=== PATIENT | female | born 1955 | race Caucasian/White ===

== ENCOUNTER 2022-08-14 11:01 | Outpatient (OUT) | payer OTHER, SELFPAY ==
--- NOTE | 2022-08-14 11:09 | MM_ITS ---
Patient: PIETRO FARFAN Exam Date: 08/14/2022 : 1955 Gender:F Ordering : DR. Jacklyn Andres D.O. Admission #: [id number] Family : JACKLYN ANDRES Order #: [id number] CLICK HERE TO VIEW EXAM RADIOLOGY REPORT PROCEDURE: MM TOMOSYNTHESIS SCREENING BI COMPARISON: MG MAMM SCREEN 3D MELECIO CAD, 05/29/2021. MG MAMM SCREEN MELECIO W CAD, 04/25/2020. MG MAMM SCREEN MELECIO W CAD, 12/01/2018. MG MAMM MELECIO SCRN W CAD DIG, 01/15/2012. INDICATIONS: Screening mammogram Z12.31 Calculator Name NCI Breast Cancer Risk Assessment Tool 5 Year Breast Cancer Risk 1.70% Lifetime Breast Cancer Risk 5.10% Personal Breast Cancer No Personal Ovarian Cancer No Treatments None Family Cancers None LOCATION: [facility] BREAST COMPOSITION: Heterogeneously dense,which may obscure small masses. FINDINGS: DIAGNOSTIC CATEGORY 2--BENIGN FINDING: RIGHT BREAST: No significant suspicious finding. Scattered benign-appearing calcifications are present. No significant change has occurred. LEFT BREAST: No significant suspicious finding. Scattered benign-appearing calcifications are present slowly increasing in number. RECOMMENDATIONS: ROUTINE MAMMOGRAM AND CLINICAL EVALUATION IN 12 MONTHS. PLEASE NOTE: A NORMAL MAMMOGRAM DOES NOT EXCLUDE THE POSSIBILITY OF BREAST CANCER. A CLINICALLY SUSPICIOUS PALPABLE LUMP SHOULD BE BIOPSIED. Dictated by: Zac Barber M.D. on 08/14/2022 at 16:50 Approved by: Zac Barber M.D. on 08/14/2022 at 16:53
== END 2022-08-14 11:02 ==
LOC: MAMMO 11:05
PROVIDERS: PCP Family Medicine; Visit Provider Family Medicine
DX: Z12.31 Encounter for screening mammogram for malignant neoplasm of breast (principal)
CPT/HCPCS: 77063; 77067

== ENCOUNTER 2023-09-03 10:20 | Outpatient (OUT) | payer OTHER, SELFPAY ==
--- NOTE | 2023-09-03 10:27 | MM_ITS ---
Patient Name: PIETRO FARFAN MR#: [id number] : 1955 Exam Date: 09/03/2023 Ordering Doctor: Paula Rodriguez RADIOLOGY REPORT PROCEDURE: MM TOMOSYNTHESIS SCREENING BI COMPARISON: MM TOMOSYNTHESIS SCREENING BI, 08/14/2022. MG MAMM SCREEN 3D MELECIO CAD, 05/29/2021. MG MAMM SCREEN MELECIO W CAD, 04/25/2020. MG MAMM MELECIO SCRN W CAD DIG, 01/15/2012. INDICATIONS: Screening Calculator Name NCI Breast Cancer Risk Assessment Tool 5 Year Breast Cancer Risk 1.70% Lifetime Breast Cancer Risk 4.80% Personal Breast Cancer No Personal Ovarian Cancer No Treatments None Family Cancers None LOCATION: [facility] BREAST COMPOSITION: The breasts are heterogeneously dense,which may obscure small masses. FINDINGS: DIAGNOSTIC CATEGORY 2--BENIGN FINDING: RIGHT BREAST: No significant suspicious finding. Scattered benign-appearing calcifications are present. No significant change has occurred. LEFT BREAST: No significant suspicious finding. Scattered benign-appearing calcifications are present. No significant change has occurred. RECOMMENDATIONS: ROUTINE MAMMOGRAM AND CLINICAL EVALUATION IN 12 MONTHS. PLEASE NOTE: A NORMAL MAMMOGRAM DOES NOT EXCLUDE THE POSSIBILITY OF BREAST CANCER. A CLINICALLY SUSPICIOUS PALPABLE LUMP SHOULD BE BIOPSIED. Dictated by: Zac Barber M.D. on 09/03/2023 at 15:07 Approved by: Zac Barber M.D. on 09/03/2023 at 15:11
== END 2023-09-03 10:21 | disposition home or self-care (01) ==
LOC: MAMMO 10:20
PROVIDERS: PCP Nurse Practitioner; Visit Provider Nurse Practitioner
DX: Z12.31 Encounter for screening mammogram for malignant neoplasm of breast (principal)
CPT/HCPCS: 77063; 77067

== ENCOUNTER 2024-03-29 09:36 | Emergency (ER) | payer OTHER, SELFPAY ==
[2024-03-29] VITALS (16 sets, daily range): BP systolic 120–132; BP diastolic 84–97; PULSE 80–89; TEMP 37.6; O2SAT 95–97; BMI 32.4
--- NOTE | 2024-03-29 10:06 | ECG_ITS ---
[facility] Test Date: 2024-03-29 Pat Name: PIETRO FARFAN Department: Room: - Gender: Female [employer]er: : 1955 Requested By: Order Number: [id number] Reading MD: SAL MCKOY Measurements Intervals [place] Rate: 87 P: 45 [place]: 170 QRS: 33 QRSD: 64 T: 12 QT: 332 QTc: 376 Interpretive Statements 1100 Sinus rhythm 4068 Nonspecific Twave abnormality 8102 Low QRS voltage in chest leads 9130 borderline ECG Compared to ECG 03/20/2022 05:07:44 Sinus tachycardia no longer present Electronically Signed On 03-29-2024 20:17:27 EST by SAL MCKOY
--- NOTE | 2024-03-29 10:07 | ED_ITS ---
HPI - Chest Pain General Chief Complaint: Chest Pain Stated Complaint: CHEST PAINS SOB Time Seen by Provider: 03/29/24 10:02 Source: patient Mode of arrival: Wheelchair History of Present Illness HPI narrative: 68-year-old female presents to the emergency department for chest pain. She has been having this intermittently for 4 days. They are sharp in the last 1 or 2 seconds at a time and it is in the middle part of her chest. She saw her doctor last week who ordered some tests and those have not yet been done. No cough or complaints of shortness of breath. No fever or back pain. Related Data Allergies Allergy/AdvReac Type Severity Reaction Status Date / Time No Known Drug Allergies Allergy Verified 03/29/24 10:01 Review of Systems ROS Narrative A ten point review of systems is negative except as noted above. [facility] Medical History (Updated 03/29/24 @ 12:33 by Simon Healy MD) Hypertension ?I10 - Essential (primary) hypertension (ICD-10) High cholesterol ?E78.00 - Pure hypercholesterolemia, unspecified (ICD-10) Diabetes ?E11.9 - Type 2 diabetes mellitus without complications (ICD-10) Exam Narrative Exam Narrative: Nurses note and vital signs reviewed and patient is not hypoxic. General: The patient appears well and in no apparent distress. Patient is resting comfortably on cart. Skin: Warm, dry, no pallor noted. There is no rash noted. Head: Normocephalic, atraumatic Eye: Normal conjunctiva, no drainage Ears, Nose, Mouth, and Throat: oral mucosa is moist. Nares patent. Cardiovascular: Regular Rate and Rhythm Respiratory: Patient is in no distress, no accessory muscle use, lungs are clear to auscultation, no wheezing, rales or rhonchi Back: non-tender GI: Soft and nontender Musculoskeletal: The patient has no evidence of calf tenderness, no pitting edema, symmetrical pulses noted bilaterally Neurological: A&O, normal speech Psychiatric: Cooperative Constitutional Vital Signs, click to edit/add: Last Vital Signs Temp 99.6 F 03/29/24 09:56 Pulse 84 03/29/24 12:00 Resp 16 03/29/24 12:00 BP 120/84 03/29/24 10:44 Pulse Ox 95 03/29/24 12:00 O2 Del Method Room Air 03/29/24 09:56 Course Vital Signs Vital signs: Vital Signs Temperature 99.6 F 03/29/24 09:56 Pulse Rate 89 03/29/24 09:56 Respiratory Rate 22 H 03/29/24 09:56 Blood Pressure 132/97 H 03/29/24 09:56 Pulse Oximetry 95 03/29/24 09:56 Oxygen Delivery Method Room Air 03/29/24 09:56 Temperature 99.6 F 03/29/24 09:56 Pulse Rate 84 03/29/24 12:00 Respiratory Rate 16 03/29/24 12:00 Blood Pressure 120/84 03/29/24 10:44 Pulse Oximetry 95 03/29/24 12:00 Oxygen Delivery Method Room Air 03/29/24 09:56 MDM - Chest Pain MDM Narrative Medical decision making narrative: Her workup here is negative including 2 sets of troponin. I do not suspect acute coronary syndrome at this point. She is going to follow-up with her [facility] doctor and have further testing that has been ordered including an echocardiogram as an outpatient. Treatment diagnosis and follow-up were discussed with the patient. Differential Diagnosis Differential diagnosis: Likely pneumothorax, stable angina, unstable angina pectoris, atypical chest pain, st elevation myocardial infarction, co stochondritis and chest pain Lab Data Attestation: I reviewed the patient's lab results. Labs: Lab Results 03/29/24 03/29/24 Range/Units 10:18 11:36 WBC 9.6 (4.0-11.0) 10^3/uL RBC 4.02 L (4.20-5.40) 10^6/uL Hgb 12.2 (12.0-16.0) g/dL Hct 36.9 (36.0-48.0) % MCV 91.8 (81.0-99.0) fL MCH 30.3 (26.7-34.0) pg MCHC 33.1 (29.9-35.2) g/dL RDW 12.6 (11.0-15.0) % Plt Count 260 (150-450) 10^3/uL MPV 10.8 (9.5-13.5) fL Seg Neuts % (Manual) 93.0 H (43.0-75.0) Band Neutrophils % 2.0 (0-5) % Lymphocytes % (Manual) 3.0 L (20.5-60.0) % Monocytes % (Manual) 2.0 (1.7-12.0) % Eosinophils % (Manual) 0.0 L (0.9-7.0) % Basophils % (Manual) 0.0 L (0.2-2.0) % Neutrophils # (Manual) 8.92 H (1.4-6.5) 10^3/uL Band Neutrophils # 0.2 (0.0-0.3) 10^3/uL Lymphocytes # (Manual) 0.28 L (1.20-3.80) 10^3/uL Monocytes # (Manual) 0.19 L (0.30-0.80) 10^3/uL Eosinophils # (Manual) 0.00 (0.00-0.70) 10^3/uL Basophils # (Manual) 0.00 (0.00-0.10) 10^3/uL Poikilocytosis 1+ Tear Drop Cells 1+ Sodium 137 (136-145) mmol/L Potassium 4.1 (3.5-5.1) mmol/L Chloride 104 (98-107) mmol/L Carbon Dioxide 26.2 (21.0-32.0) mmol/L Anion Gap 10.9 BUN 20.0 H (7.0-18.0) mg/dL Creatinine 1.02 (0.55-1.02) mg/dL Est GFR ( Amer) >60 (>=60 mL/min/1.73m^2) Est GFR (Non-Af Amer) 54 L (>=60 mL/min/1.73m^2) BUN/Creatinine Ratio 19.6 Glucose 183 H (74-106) mg/dL Calcium 9.0 (8.5-10.1) mg/dL Troponin I High Sens 5.2 4.5 (4.0-51.3) pg/mL Imaging Data Chest x-ray: Radiologist's impression: ITS Impressions Chest X-Ray 03/29/24 10:25 IMPRESSION: There is no acute cardiopulmonary process. Electronically authenticated by: CIRO SUMMERS Date: 03/29/2024 10:44 ECG Data Attestation: I personally reviewed and interpreted this ECG as follows: (EKG on my interpretation shows normal sinus rhythm with rate of 87 and no acute change.) Heart Score History: Slightly/Non-Suspicious ECG: Normal Age: >65 years Risk Factors: 1 or 2 Risk Factors Troponin: <Normal Limit Total Heart Score Recommendations & Risks:: 3 Discharge Plan Discharge Chief Complaint: Chest Pain Clinical Impression: Chest pain Patient Disposition: Home, Self-Care Time of Disposition Decision: 12:33 Condition: Good Mode of Transportation: Private Vehicle Print Language: Bhutanese Instructions: Chest Pain (ED) Referrals: Paula Rodriguez NP [Physician] - 1 week
[2024-03-29] MEDS: ASPIRIN 81 MG TAB.CHEW 324 MG PO (10:13)
[2024-03-29 10:25] LABS: Hematocrit 36.9 % (36.0-48.0); Hemoglobin 12.2 g/dL (12.0-16.0); Mean Corpuscular HGB Conc 33.1 g/dL (29.9-35.2); Mean Corpuscular Hemoglobin 30.3 pg (26.7-34.0); Mean Corpuscular Volume 91.8 fL (81.0-99.0); Mean Platelet Volume 10.8 fL (9.5-13.5); Platelet Count 260 10^3/uL (150-450); Red Blood Count 4.02 10^6/uL (4.20-5.40); Red Cell Distribution Width 12.6 % (11.0-15.0); White Blood Count 9.6 10^3/uL (4.0-11.0)
--- NOTE | 2024-03-29 10:25 | XR_ITS ---
The [address] [address] Patient Name: PIETRO FARFAN MRN: [id number] date: 1955 Sex: F Assigned Patient Location: ER Current Patient Location: ER Accession/Order Number: [id number] Exam Date: 03/29/2024 10:20 Report Date: 03/29/2024 10:44 At the request of: MARY JO MENDOZA Procedure: XR chest 1V EXAM: XR chest 1V HISTORY: CP COMPARISON: Chest radiograph dated 03/20/2022. TECHNIQUE: AP erect portable chest radiograph performed. FINDINGS: The trachea is unremarkable. Stable mild prominence of the cardiac silhouette. The mediastinal silhouette and hilar shadows are stable and unremarkable. Stable mild elevation of the right hemidiaphragm. There is no consolidation, pleural effusion or pulmonary vascular congestion. There is no pneumothorax or osseous abnormality. XR/XR chest 1V IMPRESSION: There is no acute cardiopulmonary process. Electronically authenticated by: CIRO SUMMERS Date: 03/29/2024 10:44
[2024-03-29 10:40] LABS: Band Neutrophils Absolute 0.2 10^3/uL (0.0-0.3); Segmented Neut Absolute Manual 8.92 10^3/uL (1.4-6.5)
[2024-03-29 10:41] LABS: Anion Gap 10.9; BUN Creatinine Ratio 19.6; Carbon Dioxide 26.2 mmol/L (21.0-32.0); Chloride 104 mmol/L (98-107); Estimated GFR (African America >60 (>=60 mL/min/1.73m^2); Estimated GFR (Non-African Ame 54 (>=60 mL/min/1.73m^2); Glucose 183 mg/dL (74-106); Lymphocytes Absolute Manual 0.28 10^3/uL (1.20-3.80); Monocytes Absolute Manual 0.19 10^3/uL (0.30-0.80); Potassium 4.1 mmol/L (3.5-5.1); Sodium 137 mmol/L (136-145); Troponin I High Sensitivity 5.2 pg/mL (4.0-51.3)
[2024-03-29 10:42] LABS: Poikilocytosis 1+; Tear Drop Cells 1+
[2024-03-29 12:02] LABS: Troponin I High Sensitivity 4.5 pg/mL (4.0-51.3)
== END 2024-03-29 12:52 | disposition home or self-care (01) ==
PROVIDERS: Emergency Provider Emergency Medicine
DX: R07.9 Chest pain, unspecified (principal)
CPT/HCPCS: 36415; 71045; 80048; 84484; 85007; 85027; 93005; 99285

== ENCOUNTER 2024-04-05 07:46 | Outpatient (OUT) | payer OTHER, SELFPAY ==
--- NOTE | 2024-04-05 07:47 | CA_ITS ---
Patient Name: PIETRO FARFAN MR#: [id number] : 1955 Exam Date: 04/05/2024 Ordering Doctor: BRIGID LAY ECHOCARDIOGRAM REPORT PROCEDURE: CA ECHO DOPPLER COMPLETE INDICATIONS: Chest pain, hypertension, diabetes COMPARISON: None. DESCRIPTION: COMPLETE ECHOCARDIOGRAM Real-time transthoracic echocardiography with 2D, M-mode, spectral and color flow Doppler performed. QUALITY: Technical quality was good. LEFT VENTRICLE: Normal chamber size. Normal left ventricular wall thickness. Normal systolic function. LV EF: Normal left ventricular ejection fraction, (65%). DIASTOLIC: Diastolic function is indeterminate. ATRIAL SEPTUM: Visually appears intact. LEFT ATRIUM: Normal chamber size. RIGHT ATRIUM: Normal chamber size. RIGHT VENTRICLE: Normal chamber size. Normal right ventricular systolic function. TRICUSPID VALVE: Normal mobility and thickness. No stenosis with trivial regurgitation. Unable to assess right-sided pressures due to lack of measurable tricuspid regurgitation. MITRAL VALVE: Normal mobility and thickness. No evidence of mitral valve stenosis. There is no mitral annular calcification. No mitral regurgitation. AORTIC VALVE: Normal trileaflet appearance. No visible sclerosis. Normal leaflet mobility. No evidence of aortic valve stenosis. No aortic regurgitation. AORTIC ROOT: Normal diameter and appearance, measuring 2.5 cm. Ascending aorta is normal in size, measuring 2.7 cm. PULMONIC VALVE: Normal thickness and mobility. No stenosis. No regurgitation. PERICARDIUM: No evidence of pericardial effusion. IVC: Collapses with inspirations. PLEURA: CONCLUSION: 1. Normal ventricular size and systolic function. LVEF is estimated at 65%. 2. No significant valvular dysfunction. 3. Unable to assess right-sided pressures due to lack of measurable tricuspid regurgitation. Adult Echocardiography Procedure Report Left Ventricle LVEDD (3.7 - 5.6 cm): 4.99 cm LVESD (2.2 - 4.0 cm): 2.65 cm LVIVS thickness (0.6 - 1.2 cm): 0.83 cm LVPW thickness (0.5 - 1.0 cm): 0.89 cm e': 0.06 m/s E - e': 11.71 LVOT Max Gradient: 5.50 mm[Hg] LVOT Area (cm2): 1.17 m/s Peak Velocity (LVOT): 1.17 m/s Mean Velocity (LVOT): 0.63 m/s LVOT Diameter 2.01 cm Left Atrium LA Volume Index (2D A2C): 29.87 ml/m2 Left Atrium Systolic Dimension: 3.47 cm Mitral Valve MV E to A Ratio: 0.85 Mitral Valve A-Wave Peak Velocity: 0.85 m/s Mitral Valve E-Wave Peak Velocity: 0.71 m/s Right Ventricle Aorta AO Root Diam: 2.50 cm Ascending Ao Diam: 2.66 cm Aortic Valve AoV Area (Peak Daniel): 2.18 cm2, 2.18 cm2 AoV Area (VTI): 2.17 cm2, 2.17 cm2 Peak Velocity(Antegrade Flow): 1.71 m/s Peak Gradient(Antegrade Flow): 11.72 mm[Hg] Mean Velocity(Antegrade Flow): 1.10 m/s Mean Gradient(Antegrade Flow): 5.49 mm[Hg] Velocity Time Integral: 33.71 cm Tricuspid Valve Pulmonic Valve Mean Gradient: 2.34 mm[Hg] Mean Velocity: 0.71 m/s Peak Velocity: 1.09 m/s, 1.00 m/s Peak Gradient: 4.01 mm[Hg], 4.71 mm[Hg] Right Atrium Right Atrium Systolic Pressure: 40.43 ml, 40.43 ml Dictated by: Brandon Vasquez M.D. on 04/05/2024 at 09:23 Approved by: Brandon Vasquez M.D. on 04/05/2024 at 09:27
== END 2024-04-05 07:47 | disposition home or self-care (01) ==
LOC: CARD 07:46
DX: R07.9 Chest pain, unspecified (principal)
CPT/HCPCS: 93306

== ENCOUNTER 2024-04-28 10:03 | Outpatient (OUT) | payer OTHER, SELFPAY ==
--- OUTSIDE RECORDS SUMMARY | 2024-04-28 10:08 | XMS_ITS | CCD ---
Author Organization [facility] Care Team Providers Care Truck Hopper Name Role Phone PHYSICIAN, DEFAULT Unavailable Unavailable PHYSICIAN, DEFAULT Unavailable Unavailable SADI ROSAS Admitting Unavailable SADI ROSAS Attending Unavailable [facility] Primary Care Unavailable WEST, DR BENJAMIN Marshall Consulting Unavailable SADI ROSAS Consulting Unavailable WESLEY, DR AN Admitting Unavailable WESLEY, DR AN Attending Unavailable REQUEST, DR RIOJAS LISTED Primary Care Unavaila de BARBER, DR ZAC Mulligan Consulting Unavailable AHMED, DR AN Consulting Unavailable GUERDA CARRILLO Attending Unavailable CHRISTOPHER RODRIGUEZ Referring Unavailable SID MURPHY Primary Care Unavailable UnallocatDean martin MD Provider Primary Care Provi shaji Shannan Garvey MD Unavailable [phone] Medications Current Medications Medication Drug Class(es) Dates Sig (Normalized) Sig (Original) amLODIPine 10 mg oral tablet (2 sources) Dihydropyridine Calcium Channel Rakan amLODIPine (Norvasc) 10 MG tablet Active cinnamon bark 500 mg oral capsule (2 sources) cinnamon 500 MG capsule as directed Orally Active meloxicam 15 mg oral tablet (2 sources) Nonsteroidal Anti-inflammatory Drug Start: 10-23-2023 End: 11-13-2023 take 1 tablet by mouth once daily meloxicam (Mobic) 15 MG tablet Indications: Plantar fasciitis, bilateral Take 1 tablet (15 mg) by mouth Daily for 21 days 21 tablet 10/23/2023 11/13/2023 Active metFORMIN hydrochloride 850 mg oral tablet (2 sources) Biguanide metFORMIN (Glucophage) 850 MG tablet Active rosuvastatin calcium 10 mg oral tablet (2 sources) HMG-CoA Reductase Inhibitor rosuvastatin (Crestor) 10 MG tablet Active Problems Active Problems Problem Classification Problem Date Documented Da te Episodic/Chronic Conditions associated with dizziness or vertigo (1 source) Dizziness and giddiness; Translations: [Dizziness and giddiness] Onset: 11-11-2023 Episodic Diabetes mellitus with complications (2 sources) Type 2 diabetes mellitus with other diabetic neurological complication; Translations: [Diabetes with neurological manifestations, type II or unspecified type, not stated as uncontrolled] 10-23-2023 Chronic Malaise and fatigue (1 source) Other fatigue; Translations: [Other fatigue] Onset: 11-11-2023 Episodic Nausea and vomiting (1 source) Nausea; Translations: [Nausea] Onset: 11-11-2023 Episodic Past or Other Problems Problem Classification Problem Date Documented Da te Episodic/Chronic Other connective tissue disease (2 sources) Bilateral plantar fasciitis; Translations: [Plantar fascial fibromatosis] 10-23-2023 Episodic Other connective tissue disease (4 sources) Deformity of lower limb; Translations: [Contracture of muscle, right lower leg] 10-23-2023 Episodic Other screening for suspected conditions (not mental disorders or infectious disease) (4 sources) Encounter for screening mammogram for malignant neoplasm of breast; Translations: [ENC SCR MAMMO MALIG NEOPLASM BREAST] Onset: 05-29-2021 Episodic Results Test Name Value Interpretation Reference Range Facility CBC AND AUTO DIFFon 11-11-19 24 ABSOLUTE BASOPHIL 0.0 X10E9/L Normal 0.0-0.2 [facility] Comment on above: Performed By: #### C BCA, CMP, TSHR #### [facility] ([id number]) [address] [place] [address] 44088 #### 3051-0 #### [facility] ([id number]) [address], [address] [place] [address] ABSOLUTE NEUTROPHIL 3.3 X10E9/L Normal 1.5-6.6 [facility] Comment on above: Performed By: #### C BCA, CMP, TSHR #### [facility] ([id number]) [address] [place] [address] 73088 #### 3051-0 #### [facility] ([id number]) [address], [address] [place] [address] Basophils/100 WBC (Bld) 0.7 % Normal [facility] Comment on above: Performed By: #### C BCA, CMP, TSHR #### [facility] ([id number]) [address] [place] [address] 95589 #### 3051-0 #### [facility] ([id number]) [address], [address] [place] [address] Eosinophils (Bld) [#/Vol] 0.1 10*3/uL Normal 0.0-0.4 [facility] Comment on above: Performed By: #### C BCA, CMP, TSHR #### [facility] ([id number]) [address] [place] [address] 55829 #### 3051-0 #### [facility] ([id number]) [address], [address] [place] [address] Eosinophils/100 WBC (Bld) 1.6 % Normal [facility] Comment on above: Performed By: #### C BCA, CMP, TSHR #### [facility] ([id number]) [address] [place] [address] 17995 #### 3051-0 #### [facility] ([id number]) [address], [address] [place] [address] Erythrocyte distribution width (RBC) [Ratio] 13.3 % Normal 11.5-15.0 [facility] Comment on above: Performed By: #### C BCA, CMP, TSHR #### [facility] ([id number]) [address] [place] [address] 60231 #### 3051-0 #### [facility] ([id number]) [address], [address] [place] [address] Hematocrit (Bld) [Volume fraction] 37.7 % Normal 35-47 [facility] Comment on above: Performed By: #### C BCA, CMP, TSHR #### [facility] ([id number]) [address] [place] [address] 88598 #### 3051-0 #### [facility] ([id number]) [address], [address] [place] [address] Hemoglobin (Bld) [Mass/Vol] 12.7 g/dL Normal 11.7-15.5 [facility] Comment on above: Performed By: #### C BCA, CMP, TSHR #### [facility] ([id number]) [address] [place] [address] 44390 #### 3051-0 #### [facility] ([id number]) [address], [address] [place] [address] Lymphocytes (Bld) [#/Vol] 1.4 10*3/uL Normal 1.0-3.5 [facility] Comment on above: Performed By: #### C BCA, CMP, TSHR #### [facility] ([id number]) [address] [place] [address] 21405 #### 3051-0 #### [facility] ([id number]) [address], [address] [place] [address] Lymphocytes/100 WBC (Bld) 26.3 % Normal [facility] Comment on above: Performed By: #### C BCA, CMP, TSHR #### [facility] ([id number]) [address] [place] [address] 60945 #### 3051-0 #### [facility] ([id number]) [address], [address] [place] [address] MCH (RBC) [Entitic mass] 30.1 pg Normal 27-34 [facility] Comment on above: Performed By: #### C BCA, CMP, TSHR #### [facility] ([id number]) [address] [place] [address] 56502 #### 3051-0 #### [facility] ([id number]) [address] [place] [address] MCHC (RBC) [Mass/Vol] 33.6 g/dL Normal 32-36 [facility] Comment on above: Performed By: #### C BCA, CMP, TSHR #### [facility] ([id number]) [address] [place] [address] 10177 #### 3051-0 #### [facility] ([id number]) [address] [place] [address] MCV (RBC) [Entitic vol] 90 fL Normal 80-100 [facility] Comment on above: Performed By: #### C BCA, CMP, TSHR #### [facility] ([id number]) [address] [place] [address] 92495 #### 3051-0 #### [facility] ([id number]) [address] [place] [address] Monocytes (Bld) [#/Vol] 0.4 10*3/uL Normal 0-0.9 [facility] Comment on above: Performed By: #### C BCA, CMP, TSHR #### [facility] ([id number]) [address] [place] [address] 79135 #### 3051-0 #### [facility] ([id number]) [address] [place] [address] Monocytes/100 WBC (Bld) 7.4 % Normal [facility] Comment on above: Performed By: #### C BCA, CMP, TSHR #### [facility] ([id number]) [address] [place] [address] 44093 #### 3051-0 #### [facility] ([id number]) [address] [place] [address] Neutrophils/100 WBC (Bld) 64.0 % Normal [facility] Comment on above: Performed By: #### C BCA, CMP, TSHR #### [facility] ([id number]) [address] [place] [address] 40632 #### 3051-0 #### [facility] ([id number]) [address] [place] [address] Platelet mean volume (Bld) [Entitic vol] 9.0 fL Normal 7-12 [facility] Comment on above: Performed By: #### C BCA, CMP, TSHR #### [facility] ([id number]) [address] [place] [address] 37894 #### 3051-0 #### [facility] ([id number]) [address] [place] [address] Platelets (Bld) [#/Vol] 271 10*3/uL Normal 150-450 [facility] Comment on above: Performed By: #### C BCA, CMP, TSHR #### [facility] ([id number]) [address] [place] [address] 71054 #### 3051-0 #### [facility] ([id number]) [address] [place] [address] RBC COUNT 4.20 X10E12/L Normal 3.80-5.20 [facility] Comment on above: Performed By: #### C BCA, CMP, TSHR #### [facility] ([id number]) [address] [place] [address] 63063 #### 3051-0 #### [facility] ([id number]) [address] [place] [address] WBC (Bld) [#/Vol] 5.2 10*3/uL Normal 4.0-11.0 [facility] Comment on above: Performed By: #### C BCA, CMP, TSHR #### [facility] ([id number]) [address] [place] [address] 56217 #### 3051-0 #### [facility] ([id number]) [address] [place] [address] COMPREHENSIVE METABOLIC PANE Ollie 11-11-2023 Albumin [Mass/Vol] 4.5 g/dL Normal 3.2-5.3 [facility] Comment on above: Performed By: #### C BCA, CMP, TSHR #### [facility] ([id number]) [address] [place] [address] 75681 #### 3051-0 #### [facility] ([id number]) [address] [place] [address] ALP [Catalytic activity/Vol] 68 U/L Normal 39-130 [facility] Comment on above: Performed By: #### C BCA, CMP, TSHR #### [facility] ([id number]) [address] [place] [address] 99560 #### 3051-0 #### [facility] ([id number]) [address] [place] [address] ALT [Catalytic activity/Vol] 24 U/L Normal 0-31 [facility] Comment on above: Performed By: #### C BCA, CMP, TSHR #### [facility] ([id number]) [address] [place] [address] 13401 #### 3051-0 #### [facility] ([id number]) [address] [place] [address] Anion gap [Moles/Vol] 8 mmol/L Normal 5-15 [facility] Comment on above: Performed By: #### C BCA, CMP, TSHR #### [facility] ([id number]) [address] [place] [address] 84887 #### 3051-0 #### [facility] ([id number]) [address] [place] [address] AST [Catalytic activity/Vol] 21 U/L Normal 0-41 [facility] Comment on above: Performed By: #### C BCA, CMP, TSHR #### [facility] ([id number]) [address] [place] [address] 65576 #### 3051-0 #### [facility] ([id number]) [address], [address] [place] [address] Bilirubin [Mass/Vol] 0.5 mg/dL Normal 0.3-1.2 [facility] Comment on above: Performed By: #### C BCA, CMP, TSHR #### [facility] ([id number]) [address] [place] [address] 91480 #### 3051-0 #### [facility] ([id number]) [address] [place] [address] Calcium [Mass/Vol] 9.3 mg/dL Normal 8.5-10.5 [facility] Comment on above: Performed By: #### C BCA, CMP, TSHR #### [facility] ([id number]) [address] [place] [address] 03367 #### 3051-0 #### [facility] ([id number]) [address] [place] [address] Chloride [Moles/Vol] 105 mmol/L Normal 98-109 [facility] Comment on above: Performed By: #### C BCA, CMP, TSHR #### [facility] ([id number]) [address] [place] [address] 11794 #### 3051-0 #### [facility] ([id number]) [address] [place] [address] CO2 [Moles/Vol] 23 mmol/L Normal 22-32 [facility] Comment on above: Performed By: #### C BCA, CMP, TSHR #### [facility] ([id number]) [address] [place] [address] 17207 #### 3051-0 #### [facility] ([id number]) [address] [place] [address] Creatinine [Mass/Vol] 1.23 mg/dL High 0.40-1.00 [facility] Comment on above: Result Comment: METH OD TRACEABLE TO IDMS STANDARD Performed By: #### C BCA, CMP, TSHR #### [facility] ([id number]) [address] [place] [address] 61977 #### 3051-0 #### [facility] ([id number]) [address] [place] [address] GFR/1.73 sq M.predicted among non-blacks MDRD (S/P/Bld) [Vol rate/Area] 47 mL/min/{1.73_m2} Low >59 [facility] Comment on above: Result Comment: Reported eGFR is based on the CKD-EPI 2020 equation that does not use a race coefficient. Performed By: #### C BCA, CMP, TSHR #### [facility] ([id number]) [address] [place] [address] 94800 #### 3051-0 #### [facility] ([id number]) [address] [place] [address] Glucose [Mass/Vol] 127 mg/dL High 65-99 [facility] Comment on above: Performed By: #### C BCA, CMP, TSHR #### [facility] ([id number]) [address] [place] [address] 03318 #### 3051-0 #### [facility] ([id number]) [address] [place] [address] Potassium [Moles/Vol] 4.3 mmol/L Normal 3.5-5.0 [facility] Comment on above: Performed By: #### C BCA, CMP, TSHR #### [facility] ([id number]) [address] [place] [address] 40280 #### 3051-0 #### [facility] ([id number]) [address] [place] [address] Protein [Mass/Vol] 8.5 g/dL High 6.0-8.0 [facility] Comment on above: Performed By: #### C BCA, CMP, TSHR #### [facility] ([id number]) [address] [place] [address] 07453 #### 3051-0 #### [facility] ([id number]) [address] [place] [address] Sodium [Moles/Vol] 136 mmol/L Normal 134-146 [facility] Comment on above: Performed By: #### C BCA, CMP, TSHR #### [facility] ([id number]) [address] [place] [address] 09077 #### 3051-0 #### [facility] ([id number]) [address] [place] [address] Urea nitrogen [Mass/Vol] 25 mg/dL Normal 5-27 [facility] Comment on above: Performed By: #### C BCA, CMP, TSHR #### [facility] ([id number]) [address] [place] [address] 81027 #### 3051-0 #### [facility] ([id number]) [address] [place] [address] FREE T3on 11-11-2023 Free T3 [Mass/Vol] 3.18 pg/mL Normal 2.50-3.90 [facility] Comment on above: Performed By: #### C BCA, CMP, TSHR #### [facility] ([id number]) [address] [place] [address] 48900 #### 3051-0 #### [facility] ([id number]) [address] [place] [address] TSH WITH REFLEXon 11-11-2023 TSH 0.93 uIU/mL Normal 0.49-4.67 [facility] Comment on above: Performed By: #### C BCA, CMP, TSHR #### [facility] ([id number]) [address] [place] [address] 85116 #### 3051-0 #### [facility] ([id number]) [address] [place] [address] CARDIAC ANDREY ADMITon 023 CK [Catalytic activity/Vol] 49 U/L Normal 26-192 [facility] Comment on above: Performed By: #### B CORWIN SALDANA #### [facility] [address] [address] [address] Amy Pillai CK.MB [Mass/Vol] ng/mL Normal <=3.60 [facility] Comment on above: Performed By: #### B LES, CMADM #### [facility] [address] [address] [address] Amy Pillai HSTROP 5.6 pg/mL Normal 4.0-51.3 [facility] Comment on above: Result Comment: CUT- OFF POINTS HAVE BEEN ESTABLISHED BASED ON THE FOURTH UNIVERSAL DEFINITIONS OF MYOCARDIAL INFARCTION. THE UPPER REFERENCE LIMIT (URL) OF TROPONIN, DEFINED THE 99TH PERCENTILE OF cTnI DISTRIBUTION IN A REFERENCE POPULATION, HAS BEEN CONFIRMED THE DECISION THRESHOLD FOR VA DIAGNOSIS. Performed By: #### B CORWIN SALDANA #### [facility] [address] [place] [address] Dr. Amy Pillai NAZIA 27 ng/mL Normal 9-82 [facility] Comment on above: Performed By: #### B CORWIN SALDANA #### [facility] [address] [place] [address] Dr. Amy Pillai CBC W MANUAL DIFFon 03-20-19 ATYPICAL LYMPH # Normal [facility] Comment on above: Performed By: #### C PAOLA #### [facility] [address] [place] [address] Dr. Amy Pillai ATYPICAL LYMPH % Normal [facility] Comment on above: Performed By: #### C PAOLA #### [facility] [address] [place] [address] Dr. Amy Pillai BAND # 0.0 103/ul Normal 0.0-0.3 [facility] Comment on above: Performed By: #### C PAOLA #### [facility] [address] [place] [address] Dr. Amy Pillai BAND % 0 % Normal 0-5 [facility] Comment on above: Performed By: #### C PAOLA #### [facility] [address] [place] [address] Dr. Amy Pillai BASOM # 0.00 103/ul Normal 0.00-0.10 [facility] Comment on above: Performed By: #### C PAOLA #### [facility] [address] [place] [address] Dr. Amy Pillai BASOM % 0.0 % Critically low 0.2-2.0 [facility] Comment on above: Performed By: #### C PAOLA #### [facility] [address] [place] [address] Dr. Amy Pillai BLAST # Normal [facility] Comment on above: Performed By: #### C PAOLA #### [facility] [address] [address] [address] Amy Pillai BLAST % Normal [facility] Comment on above: Performed By: #### C PAOLA #### [facility] [address] [address] [address] Amy Pillai CORRECTED WBC Normal 4.0-11.0 [facility] Comment on above: Performed By: #### C PAOLA #### [facility] [address] [place] [address] Dr. Amy Pillai EOS # 0.00 103/ul Normal 0.00-0.70 [facility] Comment on above: Performed By: #### C PAOLA #### [facility] [address] [place] [address] Dr. Amy Pillai EOS% 0.0 % Critically low 0.9-7.0 [facility] Comment on above: Performed By: #### C PAOLA #### [facility] [address] [place] [address] Dr. Amy Pillai HCT 34.9 % Critically low 36.0-48.0 [facility] Comment on above: Performed By: #### C PAOLA #### [facility] [address] [place] [address] Dr. Amy Pillai HGB 11.6 g/dl Critically low 12.0-16.0 [facility] Comment on above: Performed By: #### C PAOLA #### [facility] [address] [address] [address] Amy Pillai LYMPHM # 0.74 103/ul Critically low 1.20-3.80 [facility] Comment on above: Performed By: #### C PAOLA #### [facility] [address] [place] [address] Dr. Amy Pillai LYMPHM% 11.0 % Critically low 20.5-60.0 [facility] Comment on above: Performed By: #### C PAOLA #### [facility] [address] [place] [address] Dr. Amy Pillai MCH 29.2 pg Normal 26.7-34.0 [facility] Comment on above: Performed By: #### C PAOLA #### [facility] [address] [place] [address] Dr. Amy Pillai MCHC 33.2 g/dl Normal 29.9-35.2 [facility] Comment on above: Performed By: #### C BCSHEILA #### [facility] [address] [place] [address] Dr. Amy Pillai MCV 87.9 fL Normal 81.0-99.0 [facility] Comment on above: Performed By: #### C BCMAN #### [facility] [address] [place] [address] Dr. Amy Pillai METAMYELOCYTE # Normal [facility] Comment on above: Performed By: #### C PAOLA #### [facility] [address] [place] [address] Dr. Amy Pillai METAMYELOCYTE % Normal [facility] Comment on above: Performed By: #### C PAOLA #### [facility] [address] [place] [address] Dr. Amy Pillai MONOM# 0.27 103/ul Critically low 0.30-0.80 [facility] Comment on above: Performed By: #### C PAOLA #### [facility] [address] [place] [address] Dr. Amy Pillai MONOM% 4.0 % Normal 1.7-12.0 [facility] Comment on above: Performed By: #### C BCSHEILA #### [facility] [address] [place] [address] Dr. Amy Pillai MPV 11.2 fL Normal 9.5-13.5 [facility] Comment on above: Performed By: #### C BCMAN #### [facility] [address] [place] [address] Dr. Amy Pillai MYELOCYTE # Normal [facility] Comment on above: Performed By: #### C PAOLA #### [facility] [address] [place] [address] Dr. Amy Pillai MYELOCYTE % Normal [facility] Comment on above: Performed By: #### C PAOLA #### [facility] [address] [place] [address] Dr. Amy Pillai NRBC Normal [facility] Comment on above: Performed By: #### C PAOLA #### [facility] [address] [place] [address] Dr. Amy Pillai PLT 259 103/ul Normal 150-450 [facility] Comment on above: Performed By: #### C PAOLA #### [facility] [address] [address] [address] Amy Pillai RBC 3.97 106/ul Critically low 4.20-5.40 [facility] Comment on above: Performed By: #### C PAOLA #### [facility] [address] [place] [address] Dr. Amy Pillai RDW 12.6 % Normal 11.0-15.0 [facility] Comment on above: Performed By: #### C PAOLA #### [facility] [address] [place] [address] Dr. Amy Pillai SEG # 5.70 103/ul Normal 1.40-6.50 [facility] Comment on above: Performed By: #### C PAOLA #### [facility] [address] [place] [address] Dr. Amy Pillai SEG % 85.0 % Critically high 43.0-75.0 [facility] [place] Comment on above: Performed By: #### C PAOLA #### [facility] [address] [place] [address] Dr. Amy Pillai WBC 6.7 103/ul Normal 4.0-11.0 [facility] Comment on above: Performed By: #### C PAOLA #### [facility] [address] [place] [address] FACIAL BONES WO CONon CT FACIAL BONES WO CON EXAMINATION: CT FACIAL BONES WO CON HISTORY: HEADACHE COMPARISON: No relevant comparison available. TECHNIQUE: Axial, Coronal, and Sagittal CT images created without IV contrast. Dose reduction techniques were achieved by using automated exposure control and/or adjustment of mA and/or kV according to patient size and/or use of iterative reconstruction technique. FINDINGS: FACIAL BONES: No bony lesion or fracture. SINUSES: No visible mass, significant fluid or mucosal thickening. NASAL FOSSA: No mass, fracture, or significant septal deviation. SKULL BASE: No mass or bone destruction. ORBITS: No visible mass, hematoma, edema or fracture. CAVERNOUS SINUS: No visible lesion, symmetric appearance. SALIVARY GLANDS: No mass. Unremarkable parotid and submandibular glands. OTHER: No lymphadenopathy. Unremarkable nasopharynx, oropharynx, and oral cavity. IMPRESSION: No acute abnormality Electronically authenticated by: BENJAMIN MAGUIRE Date: 2022-03-20 06:51 Normal [facility] CT HEAD WO CONon 03-20-2022 CT HEAD WO CON EXAMINATION: CT HEAD WO CON, 03/20/2022 6:05 AM EST HISTORY: HEADACHE COMPARISON: None. TECHNIQUE: CT scan of the head was performed without IV contrast. CT dose reduction technique was used, including Automated Exposure Control. FINDINGS: BRAIN: Mild generalized supratentorial atrophy. Scattered white matter hypoattenuation, chronic small vessel ischemic changes are favored. No acute parenchymal hemorrhage or mass CSF SPACES: No hydrocephalus, subarachnoid hemorrhage, or mass. Appropriate for age. Incidental calcifications of the falx SKULL: No fracture, mass, or other significant visible lesion. SINUSES: No significant mucosal thickening or fluid on the limited views. ORBITS: No appreciable abnormality on the limited views. OTHER: Negative IMPRESSION: Atrophy and white matter disease. Chronic changes are favored Electronically authenticated by: BENJAMIN MAGUIRE Date: 2022-03-20 06:48 Normal [facility] Covid-19 PCR (CVDTB)on 03-03 SARS-CoV-2 (COVID-19) RNA SHANTEL+probe Ql (Unsp spec) Not detected Normal NOT DETECTED [facility] Comment on above: Result Comment: When diagnostic testing is negative, the possibility of a false negative should be considered in the context of a patient's recent exposures and the presence of clinical signs and symptoms consistent with SARS-CoV-2. This test is not yet approved or cleared by the [place] FDA. When there are no FDA-approved or cleared tests available, and other criteria are met, FDA can make tests available under an emergency access mechanism called an Emergency Use Authorization (EUA). The EUA for this test is supported by the Electronic Resources Librarian of Health and Human Service's declaration that circumstances exist to justify the emergency use of in vitro diagnostics for the detection and/or diagnosis of the virus that causes COVID-19. This EUA will remain in effect for the duration of the COVID-19 declaration justifying emergency of IVDs, unless it is terminated or revoked by the FDA (after which the test may no longer be used). Performed By: #### C VDTBH #### [facility] [address] [place] [address] Dr. Amy Pillai D-DIMERon 03-20-2022 D-DIMER 0.52 mg/L FEU Normal <=0.59 [facility] Comment on above: Performed By: #### D DIM #### [facility] [address] [place] [address] Dr. Amy Pillai D-DIMER COMMENTS SEE BELOW Normal [facility] Comment on above: Result Comment: Incr eases in D-Dimer concentration observed with thromboembolic events can be variable due to localization, size, and age of the thrombus. Therefore, a thromboembolic event cannot be diagnosed with certainty on the basis of the reference range. D-Dimers may also be elevated for a variety of disorders including: advanced age, , coronary disease, cancer, liver disease, infection, inflammation, hematoma, DIC, trauma, post-surgery, diabetes, thrombolytic or anticoagulant therapy, stress, and generalized hospitalization. Performed By: #### D DIM #### [facility] [address] [place] [address] Dr. Amy Pillai INFLUENZA A AND B AGon 03-20 INFLUENZA A AG Negative Normal NEGATIVE SEE COMMENT [facility] Comment on above: Performed By: #### I NFLUAB ####[facility] [id number] [id number]. Amy Pillai INFLUENZA B AG Negative Normal NEGATIVE SEE COMMENT [facility] Comment on above: Performed By: #### I NFLUAB ####[facility] [id number] [id number]. Amy Pillai LACTATE/LACTIC ACIDon 2022 Lactate [Moles/Vol] 1.1 mmol/L Normal 0.4-1.9 [facility] Comment on above: Performed By: #### L ACT #### [facility] [address] [place] [address] Dr. Amy Pillai PROF CHEM 8 (BAS METB)on Anion gap [Moles/Vol] 14.0 mmol/L Normal [facility] Comment on above: Performed By: #### B LSE, CMADM #### [facility] [address] [place] [address] Dr. Amy Pillai Calcium [Mass/Vol] 9.4 mg/dL Normal 8.5-10.1 [facility] Comment on above: Performed By: #### B LES, SCOTTYDM #### [facility] [address] [place] [address] Dr. Amy Pillai Chloride [Moles/Vol] 101 mmol/L Normal 98-107 [facility] Comment on above: Performed By: #### B LES, CMADM #### [facility] [address] [place] [address] Dr. Amy Pillai CO2 [Moles/Vol] 24.0 mmol/L Normal 21.0-32.0 [facility] Comment on above: Performed By: #### B LES, CMADM #### [facility] [address] [place] [address] Dr. Amy Pillai Creatinine [Mass/Vol] 0.93 mg/dL Normal 0.55-1.02 [facility] Comment on above: Performed By: #### B LES, CMADM #### [facility] [address] [place] [address] Dr. Amy Pillai EGFR-AF CHILEAN >60 Normal >=60 [facility] Comment on above: Performed By: #### B LES, CMADM #### [facility] [address] [place] [address] Dr. Amy Pillai EGFR-NON AF CHILEAN 60 mL/min/1.73m2 Normal >=60 [facility] Comment on above: Performed By: #### B LES, CMADM #### [facility] [address] [address] [address] Amy Pillai Glucose [Mass/Vol] 169 mg/dL Critically high 74-106 T [facility] Comment on above: Performed By: #### B LES, CMADM #### [facility] [address] [address] [address] Amy Pillai Potassium [Moles/Vol] 4.0 mmol/L Normal 3.5-5.1 [facility] Comment on above: Performed By: #### B LES, CMADM #### [facility] [address] [address] [address] Amy Pillai Sodium [Moles/Vol] 135 mmol/L Critically low 136-145 Th [facility] Comment on above: Performed By: #### B LES, CMADM #### [facility] [address] [place] [address] Dr. Amy Pillai Urea nitrogen [Mass/Vol] 12.0 mg/dL Normal 7.0-18.0 [facility] Comment on above: Performed By: #### B LES, CMADM #### [facility] [address] [address] [address] Amy Pillai Urea nitrogen/Creatinine [Mass ratio] 12.9 mg/mg Normal [facility] Comment on above: Performed By: #### B LES, CMADM #### [facility] [address] [place] [address] Dr. Amy Pillai XR CHEST 2 Von 03-20-2022 XR CHEST 2 V EXAMINATION: XR CHES T 2 V HISTORY: COUGH COMPARISON: 07/19/2017 TECHNIQUE: PA and lateral FINDINGS: LUNGS: No significant pulmonary parenchymal abnormalities. VASCULATURE: No increased pulmonary vasculature. PLEURA: No pneumothorax, effusion, or pleural thickening. CARDIAC: No cardiomegaly or cardiac silhouette abnormality. MEDIASTINUM: No visible mass or adenopathy. BONES: No fracture or visible bone lesion. OTHER: Negative. IMPRESSION: No acute disease. Electronically authenticated by: BENJAMIN MAGUIRE Date: 2022-03-20 06:44 Normal [facility] MAMM SCREEN 3D MELECIO CADon 05-29-2021 MG MAMM SCREEN 3D MELECIO CAD Patient: CHIQUITA FARFAN Exam Date: 05/29/2021 : 1955 Gender:F Ordering : DR JUVE OLSON Admission #: [id number] Family : Order #: [id number] CLICK HERE TO VIEW EXAM RADIOLOGY REPORT PROCEDURE: MAMMOGRAM SCREENING 3D BILATERAL CAD COMPARISON: MG MAMM SCREEN MELECIO W CAD, 04/25/2020. MG MAMM SCREEN MELECIO W CAD, 12/01/2018. INDICATIONS: Screening mammography Calculator Name NCI Breast Cancer Risk Assessment Tool 5 Year Breast Cancer Risk 1.70% Lifetime Breast Cancer Risk 5.30% Personal Breast Cancer No Personal Ovarian Cancer No Treatments None Family Cancers None LOCATION: [facility] BREAST COMPOSITION: Heterogeneously dense,which may obscure small masses. FINDINGS: DIAGNOSTIC CATEGORY 2--BENIGN FINDING: RIGHT BREAST: No significant suspicious finding. Scattered benign-appearing calcifications are present. No significant change has occurred. LEFT BREAST: No significant suspicious finding. Scattered benign-appearing calcifications are present. No significant change has occurred. RECOMMENDATIONS: ROUTINE MAMMOGRAM AND CLINICAL EVALUATION IN 12 MONTHS. PLEASE NOTE: A NORMAL MAMMOGRAM DOES NOT EXCLUDE THE POSSIBILITY OF BREAST CANCER. A CLINICALLY SUSPICIOUS PALPABLE LUMP SHOULD BE BIOPSIED. Dictated by: Zac Barber M.D. on 05/29/2021 at 15:34 Approved by: Zac Barber M.D. on 05/29/2021 at 15:40 Normal [facility] General Surgery Office/Clini c Noteon 11-22-2019 General Surgery Office/Clinic Note Chief Complaint self referral for ABD pain HPI Staff 64 year old female presents on self referral from [facility] ED for complaint of abdominal pain. CT ABD/pelvis completed on 11/07 while in ED. Patient thought ABD pain may be related to constipation; took mag citrate after discharge from ED which produced BM but did not improve her pain. Complains of bloating. Denies nausea or vomiting. Last colonoscopy greater then 10 years ago reported normal per patient. Long standing history of constipation. Has taken Ex-lax, stool softeners and Miralax which help at times and not at other times. History of Present Illness 64 yo female with h/o htn, back pain, recently seen in ED at [facility] for constipation and mid/LLQ crampy abdominal pain; takes stimulant laxatives frequently; had abd/pelvic ct scan with no significant abnormality; took mg citrate with some improvement; still only small bms, some cramping, no N/V; no fevers; no change with eating, normal appetite; no blood in stools; normal colonoscopy 4 years ago, done for constipation. patient on baby asa daily, no NSAIDs; no fmhx of GI malignancy or IBD. Review of Systems PHQ Score Initial Depression Screen Score: 0 ROS - Provider Constitutional: no fever, no sweats, no weight loss. Eyes: no glasses, no blurred vision, no visual loss. ENMT: no dentures, no hoarseness, no swallowing difficulties, no hearing loss, no ear infection(s), no nose bleeds. Cardiovascular: normal blood pressure, no chest pain, regular heartbeat, no heart murmur. Respiratory: no shortness of breath, no cough, no asthma, no wheezing. Gastrointestinal: no nausea, no vomiting, no diarrhea, mdoerate constipation, no blood in stool, no change in bowel habits, mild abdominal pain, no hepatitis. Genitourinary: no kidney stones, no urine infection, no dysuria. Musculoskeletal: no pain, no weakness. Skin: no changing moles, no rash, no skin lumps. Neurologic: no seizures, no epilepsy, no headache. Psychiatric: no emotional or psychiatric problem. Heme/Lymph: no bleeding problems, no anemia, no blood clots, no transfusions. Allergy/Immunologic: no swollen lymph nodes/glands, no IV drug abuse. Other: Additional ROS info: Except as noted in the above Review of Systems and in the History of Present Illness, all other systems have been reviewed and are negative or noncontributory. Physical Exam Vitals & Measurements T: 36.5 ?C (Tympanic) HR: 76(Peripheral) RR: 16 BP: 126/80 HT: 167.6 cm HT: 167.64 cm WT: 93.9 kg WT: 93.9 kg BMI: 33.41 HEENT: normal conjunctiva, sclera clear, no scleral icterus, EOM intact, PERRLA. oral mucosa moist without lesions Neck: trachea midline , no mass, symmetric, no thyromegaly or nodules. no adenopathy Respiratory: lungs CTA, respirations non labored. Cardiovascular: regular rate and rhythm, no murmur, , no pedal edema or varicosities. Gastrointestinal: obese, soft, non distended, no tenderness, no masses, no palpable hernias, diastasis recti yes,well-healed abdominal incisions; no hepatosplenomegaly. normal bs Lymphatic: no cervical adenopathy, no axillary adenopathy, Musculoskeletal: normalgait, digits and nails without infection, nodes, cyanosis, clubbing. Skin: no rashes, no lesions, no ulcers, no subcutaneous nodules, induration. Psychiatric/Neuro: oriented to time, place, person, judgement normal, affect appropriate for age, insight intact, no focal deficits. Tests: labs reviewed, x-rays reviewed, review of old records completed, Assessment/Plan 1. Chronic constipation (K59.09: Other constipation) recommend avoiding stimulant laxatives; high fiber diet, 25-30 gms daily; daily fiber supplement; Miralax daily; hydration, daily exercise; if no improvement, may require further evaluation; follow up as needed, call with problems/questions. 2. Abdominal pain, left lower quadrant (R10.32: Left lower quadrant pain) see # 1 3. BMI 33.0-33.9,adult (Z68.33: Body mass index (BMI) 33.0-33.9, adult) recommend diet and exercise Follow-up No qualifying data available Problem List/Past Medical History Ongoing Abdominal pain, left lower quadrant BMI 33.0-33.9,adult Chronic constipation HTN (hypertension) Historical No qualifying data Procedure/Surgical History MIGUEL BSO - Total abdominal hysterectomy and bilateral salpingo-oophorectomy (03/03/2004), History of lumbar spine surgery. Medications aspirin 81 mg Chew Tab, 81 mg= 1 tab(s), Chewed, Daily Avapro 150 mg Tab, 150 mg= 1 tab(s), Oral, Daily meclizine 25 mg Tab, 25 mg= 1 tab(s), Oral, BID, PRN Allergies No Known Allergies No Known Medication Allergies Social History Alcohol - Denies Alcohol Use, 11/12/2019 Substance Abuse - Denies Substance Abuse, 11/12/2019 Tobacco Never (less than 100 in lifetime) Tobacco Use:., 11/12/2019 Family History Diabetes mellitus type 2: Mother and Brother. Hypertension: Mother. Normal [facility] Comment on above: Result Comment: Elec tronically Signed By: ALY ELIAS, Carl Glaser\Date and Time Signed: 11/22/19 16:04 EDT Facesheeton 11-15-2019 Facesheet [id number] .00CD:127 Normal [facility] Ambulatory Clinical Summaryo n 11-12-2019 Ambulatory Clinical Summary {[id number] Normal [facility] ED Note-Physicianon 11-11-19 ED Note-Physician [id number] .00CD:127 Normal [facility] RAD - CT Reporton 11-11-2019 RAD - CT Report [id number] .00CD:127 Normal [facility] MAGR Preoperative Recordon 0 08-04-2018 MAGR Preoperative Record MAGR Pre-Op Record Summary Primary Physician: Madan Leal DO Finalized Date/Time: 08/04/18 09:26:06 Pt. Name: NAHEED CHIQUITAYUE Devine./Sex: 1955 FEMALE Med Rec #: [id number] Physician: Madan Leal DO Financial #: [id number] Pt. Type: D Room/Bed: [facility] Admit/Disch: 07/22/18 11:48:00 - 07/22/18 17:40:00 Institution: Pre-Op Case Times MAGR Pre-Care Text: Patient will be optimally prepared for surgery. Patient is free from s/s of injury. Provide information to patient/family related to plan of care. Verify patient allergies. Confirm identity and verify consent before the operative or invasive procedure. Entry 1 Patient Arrival Time 07/22/18 12:00:00 Preop Departure 07/22/18 14:50:00 Last Modified By: Halley Hinkle RN 08/04/18 09:26:00 Post-Care Text: Patient is prepared mentally and physically and is ready for surgery. The patient remains free from s/s of injury. Patient/family express understanding of plan of care and participate in decisions affecting his or her perioperrative plan of care. Allergies documented appropriately. Patient identifiers and consent correct. General Comments: Denies chest pain, shortness of breath or illnessess. Denies pacemaker/defib. Denies sleep apnea. Finalized By: Halley Hinkle RN Document Signatures Signed By: Halley Hinkle RN 08/04/18 09:26 [facility] Coding Summaryon 07-29-2018 Coding Summary CODING DATE: 07/29/2018 [facility] STATUS: Home PAYOR: Medicare [facility] APC DESCRIPTION 5114 Level 4 Musculoskeletal Procedures ADMIT DX: REASON FOR VISIT DX: M80.08XA Age-related osteoporosis with current pathological fracture, vertebra(e), initial encounter for fracture FINAL DX: PRINCIPAL: M80.08XA Age-related osteoporosis with current pathological fracture, vertebra(e), initial encounter for fracture SECONDARY: S22.080A Wedge compression fracture of T11-T12 vertebra, initial encounter for closed fracture PYMT PROC APC STAT DESCRIPTION DOCTOR NAME DATE 5113 J1 Percutaneous vertebral Madan Leal And 07/22/2018 augmentation, including cavity creation (fracture reduction and bone biopsy included when performed) using mechanical device (eg, kyphoplasty), 1 vertebral body, unilateral or bilateral cannulation, inclusive of all imaging guidance NOTE: The code number assigned matches the documented diagnosis and / or procedure in the patient's chart. However, the narrative phrase printed from the coding software may appear abbreviated, or result in slightly different terminology. Coded By: Paige Fernandes Date Saved: 07/29/2018 07:14 am [facility] Consent Formson 07-24-2018 Consent Forms [id number]. [facility]24 History and Physical [id number]. [facility] Outside Recordson 07-24-2018 Outside Records [id number]. [facility] Provider Orderson 07-24-2018 Protein mass conc [id number]. 00OTGTIFF [facility] MAGR Postoperative Recordon 07-23-2018 MAGR Postoperative Record MAGR Phase II Record Summary Primary Physician: Madan Leal DO Finalized Date/Time: 07/23/18 10:35:15 Pt. Name: CHIQUITA FARFAN /Sex: 1955 FEMALE Med Rec #: [id number] Physician: Madan Leal DO Financial #: [id number] Pt. Type: D Room/Bed: [facility] Admit/Disch: 07/22/18 11:48:00 - 07/22/18 17:40:00 Institution: Phase II Case Times MAGR Pre-Care Text: Patient is free from s/s of injury. Patient remains free from compromised physical state related to surgery or anesthesia. Patient comfort maintained. Patient/family verbalize understanding of discharge instructions. Entry 1 In PACU II 07/22/18 16:00:00 Discharge from PACU 07/22/18 17:40:00 II Last Modified By: Sharmila Grover RN 07/23/18 10:35:05 Post-Care Text: The patient remains free from s/s of injury. Patient's vital signs stable, circulation maintained, return to preop mental and physical status, opsite/dressing intact, minimal or absent nausea and vomiting, tolerates po intake. Patient verbalizes adequate pain control. Patient/family express understanding of discharge instructions. General Comments: CARE PER [facility] Finalized By: Sharmila Grover RN Document Signatures Signed By: Sharmila Grover RN 07/23/18 10:35 [facility] Anesthesia Noteon 07-22-2018 Anesthesia Note Patient: CHIQUITA FARFAN Age: 63 years Sex: FEMALE : [birth year] Associated Diagnoses: None Author: Vinny Eli MD Preoperative Information Anesthesia history: Patient history: No difficult intubation, No malignant hyperthermia. Family history: No malignant hyperthermia. Review of Systems Respiratory: No shortness of breath, No apnea. Cardiovascular: recent chest pain anxiety related - Stress test negative, EF 70%, No chest pain. Gastrointestinal: No heartburn. Health Status Allergies: Allergic Reactions (All) No known allergies Current medications: Home Medications (5) Active aspirin 81 mg oral tablet 81 mg = 1 tab(s), PO, Daily Avapro 150 mg oral tablet 150 mg = 1 tab(s), PO, Daily hyoscyamine 0.125 mg oral tablet 0.125 mg = 1 tab(s), PRN, PO, q6hr nabumetone 500 mg oral tablet 500 mg = 1 tab(s), PO, BID nitroglycerin 0.4 mg sublingual tablet 0.4 mg = 1 tab(s), PRN, SL, q5min Problem list (past medical history): All Problems Hypertension / SNOMED CT [id number] / Confirmed Histories Family History: No family history items have been selected or recorded. Procedure history: Hysterectomy ([id number]). Social History Alcohol Assessment Use: Past. Tobacco Assessment Never (less than 100 in lifetime) Tobacco Use:. Substance Abuse Assessment Substance use: Never. . Physical Examination VS/Measurements Vital Signs (last 24 hrs) Last Charted Heart Rate Peripheral 92 bpm (JULY 22 12:06) Resp Rate 18 br/min (JULY 22 12:) SBP H 170mmHg (JULY 22:21) DBP H 98mmHg (JULY 22:21) SpO2 99 % (JULY 22 12:06) Weight 92.900 kg (JULY 22 12:06) Height 166.37 cm (JULY 22 12:) General: Alert and oriented, No acute distress. Airway: Mallampati classification: II (soft palate, fauces, uvula visible). Mouth: Within normal limits. Respiratory: Respirations are non-labored. Review / Management Laboratory Results ECG interpretation: Normal sinus rhythm. Plan [place] [employer]#( A) physical status classification: Class II. Anesthetic Preoperative Plan Anesthesia: Monitored anesthesia care. Anesthetic plan, risks, benefits, and alternatives discussed with the patient and/or family. Patient verbalized understanding. Family/Guardian present. Informed consent was given. Consent was signed by the patient. [Electronically Signed on: 07/22/2018 14:59 EDT] Vinny Eli MD [Verified on: 07/22/2018 14:59 EDT] Vinny Eli MD [facility] Education Noteon 07-22-[address] FARRELL POST OPERATIVE KYPHOPLASTY OR LUMBAR SPINE SURGERY INSTRUCTIONS SURGEONS WRITTEN INSTRUTCTIONS: -Avoid strenuous lifting or repetitive bending for 6 weeks after surgery -You may shower in 1 day. Remove the outer dressing before showering. If you have steri strips in place, DO NOT remove the steri-strips. DO NOT submerge the wound under water such as sitting in a bathtub, hot tub, or going swimming -Cover the wound with a 4x4 gauze or large Band-Aid until the dressing or Band-Aid are clean and dry for 2 days. You can then leave it open to air -If you have any questions or concerns, please call the office at [phone] -Follow up as scheduled [facility] Inpatient Patient Summaryon 07-22-2018 [place] [address] Patient Discharge Instructions Name: CHIQUITA FARFAN : [birth year] Patient Address: [address] [place] [address] Primary Care Provider: Name: JEFFERY HERMAN After you are discharged if you find you have any questions, please, call [phone] ext [phone] to speak to a nurse. Discharge Diagnosis: Osteoporotic vertebral collapse; T12 compression fracture If you received any narcotics, sedation, or any other medication that causes drowsiness for the next 24 hours, unless otherwise directed: ? Do not drive a car. ? Do not operate machinery such as power tools, lawn mowers, drills, sewing machines, or stoves ? Avoid alcoholic beverages and drugs for allergies, nerves, or sleep ? Do not make important personal or business decisions or sign any legal documents [facility] would like to thank you for allowing us to assist you with your healthcare needs. The following includes patient education materials and information regarding your injury/illness. CHIQUITA FARFAN has been given the following list of follow-up instructions, prescriptions, and patient education materials: Follow-up Instructions With: Address: When: Madan Leal [address] [place] [address], [address] [place] [address] Business (2) In 13 days 08/04/18 With: Address: When: JEFFERY HERMAN [address] [place] [address], [facility] [place], [place] [phone] Business (1) Medications During the course of your visit, your medication list was updated with the most current information. The details of those changes are reflected below: Medications to Continue That Have Not Changed Other Medications aspirin (aspirin 81 mg oral tablet) 1 tab(s) Oral every day. hyoscyamine (hyoscyamine 0.125 mg oral tablet) 1 tab(s) Oral Every 6 hours as needed pain. irbesartan (Avapro 150 mg oral tablet) 1 tab(s) Oral every day. nabumetone (nabumetone 500 mg oral tablet) 1 tab(s) Oral 2 times a day. nitroglycerin (nitroglycerin 0.4 mg sublingual tablet) 1 tab(s) Sublingual every 5 minutes as needed for chest pain. It is important to always keep an active list of medications available so that you can share with other providers and manage your medications appropriately. As an additional courtesy, we are also providing you with your final active medications list that you can keep with you. aspirin (aspirin 81 mg oral tablet) 1 tab(s) Oral every day. hyoscyamine (hyoscyamine 0.125 mg oral tablet) 1 tab(s) Oral Every 6 hours as needed pain. irbesartan (Avapro 150 mg oral tablet) 1 tab(s) Oral every day. nabumetone (nabumetone 500 mg oral tablet) 1 tab(s) Oral 2 times a day. nitroglycerin (nitroglycerin 0.4 mg sublingual tablet) 1 tab(s) Sublingual every 5 minutes as needed for chest pain. Take only the medications listed above. Contact your doctor prior to taking any medications not on this list. Medication leaflets, if any, will display below Diet & Activity Patient Activity Level: Patient Diet: Regular Patient Activity Restrictions: Patient education materials, if any, will display below DR. FARRELL POST OPERATIVE KYPHOPLASTY OR LUMBAR SPINE SURGERY INSTRUCTIONS SURGEONS WRITTEN INSTRUTCTIONS: -Avoid strenuous lifting or repetitive bending for 6 weeks after surgery -You may shower in 1 day. Remove the outer dressing before showering. If you have steri strips in place, DO NOT remove the steri-strips. DO NOT submerge the wound under water such as sitting in a bathtub, hot tub, or going swimming -Cover the wound with a 4x4 gauze or large Band-Aid until the dressing or Band-Aid are clean and dry for 2 days. You can then leave it open to air -If you have any questions or concerns, please call the office at [phone] -Follow up as scheduled Viruses or Bacteria What?s got you sick? Antibiotics only treat bacterial infections. Viral illnesses cannot be treated with antibiotics. When an antibiotic is not prescribed, ask your healthcare professional for tips on how to relieve symptoms and feel better. Usual Cause Illness Viruses Bacteria Antibiotic Needed Cold/Runny Nose NO Bronchitis/Chest Cold (in otherwise healthy children and adults) NO Whooping Cough Yes Flu NO Strep Throat Yes Sore Throat (except strep) NO Fluid in the middle ear (otitis media with effusion) NO Urinary Tract Infection Yes Antibiotics Aren?t Always the Answer www.cdc.gov/getsmart GET SMART Know When Antibiotics Work U.S. Department of Health and Human Services Centers for Disease Control and Prevention November 2013 [facility] MAGR Intraoperative Recordon 07-22-2018 MAGR Intraoperative Record MAGR Intra-Op Record Summary Primary Physician: Madan Leal DO Finalized Date/Time: 07/22/18 16:05:48 Pt. Name: CHIQUITA FARFAN/Sex: 1955 FEMALE Med Rec #: [id number] Physician: Madan Leal DO Financial #: [id number] Pt. Type: D Room/Bed: [facility]/1 Admit/Disch: 07/22/18 11:48:00 - Institution: Case Times MAGR Entry 1 Patient In Room Time 07/22/18 15:00:00 Out Room Time 07/22/18 15:50:00 Anesthesia Start Time 07/22/18 15:00:00 Stop Time 07/22/18 16:00:00 Surgery Start Time 07/22/18 15:23:00 Stop Time 07/22/18 15:46:00 Last Modified By: Sharmila Grover RN 07/22/18 16:05:29 Case Attendance MAGR Entry 1 Entry 2 Entry 3 Case Attendee Madan Leal Satya S MD Long, Barbara RN Andrew DO Role Performed Surgeon - Primary Archery Equipment Repairer Archery Equipment Repairer Time In 07/22/18 15:00:00 07/22/18 15:00:00 07/22/18 15:00:00 Time Out 07/22/18 15:50:00 07/22/18 15:50:00 07/22/18 15:50:00 Procedure Kyphoplasty Kyphoplasty Kyphoplasty Last Modified By: Sharmila Grover RN, Barbara RN Long, Barbara RN 07/22/18 15:50:46 07/22/18 15:50:46 07/22/18 15:50:46 Entry 4 Entry 5 Entry 6 Case Attendee Georgia Nair Linda M Calmes, Luke T Role Performed Scrub Personnel Archery Equipment Repairer Jewelry Casting Model Maker Time In 07/22/18 15:00:00 07/22/18 15:00:00 07/22/18 15:00:00 Time Out 07/22/18 15:50:00 07/22/18 15:50:00 07/22/18 15:50:00 Procedure Kyphoplasty Kyphoplasty Kyphoplasty Last Modified By: Sharmila Grover RN, Barbara RN Long, Barbara RN 07/22/18 15:50:46 07/22/18 15:50:46 07/22/18 15:50:46 Entry 7 Entry 8 Case Attendee Candelaria Hall Jenna Role Performed Jewelry Casting Model Maker Jewelry Casting Model Maker Time In 07/22/18 15:00:00 07/22/18 15:00:00 Time Out 07/22/18 15:50:00 07/22/18 15:50:00 Procedure Kyphoplasty Kyphoplasty Last Modified By: Sharmila Grover RN, Barbara RN 07/22/18 15:50:46 07/22/18 15:50:46 Surgical Procedures MAGR Pre-Care Text: A.20 Verifies operative procedure, surgical site, and laterality Im.150 Develops individualized plan of care Entry 1 Procedure Kyphoplasty Primary Procedure Yes Primary Surgeon Madan Leal Surgeon Comment KYPHOPLASTY T12 Barak DO Start 07/22/18 15:23:00 Stop 07/22/18 15:46:00 Anesthesia Type MAC Surgical Service Orthopedics Wound Class Clean Last Modified By: Sharmila Grover RN 07/22/18 15:50:42 Post-Care Text: O.730 The patient's care is consistent with the individualized perioperative plan of care General Case Data MAGR Pre-Care Text: A.350.1 Classifies surgical wound Entry 1 Case Information OR MAGR OR 05 Case Level Level 5 Wound Class Clean Specialty Orthopedics ASA Class 2 Diagnosis Preop Diagnosis compression fx T12 Postop Same As Preop Yes Postop Diagnosis compression fx T12 Last Modified By: Sharmila Grover RN 07/22/18 15:25:50 Post-Care Text: O.760 Patient receives consistent and comparable care regardless of the setting Time Out MAGR Entry 1 Time out date/time 07/22/18 15:24:00 All team members Yes have introduced themselves by name and role Surgeon, Yes Surgeon reviews Yes anesthesia, nurse critical or confirm patient, unexpected steps, site, procedure operative duration, anticipated blood loss Anesthesia team Yes Nursing team Yes reviews any reviews sterility patient-specific (including concerns indicator results) and equipment issues/concerns Antibiotic Antibiotic Yes Administration Time 14:55 prophylaxis given within the last 60 minutes Is essential N/A imaging displayed? Last Modified By: Sharmila Grover RN 07/22/18 15:28:35 Patient Positioning MAGR Pre-Care Text: A.280 Identifies baseline musculoskeletal status Im.40 Positions the patient Im.80 Applies safety devices Entry 1 Procedure Kyphoplasty Body Position Prone Left Arm Position Resting at Side Right Arm Position Resting at Side Left Leg Position Extended Right Leg Position Extended Feet Uncrossed? Yes Press Points Checked Yes Positioning Device Pillow, Safety Strap Outcome Met (O.80) Yes Last Modified By: Sharmila Grover RN 07/22/18 15:26:02 Post-Care Text: E.290 Evaluates musculoskeletal status O.80 Patient is free from signs and symptoms of injury related to positioning Skin Prep MAGR Pre-Care Text: A.30 Verifies allergies Im.270 Performs skin preparation Im.270.1 Implements protective measures to prevent skin and tissue injury due to chemical sources Entry 1 Skin Prep Syntegrity Prep Agents (Im.270) Chlorhexidine Gluconate Prep By Fadumo Reis Prep Area (Im.270) Back Skin Prep Agent Dry Yes Without Pooling Hair Removal Syntegrity Hair Removal Methods No hair removal performed Outcome Met (O.100) Yes Last Modified By: Sharmila Grover RN 07/22/18 15:26:30 Post-Care Text: E.10 Evaluates for signs and symptoms of physical injury to skin and tissue O.100 Patient is free from signs and symptoms of chemical injury Medication Administration MAGR Pre-Care Text: A.210 Identifies physiological status Im.220 Administers prescribed medications Entry 1 Entry 2 Time Administered 07/22/18 15:34:00 07/22/18 15:38:00 Medication LIDOCAINE 1% OMNIPAQUE DYE Route of Admin SubQ injectable Dose Volume 20 mL 50 mL By Madan Leal James Andrew DO Andrew DO Outcome Met (O.130) Yes Yes Last Modified By: Sharmila Grover RN, Barbara RN 07/22/18 15:39:20 07/22/18 15:39:20 Post-Care Text: E.20 Evaluates response to medications O.130 Patient receives appropriately administered medication(s) X-Rays and Images MAGR Pre-Care Text: A.240 Assesses baseline skin condition A.240.1 Assesses history of previous radiation exposure Im.110 Implements protective measures to prevent injury due to radiation sources Entry 1 Site Back mid X-Ray Type C-Arm Protective Devices Yes Outcome Met (O.110) Yes Used Last Modified By: Sharmila Grover RN 07/22/18 15:26:41 Post-Care Text: E.10 Evaluates for signs and symptoms of physical injury to skin and tissue O.110 Patient is free from signs and symptoms of radiation injury Implant Log MAGR Pre-Care Text: A.20 Verifies operative procedure, surgical site, and laterality Im.350 Records implants inserted during the operative or invasive procedure Entry 1 Procedure Kyphoplasty Implant Action Implant Implant Information Description [employer] RADIOPAQUE Implant/Explant 07/22/18 15:40:00 BONE CEMENT Date/Time Implanted/Explanted Madan Leal Systems Developer [employer] By: Barak JEROME Lot Number [id number] Expiration Date 04/30/20 Implant Usage Data Site Back Quantity 1 Paster Supervisor Sterility Outcome Met (O.30) Yes Last Modified By: Sharmila Grover RN 07/22/18 15:41:09 Post-Care Text: E.30 Evaluates verification process for correct patient, site, side and level surgery O.30 Patient's procedure is performed on the correct site, side, and level Dressing/Packing MAGR Pre-Care Text: A.350 Assesses susceptibility for infection Im.290 Administer care to wound sites Entry 1 Skin Prep Agent Yes Site Back mid Removed Prior to Dressing? Dressing Item Details Dressing Item ABD Tape (Im.290) Transparent (Im.290) Outcome Met Yes Last Modified By: Sharmila Grover RN 07/22/18 15:29:03 Post-Care Text: E.200 Evaluates progress of wound healing O.200 Patient's wound perfusion is consistent with or improved from baseline levels Departure from OR MAGR Entry 1 Present on Depart Oxygen Via Stretcher Post-op Destination PACU II Skin DFO Condition Dry Description Condition Warm Description Condition Intact Description Report Given To Kateryna Phillip RN Airway Maintenance Patient Status Stable Oxygen in Use? Yes Airway Device Simple mask Flow Rate 10 L/min Last Modified By: Sharmila Grover RN 07/22/18 16:05:47 Case Comments Finalized By: Sharmila Grover RN Document Signatures Signed By: Sharmila Grover RN 07/22/18 16:05 [facility] Operative Report - Surgeon/P carlotta 07-22-2018 Operative Report - Surgeon/Physician Procedure: Kyphoplasty T12 cavity creation with the balloon and then cement augmentation Pre Op Diagnosis: Osteoporotic compression fracture M80.08XA Compression fracture T12 Post Op Dianosis: Osteoporotic compression fracture M80.08XA Compression fracture T12 Surgeon: Dr. Silvina Leal DO Anesthesia: Conscious sedation with local Indication for Surgery: Intractable back pain with failure of conservative treatment. Findings: Compression of the T12 vertebra with approximately 40% collapse, comminuted fracture pattern Blood Loss: Scant Specimen: None Procedure Summary: Patient was brought to the operative suite and carefully positioned prone on the radiolucent table. I personally sit up unsupervised biplanar fluoroscopy. The fractured level was clearly identified with biplanar fluoroscopy, and counting twice up from the sacrum verifying appropriate level. The back was then sterilely prepped and draped in usual fashion and at this point a timeout was taken operating room. Radiodense marker was held over the spine and AP images were obtained to localize initial entry point for pedicle access. Local anesthetic was then injected subcutaneously at the entry points. Next a spinal needle was then inserted down to the pedicle on the right side and good position was verified with both AP and lateral fluoroscopic images. Anesthetic was injected on the periosteum through the spinal needle. Next a stab wound was made and the trocar was advanced down to the pedicle. The trocar was carefully advanced through the pedicle verifying proper trajectory with multiple views of the C-arm. The vertebral body was accessed. Next a drill was used to create a path for the balloon. The procedure was repeated on the opposite side. The balloons were then inflated sequentially and gradually alternating sides. Meanwhile the cement was mixed on the back table. One of the balloons was removed and cement was injected. Next the opposite balloon was removed and additional cement was injected. The cement was allowed to harden and the trochars were carefully removed. I made sure there were no cemented tails extending into the soft tissues. The cement stayed contained within the vertebral body. A total of 6 cc of cement was injected. The back was cleansed with a moist sponge. The wounds were closed with Mastisol and Steri-Strips. Sterile dressings were applied. The patient was carefully log rolled off the table and then transported to recovery in stable condition. Complications: None [Electronically Signed on: 07/22/2018 16:01 EDT] Madan Leal DO [Verified on: 07/22/2018 16:01 EDT] Madan Leal DO [facility] XR Fluoro Surgeryon 07-23-19 19 XR Fluoro Surgery EXAM: XR Spine Thoracic 2 Views, XR Fluoro Surgery CLINICAL DATA: Kyphoplasty intraop or #5. Vertebral augmentation. COMPARISON: None. FINDINGS: 6 spot film views in the AP and lateral projections of what appears be the T12 vertebral body were obtained, demonstrating moderate height loss of the mid and anterior aspects of the vertebral body with subsequent images demonstrating placement of stabilizing kyphoplasty cement within the vertebral body, final images demonstrate the stabilizing cement to be unremarkably positioned. Total fluoroscopy time for the procedure was 99.8 seconds. IMPRESSION: Unremarkable vertebral augmentation appearance of what appears to be the T12 vertebral body, this can be correlated with history as to the exact level. Fluoroscopy was utilized by the surgeon during this procedure. Final Dictated by: Alli Dunaway MD Dictated DT/TM: 07/23/18 7:00 Signed (Electronic Signature): Alli Dunaway MD 07/23/18 7:26 am [facility]ologist[facility] 2 Viewson 07-22-2018 XR Spine Thoracic 2 Views EXAM: XR Spine Thoracic 2 Views, XR Fluoro Surgery CLINICAL DATA: Kyphoplasty intraop or #5. Vertebral augmentation. COMPARISON: None. FINDINGS: 6 spot film views in the AP and lateral projections of what appears be the T12 vertebral body were obtained, demonstrating moderate height loss of the mid and anterior aspects of the vertebral body with subsequent images demonstrating placement of stabilizing kyphoplasty cement within the vertebral body, final images demonstrate the stabilizing cement to be unremarkably positioned. Total fluoroscopy time for the procedure was 99.8 seconds. IMPRESSION: Unremarkable vertebral augmentation appearance of what appears to be the T12 vertebral body, this can be correlated with history as to the exact level. Fluoroscopy was utilized by the surgeon during this procedure. Final Dictated by: Alli Dunaway MD Dictated DT/TM: 07/23/18 7:00 Signed (Electronic Signature): Alli Dunaway MD 07/23/18 7:26 am [facility]ologist[facility] C[facility] Summaryon 07-20-2018 Coding Summary CODING DATE: 07/20/2018 [facility] STATUS: Home PAYOR: Medicare MC APC DESCRIPTION 5733 Level 3 Minor Procedures ADMIT DX: REASON FOR VISIT DX: Z53.09 Procedure and treatment not carried out because of other contraindication FINAL DX: PRINCIPAL: R07.9 Chest pain, unspecified SECONDARY: Z53.09 Procedure and treatment not carried out because of other contraindication R06.02 Shortness of breath I10 Essential (primary) hypertension PYMT PROC APC STAT DESCRIPTION DOCTOR NAME DATE NOTE: The code number assigned matches the documented diagnosis and / or procedure in the patient's chart. However, the narrative phrase printed from the coding software may appear abbreviated, or result in slightly different terminology. Coded By: Kimberly Wilson Date Saved: 06/30/2018 01:44 pm [facility] Coding Summaryon 06-30-2018 Coding Summary CODING DATE: 06/30/2018 [facility] STATUS: Home PAYOR: Medicare MC APC DESCRIPTION 5733 Level 3 Minor Procedures ADMIT DX: REASON FOR VISIT DX: Z53.09 Procedure and treatment not carried out because of other contraindication FINAL DX: PRINCIPAL: Z53.09 Procedure and treatment not carried out because of other contraindication SECONDARY: R07.9 Chest pain, unspecified R06.02 Shortness of breath I10 Essential (primary) hypertension PYMT PROC APC STAT DESCRIPTION DOCTOR NAME DATE NOTE: The code number assigned matches the documented diagnosis and / or procedure in the patient's chart. However, the narrative phrase printed from the coding software may appear abbreviated, or result in slightly different terminology. Coded By: Kimberly Wilson Date Saved: 06/30/2018 01:44 pm [facility] Anesthesia Noteon 06-26-2018 Anesthesia Note Patient: CHIQUITA FARFAN Age: 63 years Sex: FEMALE : [birth year] Associated Diagnoses: None Author: Benjamin Fajardo DO Preoperative Information Anesthesia history: Patient history: No difficult intubation, No malignant hyperthermia. Family history: No malignant hyperthermia, No prior anesthesia problems. Review of Systems Constitutional Eye Ear/Nose/Mouth/Throat Respiratory: Shortness of breath. Cardiovascular: Chest pain: Pt reports chest pain 3-4 times in the past 9 months which resolved with NTG. She is not active. She states that she gets SOB climbing one or 2 stairs and needs to stop and rest to recover. Her Family Physician prescribed the NTG and refered her to a cycle manager for stress testing in 08/2017. She did not go secondary to insurance issues. . Health Status Allergies: Allergic Reactions (All) No known allergies Current medications: Home Medications (5) Active aspirin 81 mg oral tablet 81 mg = 1 tab(s), PO, Daily Avapro 150 mg oral tablet 150 mg = 1 tab(s), PO, Daily hyoscyamine 0.125 mg oral tablet 0.125 mg = 1 tab(s), PRN, PO, q6hr nabumetone 500 mg oral tablet 500 mg = 1 tab(s), PO, BID nitroglycerin 0.4 mg sublingual tablet 0.4 mg = 1 tab(s), PRN, SL, q5min Problem list (past medical history): All Problems Hypertension / SNOMED CT [id number] / Confirmed Histories Family History: No family history items have been selected or recorded. Procedure history: Hysterectomy ([id number]). Social History Alcohol Assessment Use: Past. Tobacco Assessment Never (less than 100 in lifetime) Tobacco Use:. Substance Abuse Assessment Substance use: Never. . Social & Psychosocial Habits Alcohol 06/26/2018 Alcohol Use: Past Substance Abuse 06/26/2018 Substance use: Never Tobacco 06/26/2018 Smoking tobacco use: Never (less than 100 in l . Physical Examination VS/Measurements Measurements from flowsheet : Measurements 06/26/18 10:34 EDT Height 166.370 cm Height/Length Dosing 166.370 cm Weight 94.700 kg Weight Dosing 94.700 kg Body Mass Index 34.210 kg/m2 , Vital Signs (last 24 hrs) Last Charted Heart Rate Peripheral 86 bpm (JUN 26 10:34) Resp Rate 18 br/min (JUN 26:34) SBP H 161mmHg (JUN 26 10:34) DBP 90 mmHg (JUN 26:34) SpO2 96 % (JUN 26:34) Weight 94.700 kg (JUN 26:34) Height 166.37 cm (JUN 26:34) Review / Management Laboratory Results Plan Anesthetic Preoperative Plan Patient verbalized understanding. I discussed with the patient the need for a cardiac evaluation before proceeding with the surgery. If the surgery would be required sooner on an urgent basis she would need to have the surgery done at a facility with a company laborer and an control panel operator crude unit. . [Electronically Signed on: 06/26/2018 12:11 EDT] Benjamin Fajardo DO [Verified on: 06/26/2018 12:11 EDT] Benjamin Fajardo DO [facility] Progress Note - Nurseon 06-02 Protein mass conc Spoke with Duarte at Dr. Herman's office in regards to a cardiology consult that is needed for surgery clearance. Verbalized understanding. Duarte will let pt know once she gets her an appointment. [Electronically Signed on: 06/26/2018 13:30 EDT] Ruma Pérez RN [Verified on: 06/26/2018 13:30 EDT] Ruma Pérez RN [facility] Vital Signs Date Time Vital Sign Value Performing Clinician Karyna lobo 10-23-2023 15:38-0400 Body height 165.1 cm Guerda Carrillo DPM Work Phone: [facility] 10-23-2023 15:38-0400 Body mass index (BMI) [Ratio] 32.78 kg/m2 Guerda WILLIAMSONM Work Phone: [facility] 10-23-2023 15:38-0400 Body weight 89.36 kg Guerda WILLIAMSONM Work Phone: [facility] Healthcare Encounters Encounter Date Encounter Type Care Provider Facility Start: 11-11-2023 End: 11-11-2023 ambulatory CHRISTOPHER Jordan [facility] Start: 10-23-2023 End: 10-23-2023 Office outpatient visit 25 minutes Guerda WILLIAMSONM Work Phone: [facility] Comment on above: Plantar fasciitis, b ilateral (Primary Dx); Type II or unspecified type diabetes mellitus with neurological manifestations, not stated as uncontrolled(250.60) (CMS/FORMERLY [facility]); Gastrocnemius equinus of right lower extremity; Gastrocnemius equinus of left lower extremity Start: 10-23-2023 End: 10-23-2023 ambulatory GUERDA CARRILLO Not Available Start: 10-23-2023 End: 10-23-2023 Bamboo flowsheet Guerda Carrillo DPM Work Phone: [facility] Start: 10-23-2023 End: 10-23-2023 Bamboo flowsheet Guerda Carrillo DPM Work Phone: [facility] Start: 03-20-2022 End: 03-20-2022 ambulatory SADI ROSAS Facility:[facility] Start: 05-29-2021 End: 05-30-[address] JUVE OLSON Facility:[facility] Start: 08-08-2017 End: 08-09-2017 Ambulatory DEFAULT PHYSICIAN Facility:[facility] Plan of Treatment Date Care Activity Detail Author Start: 11-18-2023 End: 11-18-2023 Patient encounter procedure 11/18/2023 9:30 AM EDT Office Visit [facility] [address] [place] [phone] Guerda Carrillo, DPM [address] [place], [place] [phone] [facility] Start: 11-02-2023 Influenza vaccination Influenza Vacc ine (#1) [facility] Start: 10-23-2023 End: 10-23-2023 Patient encounter procedure 10/23/2023 3:30 PM EDT Office Visit [facility] [address] [place] [phone] Guerda Carrillo, DPM [address] [place], [place] [phone] Arrived [facility] Comment on above: Arrived Start: 2018 Pneumococcal Vaccine : 65+ Years (1 of 1 - PCV) Pneumococcal Vaccine: 65+ Years (1 of 1 - PCV) [facility] Start: 1993 Screening for malign ant neoplasm of breast Mammogram [facility] Start: 1955 Medicare Annual Well ness (AWV) Medicare Annual Wellness (AWV) [facility] Start: 1955 Screening for malign ant neoplasm of colon [facility] Payers Date Payer Category Payer Unknown 2020 Unknown [id number] 1961 Medicare [id number] 1955 Unknown [id number] 2.16.84 [id number] 1955 Unknown [id number] [id number] [id number] 1955 Unknown [id number] [id number] [id number] 1955 Unknown [id number] Social History Date Type Detail Facility Start: 10-23-2023 Tobacco smoking stat [facility] Never smoked tobacco [facility] Start: 10-23-2023 Alcoholic beverage intake Life time non-drinker (finding) [facility] Start: 10-23-2023 History of Social function [facility] Start: 10-23-2023 Tobacco use panel [facility] Start: 1955 Sex assigned at Not on file [facility] Tobacco smoking stat [facility] Tobacco smoking consumption unknown [facility] History of Present illness Narrative 10-23-2023 Guerda Carrillo DPM - 10/23/2023 3:30 PM EDT Note Date & Type Note Facility 10-23-2023 History of Presen t illness Narrative Images from the original note were not included. Subjective Patient ID: Chiquita Farfan is a 68 y.o. female who presents for DM Foot Care (Chiquita Farfan 68yo Patient presents for Diabetic Foot check, patient relates her heels burn. Sensation started 3 months. BS 136 A1C 6.1 Jacklyn Fowler 06/18/2023 SS ). HPI Patient presents complaining of burning in both of her heels. She is here for a diabetic foot exam. She has been diabetic since 03/2021 and states her sugars are well controlled. Her last hemoglobin A1c was 6.1 percent. She states she has had this issue in the past, she was seen for it here in 2021. The pain did resolve in approximately 2-3 months ago the burning in the heels returned. The pain is present all the time except when she is soaking her feet. She does have history of lower back issues. Review of Systems Medications Current Outpatient Medications: amLODIPine (Norvasc) 10 MG tablet, , Disp: , Rfl: cinnamon 500 MG capsule, as directed Orally, Disp: , Rfl: meloxicam (Mobic) 15 MG tablet, Take 1 tablet (15 mg) by mouth Daily for 21 days, Disp: 21 tablet, Rfl: 0 metFORMIN (Glucophage) 850 MG tablet, , Disp: , Rfl: rosuvastatin (Crestor) 10 MG tablet, , Disp: , Rfl: Allergies Patient has no known allergies. Past Surgical History Past Surgical History: Procedure Laterality Date HYSTERECTOMY IR KYPHOPLASTY LUMBAR 2019 T12 Family History No family history on file. Objective Physical Exam Cardiovascular: Comments: Pedal pulses: DP 2/4 bilateral, PT 2/4 bilateral. Skin temp is warm to warm. Varicosities: absent Hair growth: present Pulmonary: Effort: Pulmonary effort is normal. Musculoskeletal: General: No tenderness. Right lower leg: No edema. Left lower leg: No edema. Comments: JOINT RANGE OF MOTION:AJ dorsiflexion is limited with knee extended and improves with knee flexed. STJ ROM WNL. DEFORMITIES: none. PAIN: Pain at the insertion of the plantar fascia into the calcaneus b/l. Mild discomfort with palpation of the weight bearing surface of the calcaneus. Mild pain with medial to lateral compression of the heel. No pain in the peroneals, Achilles or Posterior tibial tendon. NO pain with palpation of the tarsal tunnel MUSCLE STRENGTH 5/5 for dorsiflexion, plantarflexion, inversion, eversion. Feet: Comments: Date of last diabetic foot exam: 10/23/2023 Skin: General: Skin is warm. Capillary Refill: Capillary refill takes 2 to 3 seconds. Findings: No bruising or erythema. Comments: SKIN FINDINGS: web spaces are clean/dry, no erythema or ecchymosis noted, texture, turgor, hair growth, within normal limits. HYPERKERATOSIS: none. NAIL PATHOLOGY: hallux nail nails are 4mm thick, yellow and brown, with crumbly subungal debris. Entire nail is fungal. Nails 5 b/l are dystrophic. Neurological: Mental Status: She is alert and oriented to person, place, and time. Comments: VIBRATORY:intact at IPJ b/l. SEMMES-FARRAH 5.07 MONOFILAMENTintact at 10/10 sites. NEUROLOGIC light touch (normal). burning is in heels. No burning in toes, no burning/tingling down back of legs. Negative Tinels Psychiatric: Mood and Affect: Mood normal. Behavior: Behavior normal. Assessment/Plan ICD-10-CM 1. Plantar fasciitis, bilateral M72.2 meloxicam (Mobic) 15 MG tablet 2. Type II or unspecified type diabetes mellitus with neurological manifestations, not stated as uncontrolled(250.60) (CMS/FORMERLY [facility]) E11.49 3. 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 Gastrocnemius equinus of left lower extremity M62.462 Reviewed findings of diabetic foot exam - intact sensation, good Peripheral circulation. I do not believe that the burning in her heels is peripheral neuropathy. We reviewed importance of maintaining good control of blood sugars. They are to get into a habit of looking at their feet or have someone look at them. They are to look for any signs of redness, blistering, cracking, swelling, drainage, open lesions etc. They are to refrain from going barefoot. Wear shoes at all times to help protect feet. Shoe gear should be inspected for any foreign objects. Discuss with patient the stress/inflammation/ pain cycle of plantar fasciitis. Discussed that we will keep nerve pathology as a possibility. If she shows no improvement with treatment of the plantar fasciitis, we will obtain Xrays and we may consider a nerve conduction velocity test. Stress the importance of good supportive tie shoes. Dispensed information on [employer] running to be fit and measured for shoes. Patient is unsure if she will do this due to the financial commitment. Advise no flip flops, slippers nor bare feet. Explain the anatomy of the plantar fascia and equinus. Demonstrate stretching exercises and give handout for the same. Also advise icing therapy. Patient tried Powerstep orthotics and will take them; they felt comfortable. Reviewed break in period. ERx Meloxicam 15mg. Potential S.E. cautioned. Activity discussed and to minimize irritation to the heel area. RTO 3-4 weeks. This note was created with the assistance of a speech recognition program. While intending to generate a timely document that accurately reflects the content of the visit, no guarantee can be provided that every grammatical or spelling mistake has been or will be identified or corrected. Thank you for your understanding. Guerda Carrillo DPM documented in this encounter [facility] Evaluation note Note Date & Type Note Facility Evaluation note Diagnosis Plantar fasciitis, bilateral- Primary Type II or unspecified type diabetes mellitus with neurological manifestations, not stated as uncontrolled(250.60) (CMS/HCC) Type II or unspecified type diabetes mellitus with neurological manifestations, not stated as uncontrolled Gastrocnemius equinus of right lower extremity Gastrocnemius equinus of left lower extremity documented in this encounter [facility] Summary Purpose Family History No Family History Records FoundNo Family History Records FoundNo Family History Records FoundNo Family History Records FoundNo Family History Records FoundNo Family History Records Found Advance Directives No Advanced Directives Records FoundNo Advanced Directives Records FoundNo Advanced Directives Records FoundNo Advanced Directives Records FoundNo Advanced Directives Records FoundNo Advanced Directives Records Found Hospital Course Note [facility]charge Summary PERSON INFORMATION Name CHIQUITA FARFAN Age 63 Years 51 Sex FEMALE Language Cuban PCP JEFFERY HERMAN Marital Status Single Med Service Ambulatory Surgery Acct# Arrival 07/22/18 11:48:00 Visit Reason surgery - KYPHOPLASTY T12 Acuity [facility] Address: [address] [place] [id number] Comment: PROVIDER INFORMATION VITALS INFORMATION Vital Sign Triage Latest Temp Oral Temp Temporal Temp Intravascular Temp Axillary Temp Rectal 02 Sat 99 % 98 % Respiratory Rate 18 br/min 16 br/min Peripheral Pulse Rate 92 bpm 76 bpm Apical Heart Rate Blood Pressure 171 mmHg / 95 mmHg 151 mmHg / 91 mmHg Comment: MEDICAL INFORMATION Allergy Info: Allergies No known allergies Prescriptions Given: Medication List: Continue These Medications: aspirin (aspirin 81 mg oral tablet) 81 mg Oral every day hyoscyamine (hyoscyamine 0.125 mg oral tablet) 0.125 mg Oral Every 6 hours as needed for pain irbesartan (Avapro (more content not included)... Note Patient: CHIQUITA FARFAN Age: 63 years Sex: FEMALE : 51 Associated Diagnoses: None Author: Vinny Eli MD Postoperative Information Post Operative Note: Post Anesthesia Care Unit. Health Status Allergies: Allergic Reactions (All) No known allergies Physical Examination General: No acute distress. Respiratory: Respirations are non-labored. Review / Management Condition: Stable. Assessment Anesthetic outcome No anesthetic complications noted. Adequate pain relief. No Complaint of nausea and vomiting. Plan Transfer/ Discharge: Patient can be discharged from PACU when criteria met. Condition stable. [Electronically Signed on: 07/22/2018 16:00 EDT] Vinny Eli MD [Verified on: 07/22/2018 16:00 EDT] Vinny Eli MD Procedure Findings Note Patient: CHIQUITA FARFAN Age: 63 years Sex: FEMALE : 51 Associated Diagnoses: None Author: Vinny Eli MD Postoperative Information Post Operative Note: Post Anesthesia Care Unit. Health Status Allergies: Allergic Reactions (All) No known allergies Physical Examination General: No acute distress. Respiratory: Respirations are non-labored. Review / Management Condition: Stable. Assessment Anesthetic outcome No anesthetic complications noted. Adequate pain relief. No Complaint of nausea and vomiting. Plan Transfer/ Discharge: Patient can be discharged from PACU when criteria met. Condition stable. [Electronically Signed on: 07/22/2018 16:00 EDT] Vinny Eli MD [Verified on: 07/22/2018 16:00 EDT] Vinny Eli MD Additional Source Comments INFORMATION SOURCE (unrecogn ized section and content) DATE CREATED AUTHOR 08/19/[address] [facility] DATE CREATED AUTHOR AUTHOR'S ORGANIZ ATION 08/09/2018 [facility] DATE CREATED AUTHOR AUTHOR'S ORGANIZ ATION 11/23/2019 [facility] DATE CREATED AUTHOR AUTHOR'S ORGANIZ ATION 03/21/2022 [facility] DATE CREATED AUTHOR AUTHOR'S ORGANIZ ATION 10/25/2023 [facility] EPIC DATE CREATED AUTHOR AUTHOR'S ORGANIZ ATION 11/13/2023 [facility] Reason for Visit (unrecogniz ed section and content) Reason Comments DM Foot Care Chiquita Farfan 68yo Patient presents for Diabetic Foot check, patient relates her heels burn. Sensation started 3 months. 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 This clinical summary was aggregated from multiple sources. Caution should be exercised in using it in the provision of clinical care. This summary normalizes information from multiple sources, and as a consequence, information in this document may materially change the coding, format and clinical context of patient data. In addition, data may be omitted in some cases. CLINICAL DECISIONS SHOULD BE BASED ON THE PRIMARY CLINICAL RECORDS. [facility] [employer] [facility] provides no warranty or guarantee of the accuracy or completeness of information in this document.
[2024-04-28 10:29] LABS: Hematocrit 36.5 % (36.0-48.0); Mean Corpuscular HGB Conc 32.9 g/dL (29.9-35.2); Mean Corpuscular Hemoglobin 29.4 pg (26.7-34.0); Mean Corpuscular Volume 89.5 fL (81.0-99.0); Mean Platelet Volume 10.6 fL (9.5-13.5); Platelet Count 251 10^3/uL (150-450); Red Blood Count 4.08 10^6/uL (4.20-5.40); Red Cell Distribution Width 12.4 % (11.0-15.0); White Blood Count 4.6 10^3/uL (4.0-11.0)
[2024-04-28 10:30] LABS: Basophils Percent Auto 0.9 % (0.2-2.0); Eosinophils Absolute Auto 0.1 10^3/uL (0.0-0.7); Eosinophils Percent Auto 2.2 % (0.9-7.0); Lymphocytes Absolute Auto 1.9 10^3/uL (1.2-3.8); Lymphocytes Percent Auto 42.2 % (20.5-60.0); Monocytes Absolute Auto 0.3 10^3/uL (0.3-0.8); Monocytes Percent Auto 6.1 % (1.7-12.0); Neutrophils Absolute Auto 2.2 10^3/uL (1.4-6.5); Neutrophils Percent Auto 48.6 % (43.0-75.0)
[2024-04-28 11:23] LABS: Estimated Average Glucose 146 mg/dL; Glycohemoglobin A1C 6.7 % (4.5-6.2)
[2024-04-28 12:39] LABS: Alanine Aminotransferase 28 U/L (14-59); Albumin Globulin Ratio 0.8; Albumin Level 3.9 g/dL (3.4-5.0); Alkaline Phosphatase 75 U/L (46-116); Anion Gap 15.5; Aspartate Amino Transferase 18 U/L (15-37); BUN Creatinine Ratio 15.5; Bilirubin Total 0.2 mg/dL (0.2-1.0); Calcium 9.6 mg/dL (8.5-10.1); Carbon Dioxide 25.7 mmol/L (21.0-32.0); Chloride 104 mmol/L (98-107); Chol HDL Ratio 2.4; Cholesterol 130 mg/dL (<=200); Estimated GFR (African America >60 (>=60 mL/min/1.73m^2); Estimated GFR (Non-African Ame 57 (>=60 mL/min/1.73m^2); Free T3 2.66 pg/mL (2.18-3.98); Globulin 4.7 g/dL; Glucose 138 mg/dL (74-106); HDL Cholesterol 54 mg/dL (40-60); LDL Cholesterol Calculated 64.8 mg/dL; Potassium 4.2 mmol/L (3.5-5.1); Sodium 141 mmol/L (136-145); Thyroid Stimulating Hormone 1.102 uIU/mL (0.358-3.740); Total Protein 8.6 g/dL (6.4-8.2); Triglycerides 56 mg/dL (<=150); VLDL CHOLESTEROL 11.2 mg/dL
== END 2024-04-28 10:04 | disposition home or self-care (01) ==
LOC: LAB 10:06
PROVIDERS: PCP Family Medicine; Visit Provider Family Medicine
DX: D64.9 Anemia, unspecified (principal); I10 Essential (primary) hypertension; E11.9 Type 2 diabetes mellitus without complications; I38 Endocarditis, valve unspecified; E78.00 Pure hypercholesterolemia, unspecified
CPT/HCPCS: 36415; 80053; 80061; 83036; 83540; 84436; 84443; 84481; 85025

== ENCOUNTER 2024-05-05 10:20 | Outpatient (OUT) | payer OTHER, SELFPAY ==
--- OUTSIDE RECORDS SUMMARY | 2024-05-05 10:44 | XMS_ITS | CCD ---
Author Organization [facility] Care Team Providers Care Talent Development Coordinator Name Role Phone PHYSICIAN, DEFAULT Unavailable Unavailable PHYSICIAN, DEFAULT Unavailable Unavailable SADI ROSAS Admitting Unavailable SADI ROSAS Attending Unavailable [facility] Primary Care Unavailable WEST, DR BENJAMIN Marshall [...] Care Provi shaji Shannan Garvey MD Unavailable [phone] Medications Current Medications Medication Drug Class(es) Dates [...] 24 ABSOLUTE BASOPHIL 0.0 X10E9/L Normal 0.0-0.2 [facility] Comment on above: Performed By: #### C BCA, CMP, TSHR #### [facility] ([id number]) [address] [place] [address] 14827 #### 3051-0 #### [facility] ([id number]) [address] [place] [address] ABSOLUTE NEUTROPHIL 3.3 X10E9/L Normal 1.5-6.6 [facility] Comment on above: Performed By: #### C BCA, CMP, TSHR #### [facility] ([id number]) [address] [place] [address] 38645 #### 3051-0 #### [facility] ([id number]) [address] [place] [address] Basophils/100 WBC (Bld) 0.7 % Normal [facility] Comment on above: Performed By: #### C BCA, CMP, TSHR #### [facility] ([id number]) [address] [place] [address] 50762 #### 3051-0 #### [facility] ([id number]) [address] [place] [address] Eosinophils (Bld) [#/Vol] 0.1 10*3/uL Normal 0.0-0.4 [facility] Comment on above: Performed By: #### C BCA, CMP, TSHR #### [facility] ([id number]) [address] [place] [address] 24626 #### 3051-0 #### [facility] ([id number]) [address] [place] [address] Eosinophils/100 WBC (Bld) 1.6 % Normal [facility] Comment on above: Performed By: #### C BCA, CMP, TSHR #### [facility] ([id number]) [address] [place] [address] 40024 #### 3051-0 #### [facility] ([id number]) [address] [place] [address] Erythrocyte distribution width (RBC) [Ratio] 13.3 % Normal 11.5-15.0 [facility] Comment on above: Performed By: #### C BCA, CMP, TSHR #### [facility] ([id number]) [address] [place] [address] 63072 #### 3051-0 #### [facility] ([id number]) [address] [place] [address] Hematocrit (Bld) [Volume fraction] 37.7 % Normal 35-47 [facility] Comment on above: Performed By: #### C BCA, CMP, TSHR #### [facility] ([id number]) [address] [place] [address] 42361 #### 3051-0 #### [facility] ([id number]) [address] [place] [address] Hemoglobin (Bld) [Mass/Vol] 12.7 g/dL Normal 11.7-15.5 [facility] Comment on above: Performed By: #### C BCA, CMP, TSHR #### [facility] ([id number]) [address] [place] [address] 95070 #### 3051-0 #### [facility] ([id number]) [address] [place] [address] Lymphocytes (Bld) [#/Vol] 1.4 10*3/uL Normal 1.0-3.5 [facility] Comment on above: Performed By: #### C BCA, CMP, TSHR #### [facility] ([id number]) [address] [place] [address] 97417 #### 3051-0 #### [facility] ([id number]) [address] [place] [address] Lymphocytes/100 WBC (Bld) 26.3 % Normal [facility] Comment on above: Performed By: #### C BCA, CMP, TSHR #### [facility] ([id number]) [address] [place] [address] 23333 #### 3051-0 #### [facility] ([id number]) [address] [place] [address] MCH (RBC) [Entitic mass] 30.1 pg Normal 27-34 [facility] Comment on above: Performed By: #### C BCA, CMP, TSHR #### [facility] ([id number]) [address] [place] [address] 71005 #### 3051-0 #### [facility] ([id number]) [address] [place] [address] MCHC (RBC) [Mass/Vol] 33.6 g/dL Normal 32-36 [facility] Comment on above: Performed By: #### C BCA, CMP, TSHR #### [facility] ([id number]) [address] [place] [address] 63041 #### 3051-0 #### [facility] ([id number]) [address] [place] [address] MCV (RBC) [Entitic vol] 90 fL Normal 80-100 [facility] Comment on above: Performed By: #### C BCA, CMP, TSHR #### [facility] ([id number]) [address] [place] [address] 97102 #### 3051-0 #### [facility] ([id number]) [address] [place] [address] Monocytes (Bld) [#/Vol] 0.4 10*3/uL Normal 0-0.9 [facility] Comment on above: Performed By: #### C BCA, CMP, TSHR #### [facility] ([id number]) [address] [place] [address] 01769 #### 3051-0 #### [facility] ([id number]) [address] [place] [address] Monocytes/100 WBC (Bld) 7.4 % Normal [facility] Comment on above: Performed By: #### C BCA, CMP, TSHR #### [facility] ([id number]) [address] [place] [address] 94459 #### 3051-0 #### [facility] ([id number]) [address] [place] [address] Neutrophils/100 WBC (Bld) 64.0 % Normal [facility] Comment on above: Performed By: #### C BCA, CMP, TSHR #### [facility] ([id number]) [address] [place] [address] 04708 #### 3051-0 #### [facility] ([id number]) [address] [place] [address] Platelet mean volume (Bld) [Entitic vol] 9.0 fL Normal 7-12 [facility] Comment on above: Performed By: #### C BCA, CMP, TSHR #### [facility] ([id number]) [address] [place] [address] 02427 #### 3051-0 #### [facility] ([id number]) [address] [place] [address] Platelets (Bld) [#/Vol] 271 10*3/uL Normal 150-450 [facility] Comment on above: Performed By: #### C BCA, CMP, TSHR #### [facility] ([id number]) [address] [place] [address] 51987 #### 3051-0 #### [facility] ([id number]) [address] [place] [address] RBC COUNT 4.20 X10E12/L Normal 3.80-5.20 [facility] Comment on above: Performed By: #### C BCA, CMP, TSHR #### [facility] ([id number]) [address] [place] [address] 99771 #### 3051-0 #### [facility] ([id number]) [address] [place] [address] WBC (Bld) [#/Vol] 5.2 10*3/uL Normal 4.0-11.0 [facility] Comment on above: Performed By: #### C BCA, CMP, TSHR #### [facility] ([id number]) [address] [place] [address] 47038 #### 3051-0 #### [facility] ([id number]) [address] [place] [address] COMPREHENSIVE METABOLIC PANE Ollie 11-11-2023 Albumin [Mass/Vol] 4.5 g/dL Normal 3.2-5.3 [facility] Comment on above: Performed By: #### C BCA, CMP, TSHR #### [facility] ([id number]) [address] [place] [address] 84686 #### 3051-0 #### [facility] ([id number]) [address] [place] [address] ALP [Catalytic activity/Vol] 68 U/L Normal 39-130 [facility] Comment on above: Performed By: #### C BCA, CMP, TSHR #### [facility] ([id number]) [address] [place] [address] 95878 #### 3051-0 #### [facility] ([id number]) [address] [place] [address] ALT [Catalytic activity/Vol] 24 U/L Normal 0-31 [facility] Comment on above: Performed By: #### C BCA, CMP, TSHR #### [facility] ([id number]) [address] [place] [address] 79364 #### 3051-0 #### [facility] ([id number]) [address] [place] [address] Anion gap [Moles/Vol] 8 mmol/L Normal 5-15 [facility] Comment on above: Performed By: #### C BCA, CMP, TSHR #### [facility] ([id number]) [address] [place] [address] 49714 #### 3051-0 #### [facility] ([id number]) [address] [place] [address] AST [Catalytic activity/Vol] 21 U/L Normal 0-41 [facility] Comment on above: Performed By: #### C BCA, CMP, TSHR #### [facility] ([id number]) [address] [place] [address] 07454 #### 3051-0 #### [facility] ([id number]) [address] [place] [address] Bilirubin [Mass/Vol] 0.5 mg/dL Normal 0.3-1.2 [facility] Comment on above: Performed By: #### C BCA, CMP, TSHR #### [facility] ([id number]) [address] [place] [address] 34359 #### 3051-0 #### [facility] ([id number]) [address] [place] [address] Calcium [Mass/Vol] 9.3 mg/dL Normal 8.5-10.5 [facility] Comment on above: Performed By: #### C BCA, CMP, TSHR #### [facility] ([id number]) [address] [place] [address] 64353 #### 3051-0 #### [facility] ([id number]) [address] [place] [address] Chloride [Moles/Vol] 105 mmol/L Normal 98-109 [facility] Comment on above: Performed By: #### C BCA, CMP, TSHR #### [facility] ([id number]) [address] [place] [address] 26769 #### 3051-0 #### [facility] ([id number]) [address] [place] [address] CO2 [Moles/Vol] 23 mmol/L Normal 22-32 [facility] Comment on above: Performed By: #### C BCA, CMP, TSHR #### [facility] ([id number]) [address] [place] [address] 56989 #### 3051-0 #### [facility] ([id number]) [address] [place] [address] Creatinine [Mass/Vol] 1.23 mg/dL High 0.40-1.00 [facility] Comment on above: Result Comment: METH OD TRACEABLE TO IDMS STANDARD Performed By: #### C BCA, CMP, TSHR #### [facility] ([id number]) [address] [place] [address] 13247 #### 3051-0 #### [facility] ([id number]) [address] [place] [address] GFR/1.73 sq M.predicted among non-blacks MDRD (S/P/Bld) [Vol rate/Area] 47 mL/min/{1.73_m2} Low >59 [facility] Comment on above: Result Comment: Reported eGFR is based on the CKD-EPI 2020 equation that does not use a race coefficient. Performed By: #### C BCA, CMP, TSHR #### [facility] ([id number]) [address] [place] [address] 35855 #### 3051-0 #### [facility] ([id number]) [address] [place] [address] Glucose [Mass/Vol] 127 mg/dL High 65-99 [facility] Comment on above: Performed By: #### C BCA, CMP, TSHR #### [facility] ([id number]) [address] [place] [address] 21802 #### 3051-0 #### [facility] ([id number]) [address] [place] [address] Potassium [Moles/Vol] 4.3 mmol/L Normal 3.5-5.0 [facility] Comment on above: Performed By: #### C BCA, CMP, TSHR #### [facility] ([id number]) [address] [place] [address] 28854 #### 3051-0 #### [facility] ([id number]) [address] [place] [address] Protein [Mass/Vol] 8.5 g/dL High 6.0-8.0 [facility] Comment on above: Performed By: #### C BCA, CMP, TSHR #### [facility] ([id number]) [address] [place] [address] 14004 #### 3051-0 #### [facility] ([id number]) [address] [place] [address] Sodium [Moles/Vol] 136 mmol/L Normal 134-146 [facility] Comment on above: Performed By: #### C BCA, CMP, TSHR #### [facility] ([id number]) [address] [place] [address] 57782 #### 3051-0 #### [facility] ([id number]) [address] [place] [address] Urea nitrogen [Mass/Vol] 25 mg/dL Normal 5-27 [facility] Comment on above: Performed By: #### C BCA, CMP, TSHR #### [facility] ([id number]) [address] [place] [address] 45136 #### 3051-0 #### [facility] ([id number]) [address] [place] [address] FREE T3on 11-11-2023 Free T3 [Mass/Vol] 3.18 pg/mL Normal 2.50-3.90 [facility] Comment on above: Performed By: #### C BCA, CMP, TSHR #### [facility] ([id number]) [address] [place] [address] 21795 #### 3051-0 #### [facility] ([id number]) [address] [place] [address] TSH WITH REFLEXon 11-11-2023 TSH 0.93 uIU/mL Normal 0.49-4.67 [facility] Comment on above: Performed By: #### C BCA, CMP, TSHR #### [facility] ([id number]) [address] [place] [address] 49427 #### 3051-0 #### [facility] ([id number]) [address] [place] [address] CARDIAC ANDREY ADMITon 023 CK [Catalytic activity/Vol] 49 U/L Normal 26-192 [facility] Comment on above: Performed By: #### B CORWIN SALDANA #### [facility] [address] [address] [address] Amy Pillai CK.MB [Mass/Vol] ng/mL Normal <=3.60 [facility] Comment on above: Performed By: #### B LES, CMADM #### [facility] [address] [address] [address] Amy Pillai HSTROP 5.6 pg/mL Normal 4.0-51.3 [facility] Comment on above: Result Comment: CUT- OFF POINTS HAVE BEEN ESTABLISHED BASED ON THE FOURTH UNIVERSAL DEFINITIONS OF MYOCARDIAL INFARCTION. THE UPPER REFERENCE LIMIT (URL) OF TROPONIN, DEFINED THE 99TH PERCENTILE OF cTnI DISTRIBUTION IN A REFERENCE POPULATION, HAS BEEN CONFIRMED THE DECISION THRESHOLD FOR [place] DIAGNOSIS. Performed By: #### B CORWIN SALDANA #### [facility] [address] [place] [address] Dr. Amy Pillai NAZIA 27 ng/mL Normal 9-82 [facility] Comment on above: Performed By: #### B CORWIN SALDANA #### [facility] [address] [place] [address] Dr. Amy Pillai CBC W MANUAL DIFFon 03-20-19 ATYPICAL LYMPH # Normal [facility] Comment on above: Performed By: #### C PAOLA #### [facility] [address] [place] [address] Dr. Amy Pillai ATYPICAL LYMPH % Normal [facility] Comment on above: Performed By: #### C PAOLA #### [facility] [address] [place] [address] Dr. Amy Pillai BAND # 0.0 103/ul Normal 0.0-0.3 [facility] Comment on above: Performed By: #### C PAOLA #### [facility] [address] [place] [address] Dr. Amy Pillai BAND % 0 % Normal 0-5 [facility] Comment on above: Performed By: #### C PAOLA #### [facility] [address] [place] [address] Dr. Amy Pillai BASOM # 0.00 103/ul Normal 0.00-0.10 [facility] Comment on above: Performed By: #### C PAOLA #### [facility] [address] [place] [address] Dr. Amy Pillai BASOM % 0.0 % Critically low 0.2-2.0 [facility] Comment on above: Performed By: #### C PAOLA #### [facility] [address] [place] [address] Dr. Amy Pillai BLAST # Normal [facility] Comment on above: Performed By: #### C PAOLA #### [facility] [address] [address] [address] Amy Pillai BLAST % Normal [facility] Comment on above: Performed By: #### C PAOLA #### [facility] [address] [address] [address] Amy Pillai CORRECTED WBC Normal 4.0-11.0 [facility] Comment on above: Performed By: #### C PAOLA #### [facility] [address] [place] [address] Dr. Amy Pillai EOS # 0.00 103/ul Normal 0.00-0.70 [facility] Comment on above: Performed By: #### C PAOLA #### [facility] [address] [place] [address] Dr. Amy Pillai EOS% 0.0 % Critically low 0.9-7.0 [facility] Comment on above: Performed By: #### C PAOLA #### [facility] [address] [place] [address] Dr. Amy Pillai HCT 34.9 % Critically low 36.0-48.0 [facility] Comment on above: Performed By: #### C PAOLA #### [facility] [address] [place] [address] Dr. Amy Pillai HGB 11.6 g/dl Critically low 12.0-16.0 [facility] Comment on above: Performed By: #### C PAOLA #### [facility] [address] [address] [address] Amy Pillai LYMPHM # 0.74 103/ul Critically low 1.20-3.80 [facility] Comment on above: Performed By: #### C PAOLA #### [facility] [address] [place] [address] Dr. Amy Pillai LYMPHM% 11.0 % Critically low 20.5-60.0 [facility] Comment on above: Performed By: #### C PAOLA #### [facility] [address] [place] [address] Dr. Amy Pillai MCH 29.2 pg Normal 26.7-34.0 [facility] Comment on above: Performed By: #### C PAOLA #### [facility] [address] [place] [address] Dr. Amy Pillai MCHC 33.2 g/dl Normal 29.9-35.2 [facility] Comment on above: Performed By: #### C BCSHEILA #### [facility] [address] [place] [address] Dr. Amy Pillai MCV 87.9 fL Normal 81.0-99.0 [facility] Comment on above: Performed By: #### C BCMAN #### [facility] [address] [place] [address] Dr. Amy Pillai METAMYELOCYTE # Normal [facility] Comment on above: Performed By: #### C PAOLA #### [facility] [address] [place] [address] Dr. Amy Pillai METAMYELOCYTE % Normal [facility] Comment on above: Performed By: #### C PAOLA #### [facility] [address] [place] [address] Dr. Amy Pillai MONOM# 0.27 103/ul Critically low 0.30-0.80 [facility] Comment on above: Performed By: #### C PAOLA #### [facility] [address] [place] [address] Dr. Amy Pillai MONOM% 4.0 % Normal 1.7-12.0 [facility] Comment on above: Performed By: #### C BCSHEILA #### [facility] [address] [place] [address] Dr. Amy Pillai MPV 11.2 fL Normal 9.5-13.5 [facility] Comment on above: Performed By: #### C BCMAN #### [facility] [address] [place] [address] Dr. Amy Pillai MYELOCYTE # Normal [facility] Comment on above: Performed By: #### C PAOLA #### [facility] [address] [place] [address] Dr. Amy Pillai MYELOCYTE % Normal [facility] Comment on above: Performed By: #### C PAOLA #### [facility] [address] [place] [address] Dr. Amy Pillai NRBC Normal [facility] Comment on above: Performed By: #### C PAOLA #### [facility] [address] [place] [address] Dr. Amy Pillai PLT 259 103/ul Normal 150-450 [facility] Comment on above: Performed By: #### C PAOLA #### [facility] [address] [address] [address] Amy Pillai RBC 3.97 106/ul Critically low 4.20-5.40 [facility] Comment on above: Performed By: #### C PAOLA #### [facility] [address] [place] [address] Dr. Amy Pillai RDW 12.6 % Normal 11.0-15.0 [facility] Comment on above: Performed By: #### C PAOLA #### [facility] [address] [place] [address] Dr. Amy Pillai SEG # 5.70 103/ul Normal 1.40-6.50 [facility] Comment on above: Performed By: #### C PAOLA #### [facility] [address] [place] [address] Dr. Amy Pillai SEG % 85.0 % Critically high 43.0-75.0 [facility] Comment on above: Performed By: #### C PAOLA #### [facility] [address] [place] [address] Dr. Amy Pillai WBC 6.7 103/ul Normal 4.0-11.0 [facility] Comment on above: Performed By: #### C PAOLA #### [facility] [address] [place] [address] FACIAL BONES WO [...] BENJAMIN MAGUIRE Date: 2022-03-20 06:51 Normal [facility] CT HEAD WO CONon 03-20-2022 [...] BENJAMIN MAGUIRE Date: 2022-03-20 06:48 Normal [facility] Covid-19 PCR (CVDTB)on 03-03 SARS-CoV-2 (COVID-19) RNA SHANTEL+probe Ql (Unsp spec) Not detected Normal NOT DETECTED [facility] Comment on above: Result Comment: [...] for this test is supported by the Case Managers of Health and Human Service's declaration that [...] used). Performed By: #### C VDTBH #### [facility] [address] [place] [address] Dr. Amy Pillai D-DIMERon 03-20-2022 D-DIMER 0.52 mg/L FEU Normal <=0.59 [facility] Comment on above: Performed By: #### D DIM #### [facility] [address] [place] [address] Dr. Amy Pillai D-DIMER COMMENTS SEE BELOW Normal [facility] Comment on above: Result Comment: Incr eases [...] hospitalization. Performed By: #### D DIM #### [facility] [address] [place] [address] Dr. Amy Pillai INFLUENZA A AND B AGon 03-20 INFLUENZA A AG Negative Normal NEGATIVE SEE COMMENT [facility] Comment on above: Performed By: #### I NFLUAB ####[facility] [id number] [address]Dr[address] Amy Pillai INFLUENZA B AG Negative Normal NEGATIVE SEE COMMENT [facility] Comment on above: Performed By: #### I NFLUAB ####[facility] [id number] [address]Dr[address] Amy Pillai LACTATE/LACTIC ACIDon 2022 Lactate [Moles/Vol] 1.1 mmol/L Normal 0.4-1.9 [facility] Comment on above: Performed By: #### L ACT #### [facility] [address] [place] [address] Dr. Amy Pillai PROF CHEM 8 (BAS METB)on Anion gap [Moles/Vol] 14.0 mmol/L Normal [facility] Comment on above: Performed By: #### B LES, CMADM #### [facility] [address] [place] [address] Dr. Amy Pillai Calcium [Mass/Vol] 9.4 mg/dL Normal 8.5-10.1 [facility] Comment on above: Performed By: #### B LES, SCOTTYDM #### [facility] [address] [place] [address] Dr. Amy Pillai Chloride [Moles/Vol] 101 mmol/L Normal 98-107 [facility] Comment on above: Performed By: #### B LES, CMADM #### [facility] [address] [place] [address] Dr. Amy Pillai CO2 [Moles/Vol] 24.0 mmol/L Normal 21.0-32.0 [facility] Comment on above: Performed By: #### B LES, CMADM #### [facility] [address] [place] [address] Dr. Amy Pillai Creatinine [Mass/Vol] 0.93 mg/dL Normal 0.55-1.02 [facility] [facility] Comment on above: Performed By: #### B LES, CMADM #### [facility] [address] [place] [address] Dr. Amy Pillai EGFR-AF SOUTH AFRICAN >60 Normal >=60 [facility] Comment on above: Performed By: #### B LES, CMADM #### [facility] [address] [place] [address] Dr. Amy Pillai EGFR-NON AF SOUTH AFRICAN 60 mL/min/1.73m2 Normal >=60 [facility] Comment on above: Performed By: #### B LES, CMADM #### [facility] [address] [address] [address] Amy Pillai Glucose [Mass/Vol] 169 mg/dL Critically high 74-106 T [facility] Comment on above: Performed By: #### B LES, CMADM #### [facility] [address] [address] [address] Amy Pillai Potassium [Moles/Vol] 4.0 mmol/L Normal 3.5-5.1 [facility] Comment on above: Performed By: #### B LES, CMADM #### [facility] [address] [address] [address] Amy Pillai Sodium [Moles/Vol] 135 mmol/L Critically low 136-145 Th [facility] Comment on above: Performed By: #### B LES, CMADM #### [facility] [address] [place] [address] Dr. Amy Pillai Urea nitrogen [Mass/Vol] 12.0 mg/dL Normal 7.0-18.0 [facility] Comment on above: Performed By: #### B LES, CMADM #### [facility] [address] [address] [address] Amy Pillai Urea nitrogen/Creatinine [Mass ratio] 12.9 mg/mg Normal [facility] Comment on above: Performed By: #### B LES, CMADM #### [facility] [address] [place] [address] Dr. Amy Pillai XR CHEST 2 Von [...] BENJAMIN MAGUIRE Date: 2022-03-20 06:44 Normal [facility] MAMM SCREEN 3D MELECIO CADon 05-29-2021 MG MAMM SCREEN 3D MELECIO CAD Patient: CHIQUITA FARFAN Exam Date: 05/29/2021 : 1955 Gender:F Ordering : DR JUVE OLSON Admission #: [id number] Family : Order #: [id number] CLICK HERE TO VIEW EXAM RADIOLOGY REPORT [...] Treatments None Family Cancers None LOCATION: [facility] BREAST COMPOSITION: Heterogeneously dense,which may [...] M.D. on 05/29/2021 at 15:40 Normal [facility] General Surgery Office/Clini c Noteon 11-22-2019 General Surgery Office/Clinic Note Chief Complaint self referral for ABD pain HPI Staff 64 year old female presents on self referral from [facility] ED for complaint of abdominal [...] back pain, recently seen in ED at [facility] for constipation and mid/LLQ crampy abdominal pain; [...] 2: Mother and Brother. Hypertension: Mother. Normal [facility] Comment on above: Result Comment: Elec tronically Signed By: ALY ELIAS, Carl Glaser\Date and Time Signed: 11/22/19 16:04 EDT Facesheeton 11-15-2019 Facesheet [id number] .00CD:127 Normal [facility] Ambulatory Clinical Summaryo n 11-12-2019 Ambulatory Clinical Summary {[id number]}CD:[id number] Normal [facility] ED Note-Physicianon 11-11-19 ED Note-Physician [id number] .00CD:127 Normal [facility] RAD - CT Reporton 11-11-2019 RAD - CT Report [id number] .00CD:127 Normal [facility] MAGR Preoperative Recordon 0 08-04-2018 MAGR Preoperative Record MAGR Pre-Op Record Summary Primary Physician: Madan Leal DO Finalized Date/Time: 08/04/18 09:26:06 Pt. Name: NAHEED CHIQUITAYUE Devine./Sex: 1955 FEMALE Med Rec #: [id number] Physician: Madan Leal DO Financial #: [id number] Pt. Type: D Room/Bed: [facility] Admit/Disch: 07/22/18 11:48:00 - 07/22/18 17:40:00 Institution: [...] Signed By: Halley Hinkle RN 08/04/18 09:26 [facility] Coding Summaryon 07-29-2018 Coding Summary CODING DATE: 07/29/2018 [facility] STATUS: Home PAYOR: Medicare MC APC [...] Paige Fernandes Date Saved: 07/29/2018 07:14 am [facility] Consent Formson 07-24-2018 Consent Forms [id number]. [facility] Physical[facility] 07-24 History and Physical [id number]. [facility] Outside Recordson 07-24-2018 Outside Records [id number]. [facility] Provider Orderson 07-24-2018 Protein mass conc [id number]. 00OTGTIFF [facility] MAGR Postoperative Recordon 07-23-2018 MAGR Postoperative Record MAGR Phase II Record Summary Primary Physician: Madan Leal DO Finalized Date/Time: 07/23/18 10:35:15 Pt. Name: CHIQUITA FARFAN /Sex: 1955 FEMALE Med Rec #: [id number] Physician: Madan Leal DO Financial #: [id number] Pt. Type: D Room/Bed: [facility] Admit/Disch: 07/22/18 11:48:00 - 07/22/18 17:40:00 Institution: [...] discharge instructions. General Comments: CARE PER 2 [facility] NURSING STAFF Finalized By: Sharmila Grover RN Document Signatures Signed By: Sharmila Grover RN 07/23/18 10:35 [facility] Anesthesia Noteon 07-22-2018 Anesthesia Note Patient: CHIQUITA [...] history): All Problems Hypertension / SNOMED CT 3486255199 / Confirmed Histories Family History: No family history items have been selected or recorded. Procedure history: Hysterectomy (521142996). Social History Alcohol Assessment Use: Past. Tobacco [...] Results ECG interpretation: Normal sinus rhythm. Plan [place] [employer]#( A) physical status classification: Class II. Anesthetic Preoperative Plan Anesthesia: Monitored anesthesia care. Anesthetic plan, risks, benefits, and alternatives discussed with the patient and/or family. Patient verbalized understanding. Family/Guardian present. Informed consent was given. Consent was signed by the patient. [Electronically Signed on: 07/22/2018 14:59 EDT] Vinny Eli MD [Verified on: 07/22/2018 14:59 EDT] Vinny Eli MD [facility] Education Noteon 07-22-2018 Education Note Education Materials [...] or concerns, please call the office at [phone] -Follow up as scheduled [facility] Inpatient Patient Summaryon 07-22-2018 [place] [address] Patient Discharge Instructions Name: CHIQUITA FARFAN : [birth year] Patient [address]: [address] [place] [address] Primary Care Provider: Name: JEFFERY HERMAN After you are discharged if you find you have any questions, please, call [phone] ext [phone] to speak to a nurse. Discharge Diagnosis: [...] business decisions or sign any legal documents [facility] would like to thank you for allowing us to assist you with your healthcare needs. The following includes patient education materials and information regarding your injury/illness. CHIQUITA FARFAN has been given the following list of follow-up instructions, prescriptions, and patient education materials: Follow-up Instructions With: Address: When: Madan Leal [address] [place] [address], [address] [place] [address] Business (2) In 13 days 08/04/18 With: Address: When: JEFFERY HERMAN [address] [place] [address], [facility] [place], [place] [id number] Business (1) Medications During the course of [...] or concerns, please call the office at [phone] -Follow up as scheduled Viruses or Bacteria [...] for Disease Control and Prevention November 2013 [facility] MAGR Intraoperative Recordon 07-22-2018 MAGR Intraoperative Record MAGR Intra-Op Record Summary Primary Physician: Madan Leal DO Finalized Date/Time: 07/22/18 16:05:48 Pt. Name: CHIQUITA FARFAN/Sex: 1955 FEMALE Med Rec #: [id number] Physician: Madan Leal DO Financial #: [id number] Pt. Type: D Room/Bed: [facility]/1 Admit/Disch: 07/22/18 11:48:00 - Institution: Case Times [...] Andrew DO Role Performed Surgeon - Primary Soft Work Wrapper Examiner Soft Work Wrapper Examiner Time In 07/22/18 15:00:00 07/22/18 15:00:00 07/22/18 15:00:00 Time Out 07/22/18 15:50:00 07/22/18 15:50:00 07/22/18 15:50:00 Procedure Kyphoplasty Kyphoplasty Kyphoplasty Last Modified By: Sharmila Grover RN, Barbara RN Long, Barbara RN 07/22/18 15:50:46 07/22/18 15:50:46 07/22/18 15:50:46 Entry 4 Entry 5 Entry 6 Case Attendee Georgia Nair Linda M Calmes, Luke T Role Performed Scrub Personnel Soft Work Wrapper Examiner [employer] Time In 07/22/18 15:00:00 07/22/18 15:00:00 07/22/18 15:00:00 Time Out 07/22/18 15:50:00 07/22/18 15:50:00 07/22/18 15:50:00 Procedure Kyphoplasty Kyphoplasty Kyphoplasty Last Modified By: Sharmila Grover RN, Barbara RN Long, Barbara RN 07/22/18 15:50:46 07/22/18 15:50:46 07/22/18 15:50:46 Entry 7 Entry 8 Case Attendee Candelaria Hall Jenna Role Performed Svp Digital Sales [employer] Time In 07/22/18 15:00:00 07/22/18 15:00:00 Time [...] 15:40:00 BONE CEMENT Date/Time Implanted/Explanted Madan Leal Parts Room Assistant [employer] By: Barak JEROME Lot Number [id number] Expiration Date 04/30/20 Implant Usage Data Site Back Quantity 1 Insulator Technician Sterility Outcome Met (O.30) Yes Last Modified [...] Signed By: Sharmila Grover RN 07/22/18 16:05 [facility] Operative Report - Surgeon/P carlotta 07-22-2018 Operative [...] on: 07/22/2018 16:01 EDT] Madan Leal DO [facility] XR Fluoro Surgeryon 07-23-19 19 XR Fluoro [...] Alli Dunaway MD 07/23/18 7:26 am [facility] 2 Viewson 07-22-2018 XR [...] Alli Dunaway MD 07/23/18 7:26 am [facility]ologist[facility] Coding Summaryon 07-20-2018 Coding Summary CODING DATE: 07/20/2018 [facility] STATUS: Home PAYOR: Medicare MC APC [...] Kimberly Wilson Date Saved: 06/30/2018 01:44 pm [facility] Coding Summaryon 06-30-2018 Coding Summary CODING DATE: 06/30/2018 [facility] STATUS: Home PAYOR: Medicare MC APC [...] Kimberly Wilson Date Saved: 06/30/2018 01:44 pm [facility] Anesthesia Noteon 06-26-2018 Anesthesia Note Patient: CHIQUITA [...] the NTG and refered her to a marketing professor for stress testing in 08/2017. She did [...] history): All Problems Hypertension / SNOMED CT [id number] / Confirmed Histories Family History: No family history items have been selected or recorded. Procedure history: Hysterectomy ([id number]). Social History Alcohol Assessment Use: Past. Tobacco [...] surgery done at a facility with a manager labor relations and an transporter driver. . [Electronically Signed on: 06/26/2018 12:11 EDT] Benjamin Fajardo DO [Verified on: 06/26/2018 12:11 EDT] Benjamin Fajardo DO [facility] Progress Note - Nurseon 06-02 Protein mass conc Spoke with Duarte at Dr. Herman's office in regards to a cardiology consult that is needed for surgery clearance. Verbalized understanding. Duarte will let pt know once she gets her an appointment. [Electronically Signed on: 06/26/2018 13:30 EDT] Ruma Pérez RN [Verified on: 06/26/2018 13:30 EDT] Ruma Pérez RN [facility] Vital Signs Date Time Vital Sign Value Performing Clinician Karyna lobo 10-23-2023 15:38-0400 Body height 165.1 cm Guerda Carrillo DPM Work Phone: [facility] 10-23-2023 15:38-0400 Body mass index (BMI) [Ratio] 32.78 kg/m2 uGerda WILLIAMSONM Work Phone: [facility] 10-23-2023 15:38-0400 Body weight 89.36 kg Guerda WILLIAMSONM Work Phone: [facility] Healthcare Encounters Encounter Date Encounter Type Care Provider Facility Start: 11-11-2023 End: 11-11-2023 ambulatory CHRISTOPHER [facility] Start: 10-23-2023 End: 10-23-2023 Office outpatient visit 25 minutes Guerda WILLIASMONM Work Phone: [facility] Comment on above: Plantar fasciitis, b ilateral (Primary Dx); Type II or unspecified type diabetes mellitus with neurological manifestations, not stated as uncontrolled(250.60) (CMS/[facility]); Gastrocnemius equinus of right lower extremity; Gastrocnemius equinus of left lower extremity Start: 10-23-2023 End: 10-23-2023 ambulatory GUERDA CARRILLO Not Available Start: 10-23-2023 End: 10-23-2023 Bamboo flowsheet Guerda Carrillo DPM Work Phone: [facility] Start: 10-23-2023 End: 10-23-2023 Bamboo flowsheet Guerda Carrillo DPM Work Phone: [facility] Start: 03-20-2022 End: 03-20-2022 ambulatory SADI ROSAS Facility:[facility] Start: 05-29-2021 End: 05-30-[address] JUVE OLSON Facility:[facility] Start: 08-08-2017 End: 08-09-2017 Ambulatory DEFAULT PHYSICIAN Facility:[facility] Plan of Treatment Date Care Activity Detail Author Start: 11-18-2023 End: 11-18-2023 Patient encounter procedure 11/18/2023 9:30 AM EDT Office Visit [facility] [address] [place] [phone] Guerda Carrillo, DPM [address] [place], [place] [id number] [facility] Start: 11-02-2023 Influenza vaccination Influenza Vacc ine (#1) [facility] Start: 10-23-2023 End: 10-23-2023 Patient encounter procedure 10/23/2023 3:30 PM EDT Office Visit [facility] [address] [place] [phone] Guerda Carrillo, DPM [address] [place], [place] [id number] Arrived [facility] Comment on above: Arrived Start: 2018 [...] Payer Unknown 2020 Unknown [id number] 1961 Medicare [id number] 1955 Unknown [id number] [id number] [id number] 1955 Unknown [id number] 2.16.84 [id number] 1955 Unknown [id number] 2.16.84 [id number] 1955 Unknown [id number] 2.16.8 [id number] Social History Date Type Detail Facility Start: 10-23-2023 Tobacco smoking stat [facility] Never smoked tobacco [facility] Healthcare Start: 10-23-2023 Alcoholic beverage intake Life time non-drinker (finding) [facility] Start: 10-23-2023 History of Social function [facility] Start: 10-23-2023 Tobacco use panel [facility] Start: 1955 Sex assigned at Not on file [facility] Tobacco smoking stat [facility] Tobacco smoking consumption unknown [facility] History of Present illness Narrative 10-23-2023 Guerda [...] with neurological manifestations, not stated as uncontrolled(250.60) (CMS/[facility]) E11.49 3. Gastrocnemius equinus of right lower [...] Advanced Directives Records Found Hospital Course Note [facility] Clinical Discharge Summary PERSON INFORMATION Name CHIQUITA FARFAN Age 63 Years [birth year] Sex FEMALE Language Algerian PCP JEFFERY HERMAN Marital Status Single Med Service Ambulatory Surgery Acct# Arrival 07/22/18 11:48:00 Visit Reason surgery - KYPHOPLASTY T12 Acuity LOS Address: [address] [place] [id number] Comment: PROVIDER INFORMATION VITALS INFORMATION Vital Sign [...] FEMALE : [birth year] Associated Diagnoses: None Author: Vinyn Eli MD Postoperative Information Post Operative Note: [...] section and content) DATE CREATED AUTHOR 08/19/2017 [facility] DATE CREATED AUTHOR AUTHOR'S ORGANIZ ATION 08/09/2018 [facility] DATE CREATED AUTHOR AUTHOR'S ORGANIZ ATION 11/23/2019 [facility] DATE CREATED AUTHOR AUTHOR'S ORGANIZ ATION 03/21/2022 [facility] pital DATE CREATED AUTHOR AUTHOR'S ORGANIZ ATION 10/25/2023 [facility] EPIC DATE CREATED AUTHOR AUTHOR'S ORGANIZ ATION 11/13/2023 [facility] Reason for Visit (unrecogniz ed section and content) Reason Comments DM Foot Care Chiquita Farfan 68yo Patient presents for Diabetic Foot check, patient relates her heels burn. Sensation started 3 months. BS 136 A1C 6.1 Jacklyn Fowler 06/18/2023 SS Care Teams (unrecognized sec tion and content) Talent Development Coordinator Relationship Specialty Start Date End Date Unallocated, [place] [address] PCP - General Family Medicine 02/12/23 Shannan Garvey MD [address] [place] [address] PCP - Devoted 03/03/23 Talent Development Coordinator Relationship Specialty Start Date End Date Unallocated, [place] [address] PCP - General Family Medicine 02/12/23 Shannan Garvey MD [address] [facility] [place] [address] PCP - Devoted 03/03/23 FOR RECORDS PERTAINING [...] BE BASED ON THE PRIMARY CLINICAL RECORDS. [facility] [employer] [facility]. provides no warranty or guarantee of the accuracy or completeness of information in this document.
[2024-05-06 17:13] LABS: Albumin 4.1 g/dL (2.9-4.4); Alpha-1-Globulin 0.2 g/dL (0.0-0.4); Alpha-2-Globulin 0.7 g/dL (0.4-1.0); Gamma Globulin 1.9 g/dL (0.4-1.8); Protein, Total 7.9 g/dL (6.0-8.5)
== END 2024-05-05 10:21 | disposition home or self-care (01) ==
LOC: LAB 10:22
PROVIDERS: PCP Family Medicine; Visit Provider Family Medicine
DX: E46 Unspecified protein-calorie malnutrition (principal)
CPT/HCPCS: 36415; 84155; 84165

== ENCOUNTER 2024-07-19 10:21 | Outpatient (OUT) | payer OTHER, SELFPAY ==
--- NOTE | 2024-07-19 | NM_ITS ---
Patient Name: IPETRO FARFAN MR#: [id number] : 1955 Exam Date: 07/19/2024 Ordering Doctor: DR HAYDEN CAMARGO . RADIOLOGY REPORT PROCEDURE: NM NAZIA PERF SPECT REST STR COMPARISON: None. INDICATIONS: DYSPNEA TECHNIQUE: Exam Description: Rest/Stress one day protocol gated SPECT Rest Imagin.5 mCi Tc-99m Cardiolite IV on 07/19/2024 Stress Imaging 29.9 mCi Tc-99m Cardiolite IV on 07/19/2024 Exercise Protocol: 0.4 mg Lexiscan given IV Heart Rate (bpm): Rest: 61 Max: 107 PMHR: 71 Blood Pressure: Rest: 142/85 Max: 144/78 Symptoms: Rest and peak stress ECG findings were pending, and the exercise portion of the study was pending per attending physician [facility]. For more details, please see separate cardiac stress test report. FINDINGS: QUALITY OF STUDY: Good PERFUSION DEFECT: LOCATION: N/A SIZE: N/A SEVERITY: N/A TYPE: N/A WALL MOTION: Normal wall motion LV SIZE: 55 mL TID / TCD: 0.9 LVEF: Calculated EF 74%. SUMMARY: Myocardial perfusion imaging study is normal CONCLUSION: 1. Myocardial perfusion is normal with soft tissue attenuation 2. Global left ventricular systolic function is normal 3. No evidence of transient ischemic dilatation Dictated by: Shamar Castillo M.D. on 07/21/2024 at 16:32 Approved by: Shamar Castillo M.D. on 07/21/2024 at 16:34
--- OUTSIDE RECORDS SUMMARY | 2024-07-19 10:28 | XMS_ITS | CCD ---
Author Organization [facility] Care Team Providers Care Portfolio Consultant Name Role Phone PHYSICIAN, DEFAULT Unavailable Unavailable PHYSICIAN, DEFAULT Unavailable Unavailable SADI ROSAS Admitting Unavailable SADI ROSAS Attending Unavailable [facility] Primary Care Unavailable DIGGS, DR BENJAMIN Marshall Consulting Unavailable SADI ROSAS Consulting Unavailable WESLEY, DR AN Admitting Unavailable WESLEY, DR AN Attending Unavailable REQUEST, DR SHINE LISTED Primary Care Unavaila de BARBER, DR ZAC Mulligan Consulting Unavailable WESLEY, DR AN Consulting Unavailable GUERDA CARRILLO Attending Unavailable Unallocated Dean ELIAS Provider Primary Care Provi shaji Shannan Garvey MD Unavailable Katherine ROUTE SALES SPECIALIST-[facility], [place] Primary Care Provider CHRISTOPHER RODRIGUEZ Referring Unavailable [facility] Primary Care Unavailable ROSAS CONNORS Attending Unavailable PAULA MURPHY Referring Unavailable KATHERINE, [place] Primary Care Unavailable ROSAS CONNORS Attending Unavailable ROSAS CONNORS Referring Unavailable HAYDEN CAMARGO Primary Care Unavailable Medications Current Medications Medication Drug Class(es) Dates Sig (Normalized) Sig (Original) acetaminophen 500 mg oral tablet (2 sources) acetaminophen (TYLENOL EXTRA STRENGTH) 500 mg tablet Active amLODIPine 10 mg oral tablet (4 sources) Dihydropyridine Calcium Channel Raakn amLODIPine (NORVASC) 10 mg tablet Active Cinnamon Bark (4 sources) cinnamon bark extract 500 mg tablet Active cinnamon 500 MG capsule as directed Orally Active irbesartan 150 mg oral tablet (2 sources) Angiotensin 2 Receptor Rakan take 1 tablet by mouth once daily irbesartan (AVAPRO) 150 mg tablet Take 150 mg by mouth nightly. Active latanoprost 0.05 mg/ml ophthalmic solution (2 sources) Prostaglandin Analog take 1 drop(s) into the eye(s) once daily latanoprost (XALATAN) 0.005 % ophthalmic solution 1 drop nightly. Active meclizine hydrochloride 25 mg chewable tablet (2 sources) Antiemetic meclizine (ANTIV ERT) 25 mg tablet Chew 25 mg and swallow 3 (three) times a day as needed for dizziness. Active meloxicam 15 mg oral tablet (2 sources) Nonsteroidal Anti-inflammatory Drug Start: 10-23-19 End: 11-13-19 24 take 1 tablet by mouth once daily meloxicam (Mobic) 15 MG tablet Indications: Plantar fasciitis, bilateral Take 1 tablet (15 mg) by mouth Daily for 21 days 21 tablet 10/23/2023 11/13/2023 Active metFORMIN hydrochloride 850 mg oral tablet (4 sources) Biguanide metFORMIN (GLUCOPHAGE) 850 mg tablet Active 24 hr metoprolol succinate 50 mg extended release oral tablet (2 sources) beta-Adrenergic Rakan take 1 tablet by mouth once daily metoprolol succinate XL (TOPROL-XL) 50 mg 24 hr tablet Take 50 mg by mouth daily. Active rosuvastatin calcium 10 mg oral tablet (4 sources) HMG-CoA Reductase Inhibitor take 1 tablet by mouth once daily rosuvastatin (CRESTOR) 10 mg tablet 1 tablet Orally Once a day for 90 days Active timolol 2.5 mg/ml ophthalmic solution (2 sources) beta-Adrenergic Rakan timolol (TIMOPTIC) 0.25 % ophthalmic solution Active Problems Active Problems Problem Classification Problem Date Documented Da te Episodic/Chronic Diabetes mellitus with complications (2 sources) Type 2 diabetes mellitus with other diabetic neurological complication; Translations: [Diabetes with neurological manifestations, type II or unspecified type, not stated as uncontrolled] 10-23-2023 Chronic Neoplasms of unspecified nature or uncertain behavior (3 sources) Monoclonal gammopathy (clinical); Translations: [Monoclonal gammopathy] Onset: 06-11-2024 06-11-2024 Chronic Other hematologic conditions (3 sources) Hyperproteinemia; Translations: [Abnormality of plasma protein, unspecified] Onset: 06-11-2024 06-11-2024 Episodic Other nutritional; endocrine; and metabolic disorders (1 source) Hyperproteinemia; Translations: [Other disorders of plasma-protein metabolism, not elsewhere classified] 06-11-2024 Chronic Other nutritional; endocrine; and metabolic disorders (1 source) Other disorders of plasma-protein metabolism, not elsewhere classified; Translations: [Other disorders of plasma-protein metabolism, not elsewhere classified] Onset: 06-11-2024 Chronic Unclassified (1 source) New Patient Onset: 06-11-2024 Past or Other Problems Problem Classification Problem Date Documented Da te Episodic/Chronic Conditions associated with dizziness or vertigo (1 source) Dizziness and giddiness; Translations: [Dizziness and giddiness] Onset: 11-11-2023 Episodic Malaise and fatigue (1 source) Other fatigue; Translations: [Other fatigue] Onset: 11-11-2023 Episodic Nausea and vomiting (1 source) Nausea; Translations: [Nausea] Onset: 11-11-2023 Episodic Other connective tissue disease (2 sources) Bilateral [...] Test Name Value Interpretation Reference Range Facility XR OSSEOUS SURVEY COMPLETEon 06-15-2024 XR OSSEOUS SURVEY COMPLETE XR OSSEOUS SURVEY COMPLETE History: Hyperproteinemia. Evaluate for malignancy. Exam/Technique: BONE SURVEY 18 views include a PA chest, frontal and lateral views of the skull, AP and lateral views of the entire length of the spine, and AP views of the ribs, pelvis, femurs, and humeri. Comparison: None Findings: No distinct focal lytic bony lesions displayed in any location. Bone density does appear somewhat diminished diffusely. Moderate compression of the T12 vertebral body with previous kyphoplasty. No other compression fractures or aggressive appearing lesions spine. Scattered degenerative changes throughout the small anterior spurring in the thoracic and lumbar spine and with more prominent degenerative change at cervical levels with prominent posterior spurs at C4-C5 and C5-C6 moderate disc space narrowing at the C5-C6 level. Moderate degenerative changes in both hips. IMPRESSION: No aggressive bony lesions demonstrated. Compression of the T12 vertebral body with previous kyphoplasty Finalized by Lj Hernandez MD on 06/15/2024 2:52 PM Normal [facility] CBC AND AUTO DIFFon 11-11-19 24 ABSOLUTE BASOPHIL 0.0 X10E9/L Normal 0.0-0.2 [facility] Comment on above: Performed By: #### C BCA, CMP, TSHR #### [facility] ([id number]) [address] [place] [address] 91337 #### 3051-0 #### [facility] ([id number]) [address], [address] [place] [address] ABSOLUTE NEUTROPHIL 3.3 X10E9/L Normal 1.5-6.6 [facility] Comment on above: Performed By: #### C BCA, CMP, TSHR #### [facility] ([id number]) [address] [place] [address] 59140 #### 3051-0 #### [facility] ([id number]) [address], [address] [place] [address] Basophils/100 WBC (Bld) 0.7 % Normal [facility] Comment on above: Performed By: #### C BCA, CMP, TSHR #### [facility] ([id number]) [address] [place] [address] 78187 #### 3051-0 #### [facility] ([id number]) [address], [address] [place] [address] Eosinophils (Bld) [#/Vol] 0.1 10*3/uL Normal 0.0-0.4 [facility] Comment on above: Performed By: #### C BCA, CMP, TSHR #### [facility] ([id number]) [address] [place] [address] 73090 #### 3051-0 #### [facility] ([id number]) [address], [address] [place] [address] Eosinophils/100 WBC (Bld) 1.6 % Normal [facility] Comment on above: Performed By: #### C BCA, CMP, TSHR #### [facility] ([id number]) [address] [place] [address] 90214 #### 3051-0 #### [facility] ([id number]) [address], [address] [place] [address] Erythrocyte distribution width (RBC) [Ratio] 13.3 % Normal 11.5-15.0 [facility] Comment on above: Performed By: #### C BCA, CMP, TSHR #### [facility] ([id number]) [address] [place] [address] 60407 #### 3051-0 #### [facility] ([id number]) [address], [address] [place] [address] Hematocrit (Bld) [Volume fraction] 37.7 % Normal 35-47 [facility] Comment on above: Performed By: #### C BCA, CMP, TSHR #### [facility] ([id number]) [address] [place] [address] 51722 #### 3051-0 #### [facility] ([id number]) [address], [address] [place] [address] Hemoglobin (Bld) [Mass/Vol] 12.7 g/dL Normal 11.7-15.5 [facility] Comment on above: Performed By: #### C BCA, CMP, TSHR #### [facility] ([id number]) [address] [place] [address] 03615 #### 3051-0 #### [facility] ([id number]) [address], [address] [place] [address] Lymphocytes (Bld) [#/Vol] 1.4 10*3/uL Normal 1.0-3.5 [facility] Comment on above: Performed By: #### C BCA, CMP, TSHR #### [facility] ([id number]) [address] [place] [address] 78701 #### 3051-0 #### [facility] ([id number]) [address], [address] [place] [address] Lymphocytes/100 WBC (Bld) 26.3 % Normal [facility] Comment on above: Performed By: #### C BCA, CMP, TSHR #### [facility] ([id number]) [address] [place] [address] 45940 #### 3051-0 #### [facility] ([id number]) [address], [address] [place] [address] MCH (RBC) [Entitic mass] 30.1 pg Normal 27-34 [facility] Comment on above: Performed By: #### C BCA, CMP, TSHR #### [facility] ([id number]) [address] [place] [address] 39781 #### 3051-0 #### [facility] ([id number]) [address], [address] [place] [address] MCHC (RBC) [Mass/Vol] 33.6 g/dL Normal 32-36 [facility] Comment on above: Performed By: #### C BCA, CMP, TSHR #### [facility] ([id number]) [address] [place] [address] 35194 #### 3051-0 #### [facility] ([id number]) [address], [address] [place] [address] MCV (RBC) [Entitic vol] 90 fL Normal 80-100 [facility] Comment on above: Performed By: #### C BCA, CMP, TSHR #### [facility] ([id number]) [address] [place] [address] 50979 #### 3051-0 #### [facility] ([id number]) [address], [address] [place] [address] Monocytes (Bld) [#/Vol] 0.4 10*3/uL Normal 0-0.9 [facility] Comment on above: Performed By: #### C BCA, CMP, TSHR #### [facility] ([id number]) [address] [place] [address] 71189 #### 3051-0 #### [facility] ([id number]) [address] [place] [address] Monocytes/100 WBC (Bld) 7.4 % Normal [facility] Comment on above: Performed By: #### C BCA, CMP, TSHR #### [facility] ([id number]) [address] [place] [address] 63195 #### 3051-0 #### [facility] ([id number]) [address] [place] [address] Neutrophils/100 WBC (Bld) 64.0 % Normal [facility] Comment on above: Performed By: #### C BCA, CMP, TSHR #### [facility] ([id number]) [address] [place] [address] 20594 #### 3051-0 #### [facility] ([id number]) [address], [address] [place] [address] Platelet mean volume (Bld) [Entitic vol] 9.0 fL Normal 7-12 [facility] Comment on above: Performed By: #### C BCA, CMP, TSHR #### [facility] ([id number]) [address] [place] [address] 55506 #### 3051-0 #### [facility] ([id number]) [address], [address] [place] [address] Platelets (Bld) [#/Vol] 271 10*3/uL Normal 150-450 [facility] Comment on above: Performed By: #### C BCA, CMP, TSHR #### [facility] ([id number]) [address] [place] [address] 33589 #### 3051-0 #### [facility] ([id number]) [address] [place] [address] RBC COUNT 4.20 X10E12/L Normal 3.80-5.20 [facility] Comment on above: Performed By: #### C BCA, CMP, TSHR #### [facility] ([id number]) [address] [place] [address] 05963 #### 3051-0 #### [facility] ([id number]) [address], [address] [place] [address] WBC (Bld) [#/Vol] 5.2 10*3/uL Normal 4.0-11.0 [facility] Comment on above: Performed By: #### C BCA, CMP, TSHR #### [facility] ([id number]) [address] [place] [address] 77639 #### 3051-0 #### [facility] ([id number]) [address] [place] [address] COMPREHENSIVE METABOLIC PANE Ollie 11-11-2023 Albumin [Mass/Vol] 4.5 g/dL Normal 3.2-5.3 [facility] Comment on above: Performed By: #### C BCA, CMP, TSHR #### [facility] ([id number]) [address] [place] [address] 58005 #### 3051-0 #### [facility] ([id number]) [address] [place] [address] ALP [Catalytic activity/Vol] 68 U/L Normal 39-130 [facility] Comment on above: Performed By: #### C BCA, CMP, TSHR #### [facility] ([id number]) [address] [place] [address] 76213 #### 3051-0 #### [facility] ([id number]) [address] [place] [address] ALT [Catalytic activity/Vol] 24 U/L Normal 0-31 [facility] Comment on above: Performed By: #### C BCA, CMP, TSHR #### [facility] ([id number]) [address] [place] [address] 89620 #### 3051-0 #### [facility] ([id number]) [address] [place] [address] Anion gap [Moles/Vol] 8 mmol/L Normal 5-15 [facility] Comment on above: Performed By: #### C BCA, CMP, TSHR #### [facility] ([id number]) [address] [place] [address] 27540 #### 3051-0 #### [facility] ([id number]) [address] [place] [address] AST [Catalytic activity/Vol] 21 U/L Normal 0-41 [facility] Comment on above: Performed By: #### C BCA, CMP, TSHR #### [facility] ([id number]) [address] [place] [address] 39353 #### 3051-0 #### [facility] ([id number]) [address] [place] [address] Bilirubin [Mass/Vol] 0.5 mg/dL Normal 0.3-1.2 [facility] Comment on above: Performed By: #### C BCA, CMP, TSHR #### [facility] ([id number]) [address] [place] [address] 95730 #### 3051-0 #### [facility] ([id number]) [address] [place] [address] Calcium [Mass/Vol] 9.3 mg/dL Normal 8.5-10.5 [facility] Comment on above: Performed By: #### C BCA, CMP, TSHR #### [facility] ([id number]) [address] [place] [address] 64462 #### 3051-0 #### [facility] ([id number]) [address], [address] [place] [address] Chloride [Moles/Vol] 105 mmol/L Normal 98-109 [facility] Comment on above: Performed By: #### C BCA, CMP, TSHR #### [facility] ([id number]) [address] [place] [address] 35500 #### 3051-0 #### [facility] ([id number]) [address] [place] [address] CO2 [Moles/Vol] 23 mmol/L Normal 22-32 [facility] Comment on above: Performed By: #### C BCA, CMP, TSHR #### [facility] ([id number]) [address] [place] [address] 27427 #### 3051-0 #### [facility] ([id number]) [address] [place] [address] Creatinine [Mass/Vol] 1.23 mg/dL High 0.40-1.00 [facility] Comment on above: Result Comment: METH OD TRACEABLE TO IDMS STANDARD Performed By: #### C BCA, CMP, TSHR #### [facility] ([id number]) [address] [place] [address] 93484 #### 3051-0 #### [facility] ([id number]) [address] [place] [address] GFR/1.73 sq M.predicted among non-blacks MDRD (S/P/Bld) [Vol rate/Area] 47 mL/min/{1.73_m2} Low >59 [facility] Comment on above: Result Comment: Reported eGFR is based on the CKD-EPI 2020 equation that does not use a race coefficient. Performed By: #### C BCA, CMP, TSHR #### [facility] ([id number]) [address] [place] [address] 04943 #### 3051-0 #### [facility] ([id number]) [address] [place] [address] Glucose [Mass/Vol] 127 mg/dL High 65-99 [facility] Comment on above: Performed By: #### C BCA, CMP, TSHR #### [facility] ([id number]) [address] [place] [address] 36785 #### 3051-0 #### [facility] ([id number]) [address] [place] [address] Potassium [Moles/Vol] 4.3 mmol/L Normal 3.5-5.0 [facility] Comment on above: Performed By: #### C BCA, CMP, TSHR #### [facility] ([id number]) [address] [place] [address] 68390 #### 3051-0 #### [facility] ([id number]) [address] [place] [address] Protein [Mass/Vol] 8.5 g/dL High 6.0-8.0 [facility] Comment on above: Performed By: #### C BCA, CMP, TSHR #### [facility] ([id number]) [address] [place] [address] 26440 #### 3051-0 #### [facility] ([id number]) [address] [place] [address] Sodium [Moles/Vol] 136 mmol/L Normal 134-146 [facility] Comment on above: Performed By: #### C BCA, CMP, TSHR #### [facility] ([id number]) [address] [place] [address] 27004 #### 3051-0 #### [facility] ([id number]) [address] [place] [address] Urea nitrogen [Mass/Vol] 25 mg/dL Normal 5-27 [facility] Comment on above: Performed By: #### C BCA, CMP, TSHR #### [facility] ([id number]) [address] [place] [address] 35768 #### 3051-0 #### [facility] ([id number]) [address] [place] [address] FREE T3on 11-11-2023 Free T3 [Mass/Vol] 3.18 pg/mL Normal 2.50-3.90 [facility] Comment on above: Performed By: #### C BCA, CMP, TSHR #### [facility] ([id number]) [address] [place] [address] 34838 #### 3051-0 #### [facility] ([id number]) [address] [place] [address] TSH WITH REFLEXon 11-11-2023 TSH 0.93 uIU/mL Normal 0.49-4.67 [facility] Comment on above: Performed By: #### C BCA, CMP, TSHR #### [facility] ([id number]) [address] [place] [address] #### 3051-0 #### [facility] ([id number]) [address], [address] [place] [address] CARDIAC ANDREY ADMITon 023 CK [Catalytic activity/Vol] 49 U/L Normal 26-192 [facility] Comment on above: Performed By: #### Juan José SALDANA, CORWIN #### [facility] [address] [address] [address] Amy Pillai CK.MB [Mass/Vol] ng/mL Normal <=3.60 [facility] Comment on above: Performed By: #### Juan José SALDANA, CORWIN #### [facility] [address] [place] [address] Dr. Amy Pillai HSTROP 5.6 pg/mL Normal 4.0-51.3 [facility] Comment on above: Result Comment: CUT- OFF POINTS HAVE BEEN ESTABLISHED BASED ON THE FOURTH UNIVERSAL DEFINITIONS OF MYOCARDIAL INFARCTION. THE UPPER REFERENCE LIMIT (URL) OF TROPONIN, DEFINED THE 99TH PERCENTILE OF cTnI DISTRIBUTION IN A REFERENCE POPULATION, HAS BEEN CONFIRMED THE DECISION THRESHOLD FOR AR DIAGNOSIS. Performed By: #### Juan José SALDANA, SCOTTYDM #### [facility] [address] [place] [address] Dr. Amy Pillai NAZIA 27 ng/mL Normal 9-82 [facility] Comment on above: Performed By: #### Juan José SALDANA, CMADM #### [facility] [address] [place] [address] Dr. Amy Pillai CBC W MANUAL DIFFon 03-20-19 23 ATYPICAL LYMPH # Normal [facility] Comment on above: Performed By: #### Jordan GUEVARA #### [facility] [address] [place] [address] Dr. Amy Pillai ATYPICAL LYMPH % Normal [facility] Comment on above: Performed By: #### Jordan GUEVARA #### [facility] [address] [address] [address] Amy Pillai BAND # 0.0 103/ul Normal 0.0-0.3 [facility] Comment on above: Performed By: #### C PAOLA #### [facility] [address] [place] [address] Dr. Amy Pillai BAND % 0 % Normal 0-5 [facility] Comment on above: Performed By: #### C PAOLA #### [facility] [address] [place] [address] Dr. Amy Pillai BASOM # 0.00 103/ul Normal 0.00-0.10 [facility] Comment on above: Performed By: #### C PAOLA #### [facility] [address] [place] [address] Dr. Amy Pillai BASOM % 0.0 % Critically low 0.2-2.0 [facility] Comment on above: Performed By: #### C PAOLA #### [facility] [address] [place] [address] Dr. Amy Pillai BLAST # Normal [facility] Comment on above: Performed By: #### C PAOLA #### [facility] [address] [place] [address] Dr. Amy Pillai BLAST % Normal [facility] Comment on above: Performed By: #### C PAOLA #### [facility] [address] [place] [address] Dr. Amy Pillai CORRECTED WBC Normal 4.0-11.0 [facility] Comment on above: Performed By: #### C PAOLA #### [facility] [address] [place] [address] Dr. Amy Pillai EOS # 0.00 103/ul Normal 0.00-0.70 [facility] Comment on above: Performed By: #### C PAOLA #### [facility] [address] [place] [address] Dr. Amy Pillai EOS% 0.0 % Critically low 0.9-7.0 [facility] Comment on above: Performed By: #### C PAOLA #### [facility] [address] [address] [address] Amy Pillai HCT 34.9 % Critically low 36.0-48.0 [facility] Comment on above: Performed By: #### C PAOLA #### [facility] [address] [address] [address] Amy Pillai HGB 11.6 g/dl Critically low 12.0-16.0 [facility] Comment on above: Performed By: #### C PAOLA #### [facility] [address] [address] [address] Amy Pillai LYMPHM # 0.74 103/ul Critically low 1.20-3.80 [facility] Comment on above: Performed By: #### C PAOLA #### [facility] [address] [address] [address] Amy Pillai LYMPHM% 11.0 % Critically low 20.5-60.0 [facility] Comment on above: Performed By: #### C PAOLA #### [facility] [address] [address] [address] Amy Pillai MCH 29.2 pg Normal 26.7-34.0 [facility] Comment on above: Performed By: #### C PAOLA #### [facility] [address] [address] [address] Amy Pillai MCHC 33.2 g/dl Normal 29.9-35.2 [facility] Comment on above: Performed By: #### C PAOLA #### [facility] [address] [address] [address] Amy Pillai MCV 87.9 fL Normal 81.0-99.0 [facility] Comment on above: Performed By: #### C PAOLA #### [facility] [address] [address] Dr. Amy Pillai METAMYELOCYTE # Normal [facility] Comment on above: Performed By: #### C PAOLA #### [facility] [address] [address] [address] Amy Pillai METAMYELOCYTE % Normal [facility] Comment on above: Performed By: #### C PAOLA #### [facility] [address] [address] [address] Amy Pillai MONOM# 0.27 103/ul Critically low 0.30-0.80 [facility] Comment on above: Performed By: #### C PAOLA #### [facility] [address] [address] [address] Amy Pillai MONOM% 4.0 % Normal 1.7-12.0 [facility] Comment on above: Performed By: #### C PAOLA #### [facility] [address] [address] [address] Amy Pillai MPV 11.2 fL Normal 9.5-13.5 [facility] Comment on above: Performed By: #### C PAOLA #### [facility] [address] [place] [address] Dr. Amy Pillai MYELOCYTE # Normal [facility] Comment on above: Performed By: #### C PAOLA #### [facility] [address] [address] [address] Amy Pillai MYELOCYTE % Normal [facility] Comment on above: Performed By: #### C PAOLA #### [facility] [address] [address] [address] Amy Pillai NRBC Normal [facility] Comment on above: Performed By: #### C PAOLA #### [facility] [address] [place] [address] Dr. Amy Pillai PLT 259 103/ul Normal 150-450 [facility] Comment on above: Performed By: #### C PAOLA #### [facility] [address] [address] [address] Amy Pillai RBC 3.97 106/ul Critically low 4.20-5.40 [facility] Comment on above: Performed By: #### C PAOLA #### [facility] [address] [place] [address] Dr. Amy Pillai RDW 12.6 % Normal 11.0-15.0 [facility] Comment on above: Performed By: #### C BCMAN #### [facility] [address] [place], [place] [address] Dr. Amy Pillai SEG # 5.70 103/ul Normal 1.40-6.50 [facility] Comment on above: Performed By: #### C BCMAN #### [facility] [address] [place], [place] [address] Dr. Amy Pillai SEG % 85.0 % Critically high 43.0-75.0 [facility] Comment on above: Performed By: #### C BCMAN #### [facility] [address] [place], [place] [address] Dr. Amy Pillai WBC 6.7 103/ul Normal 4.0-11.0 [facility] Comment on above: Performed By: #### C BCMAN #### [facility] [address] FACIAL BONES WO [...] BENJAMIN MAGUIRE Date: 2022-03-20 06:51 Normal [facility] CT HEAD WO CONon 03-20-2022 CT [...] BENJAMIN MAGUIRE Date: 2022-03-20 06:48 Normal [facility] Covid-19 PCR (CVDTB)on 03-03 SARS-CoV-2 (COVID-19) RNA SHANTEL+probe Ql (Unsp spec) Not detected Normal NOT DETECTED [facility] Comment on above: Result Comment: When [...] for this test is supported by the [place] of Health and Human Service's declaration that [...] used). Performed By: #### C VDTBH #### [facility] [address] [place], [place] [address] Dr. Amy Pillai D-DIMERon 03-20-2022 D-DIMER 0.52 mg/L FEU Normal <=0.59 [facility] Comment on above: Performed By: #### D DIM #### [facility] [address] [place], [place] [address] Dr. Amy Pillai D-DIMER COMMENTS SEE BELOW Normal [facility] Comment on above: Result Comment: Incr [...] hospitalization. Performed By: #### D DIM #### [facility] [address] [address] [address] Amy Pillai INFLUENZA A AND B AGon 03-20 INFLUENZA A AG Negative Normal NEGATIVE SEE COMMENT [facility] Comment on above: Performed By: #### I NFLUAB ####[facility] [address] [address] Amy Pillai INFLUENZA B AG Negative Normal NEGATIVE SEE COMMENT [facility] Comment on above: Performed By: #### I NFLUAB ####[facility] [address] [place], [place] [address]Dr. Amy Pillai LACTATE/LACTIC ACIDon 2022 Lactate [Moles/Vol] 1.1 mmol/L Normal 0.4-1.9 [facility] Comment on above: Performed By: #### L ACT #### [facility] [address] [place] [address] Dr. Amy Pillai PROF CHEM 8 (BAS METB)on Anion gap [Moles/Vol] 14.0 mmol/L Normal [facility] Comment on above: Performed By: #### B CORWIN SALDANA #### [facility] [address] [place] [address] Dr. Amy Pillai Calcium [Mass/Vol] 9.4 mg/dL Normal 8.5-10.1 [facility] Comment on above: Performed By: #### B CORWIN SALDANA #### [facility] [address] [place] [address] Dr. Amy Pillai Chloride [Moles/Vol] 101 mmol/L Normal 98-107 [facility] Comment on above: Performed By: #### B CORWIN SALDANA #### [facility] [address] [address] [address] Amy Pillai CO2 [Moles/Vol] 24.0 mmol/L Normal 21.0-32.0 [facility] Comment on above: Performed By: #### B MP, CMADM #### [facility] [address] [address] [address] Amy Pillai Creatinine [Mass/Vol] 0.93 mg/dL Normal 0.55-1.02 [facility] Comment on above: Performed By: #### B MP, CMADM #### [facility] [address] [address] [address] Amy Pillai EGFR-AF EAST [place] >60 Normal >=60 [facility] Comment on above: Performed By: #### B MP, CMADM #### [facility] [address] [address] [address] Amy Pillai EGFR-NON AF [place] 60 mL/min/1.73m2 Normal >=60 [facility] Comment on above: Performed By: #### B MP, CMADM #### [facility] [address] [address] [address] Amy Pillai Glucose [Mass/Vol] 169 mg/dL Critically high 74-106 [facility] Comment on above: Performed By: #### B MP, CMADM #### [facility] [address] [address] [address] Amy Pillai Potassium [Moles/Vol] 4.0 mmol/L Normal 3.5-5.1 [facility] Comment on above: Performed By: #### B MP, CMADM #### [facility] [address] [address] [address] Amy Pillai Sodium [Moles/Vol] 135 mmol/L Critically low 136-145 [facility] Comment on above: Performed By: #### B MP, CMADM #### [facility] [address] [address] [address] Amy Pillai Urea nitrogen [Mass/Vol] 12.0 mg/dL Normal 7.0-18.0 [facility] Comment on above: Performed By: #### B LES, CORWIN #### [facility] [address] [address] [address] Amy Pillai Urea nitrogen/Creatinine [Mass ratio] 12.9 mg/mg Normal [facility] Comment on above: Performed By: #### B LES, CORWIN #### [facility] [address] [place], [place] [address] Dr. Amy Pillai XR CHEST 2 Von [...] by: BENJAMIN MAGUIRE Date: 2022-03-20 06:44 Normal [facility] MAMM SCREEN 3D MELECIO CADon 05-29-2021 MG MAMM SCREEN 3D MELECIO CAD Patient: CHIQUITA FARFAN Exam Date: 05/29/2021 : 1955 Gender:F Ordering : DR JUVE OLSON Admission #: [id number] Family : Order #: [id number] CLICK HERE TO VIEW EXAM RADIOLOGY REPORT [...] Treatments None Family Cancers None LOCATION: [facility] BREAST COMPOSITION: Heterogeneously dense,which may obscure [...] M.D. on 05/29/2021 at 15:40 Normal [facility] General Surgery Office/Clini c Noteon 11-22-2019 General Surgery Office/Clinic Note Chief Complaint self referral for ABD pain HPI Staff 64 year old female presents on self referral from [facility] ED for complaint of abdominal pain. [...] back pain, recently seen in ED at [facility] for constipation and mid/LLQ crampy abdominal [...] type 2: Mother and Brother. Hypertension: Mother. [facility] Comment on above: Result Comment: Elec tronically Signed By: ALY ELIAS, Carl Glaser\Date and Time Signed: 11/22/19 16:04 EDT Facesheeton 11-15-2019 Facesheet [id number] .00CD:127 [facility] Ambulatory Clinical Summaryo n 11-12-2019 Ambulatory Clinical Summary {[id number]}CD:[id number] [facility] ED Note-Physicianon 11-11-19 20 ED Note-Physician [id number] .00CD:127 [facility] RAD - CT Reporton 11-11-2019 RAD - CT Report [id number] .00CD:127 [facility] MAGR Preoperative Recordon 0 08-04-2018 MAGR Preoperative Record MAGR Pre-Op Record Summary Primary Physician: Madan Leal DO Finalized Date/Time: 08/04/18 09:26:06 Pt. Name: CHIQUITA FARFAN /Sex: 1955 FEMALE Med Rec #: [id number] Physician: Madan Leal DO Financial #: [id number] Pt. Type: D Room/Bed: [facility] Admit/Disch: 07/22/18 11:48:00 - 07/22/18 17:40:00 Institution: [...] Signed By: Halley Hinkle RN 08/04/18 09:26 Normal [facility] Coding Summaryon 07-29-2018 Coding Summary CODING DATE: 07/29/2018 [facility] STATUS: Home PAYOR: Medicare MC APC [...] Paige Fernandes Date Saved: 07/29/2018 07:14 am [facility] Consent Formson 07-24-2018 Consent Forms [id number]. 00[facility] History and Physicalon 07-24 History and Physical [id number]. [facility] Outside Recordson 07-24-2018 Outside Records [id number]. [facility] Provider Orderson 07-24-2018 Protein mass conc [id number]. [facility] MAGR Postoperative Recordon 07-23-2018 MAGR Postoperative Record MAGR Phase II Record Summary Primary Physician: Madan Leal DO Finalized Date/Time: 07/23/18 10:35:15 Pt. Name: CHIQUITA FARFAN/Sex: 1955 FEMALE Med Rec #: [id number] Physician: Madan Leal DO Financial #: [id number] Pt. Type: D Room/Bed: [facility] Admit/Disch: 07/22/18 11:48:00 - 07/22/18 17:40:00 Institution: [...] discharge instructions. General Comments: CARE PER 2 [facility] NURSING STAFF Finalized By: Sharmila Grover RN Document Signatures Signed By: Sharmila Grover RN 07/23/18 10:35 Normal [facility] Anesthesia Noteon 07-22-2018 Anesthesia Note Patient: CHIQUITA [...] history): All Problems Hypertension / SNOMED CT 7654573875 / Confirmed Histories Family History: No family history items have been selected or recorded. Procedure history: Hysterectomy ([id number]). Social History Alcohol Assessment Use: Past. Tobacco Assessment Never (less than 100 in lifetime) Tobacco Use:. Substance Abuse Assessment Substance use: Never. . Physical Examination VS/Measurements Vital Signs (last 24 hrs) Last Charted Heart Rate Peripheral 92 bpm (JULY 22:) Resp Rate 18 br/min (JULY 22:) SBP H 170mmHg (JULY 22:) DBP H 98mmHg (JULY 22:) SpO2 99 % (JULY 22:) Weight 92.900 kg (JULY 22:) Height 166.37 cm (JULY 22:) General: Alert and oriented, No acute distress. Airway: Mallampati classification: II (soft palate, fauces, uvula visible). Mouth: Within normal limits. Respiratory: Respirations are non-labored. Review / Management Laboratory Results ECG interpretation: Normal sinus rhythm. Plan [place] [employer]#( A) physical status classification: Class II. Anesthetic Preoperative Plan Anesthesia: Monitored anesthesia care. Anesthetic plan, risks, benefits, and alternatives discussed with the patient and/or family. Patient verbalized understanding. Family/Guardian present. Informed consent was given. Consent was signed by the patient. [Electronically Signed on: 07/22/2018 14:59 EDT] Vinny Eli MD [Verified on: 07/22/2018 14:59 EDT] Vinny Eli MD [facility] Education Noteon 07-22-2018 Education Note Education Materials [...] or concerns, please call the office at [phone] -Follow up as scheduled Normal [facility] Inpatient Patient Summaryon 07-22-2018 Inpatient Patient Summary [address] [id number] Patient Discharge Instructions Name: CHIQUITA FARFAN : [birth year] Patient Address: [address] [place] [place] [address] Primary Care Provider: Name: JEFFERY HERMAN After you are discharged if you find you have any questions, please, call [phone] ext [phone] to speak to a nurse. Discharge Diagnosis: [...] business decisions or sign any legal documents [facility] would like to thank you for allowing us to assist you with your healthcare needs. The following includes patient education materials and information regarding your injury/illness. CHIQUITA FARFAN has been given the following list of follow-up instructions, prescriptions, and patient education materials: Follow-up Instructions With: Address: When: Madan Leal [address] [place] [address], [address] [place] [address] Business (2) In 13 days 08/04/18 With: Address: When: JEFFERY HERMAN [address] [place] [address], [address] [place], [place] [id number] Business (1) Medications During the course of [...] or concerns, please call the office at [phone] -Follow up as scheduled Viruses or Bacteria [...] for Disease Control and Prevention November 2013 [facility] MAGR Intraoperative Recordon 07-22-2018 MAGR Intraoperative Record MAGR Intra-Op Record Summary Primary Physician: Madan Leal DO Finalized Date/Time: 07/22/18 16:05:48 Pt. Name: CHIQUITA FARFAN /Sex: 1955 FEMALE Med Rec #: [id number] Physician: Madan Leal DO Financial #: [id number] Pt. Type: D Room/Bed: [facility] Admit/Disch: 07/22/18 11:48:00 - Institution: Case Times [...] Andrew DO Role Performed Surgeon - Primary Instrument Person Instrument Person Time In 07/22/18 15:00:00 07/22/18 15:00:00 07/22/18 15:00:00 Time Out 07/22/18 15:50:00 07/22/18 15:50:00 07/22/18 15:50:00 Procedure Kyphoplasty Kyphoplasty Kyphoplasty Last Modified By: Sharmila Grover RN, Barbara RN Long, Barbara RN 07/22/18 15:50:46 07/22/18 15:50:46 07/22/18 15:50:46 Entry 4 Entry 5 Entry 6 Case Attendee Georgia Nair Linda M Calmes, Luke T Role Performed Scrub Personnel Instrument Person Continuous Pickling Line Pickler Time In 07/22/18 15:00:00 07/22/18 15:00:00 07/22/18 15:00:00 Time Out 07/22/18 15:50:00 07/22/18 15:50:00 07/22/18 15:50:00 Procedure Kyphoplasty Kyphoplasty Kyphoplasty Last Modified By: Sharmila Grover RN, Barbara RN Long, Barbara RN 07/22/18 15:50:46 07/22/18 15:50:46 07/22/18 15:50:46 Entry 7 Entry 8 Case Attendee Candelaria Hall Jenna Role Performed Continuous Pickling Line Pickler Continuous Pickling Line Pickler Time In 07/22/18 15:00:00 07/22/18 15:00:00 Time [...] Dose Volume 20 mL 50 mL By ElvisMadan jarrell James Andrew DO Andrew DO Outcome Met [...] 15:40:00 BONE CEMENT Date/Time Implanted/Explanted Madan Leal [employer] By: Barak JEROME Lot Number [id number] Expiration Date 04/30/20 Implant Usage Data Site Back Quantity 1 Bpm Developer Sterility Outcome Met (O.30) Yes Last Modified [...] Signed By: Sharmila Grover RN 07/22/18 16:05 Normal [facility] Operative Report - Surgeon/P carlotta 07-22-2018 Operative Report - Surgeon/Physician Procedure: Kyphoplasty T12 cavity creation with the balloon and then cement augmentation Pre Op Diagnosis: Osteoporotic compression fracture M80.08XA Compression fracture T12 Post Op Dianosis: Osteoporotic compression fracture M80.08XA Compression fracture T12 Surgeon: Dr. Silvina Leal, Anesthesia: Conscious sedation with local Indication for [...] None [Electronically Signed on: 07/22/2018 16:01 EDT] aMdan Leal DO [Verified on: 07/22/2018 16:01 EDT] Madan Leal DO [facility] XR Fluoro Surgeryon 07-23-19 19 XR Fluoro [...] Alli Dunaway MD 07/23/18 7:26 am Technologist: Silvina SALAS [facility] XR Spine Thoracic 2 Viewson [...] Alli Dunaway MD 07/23/18 7:26 am Technologist: Silvina SALAS [facility] Coding Summaryon 07-20-2018 Coding Summary CODING DATE: 07/20/2018 [facility] STATUS: Home PAYOR: Medicare MC APC [...] Kimberly Wilson Date Saved: 06/30/2018 01:44 pm [facility] Coding Summaryon 06-30-2018 Coding Summary CODING DATE: 06/30/2018 [facility] STATUS: Home PAYOR: Medicare MC APC [...] Kimberly Wilson Date Saved: 06/30/2018 01:44 pm [facility] Anesthesia Noteon 06-26-2018 Anesthesia Note Patient: CHIQUITA [...] the NTG and refered her to a group care worker for stress testing in 08/2017. She did [...] history): All Problems Hypertension / SNOMED CT [id number] / Confirmed Histories Family History: No family history items have been selected or recorded. Procedure history: Hysterectomy ([id number]). Social History Alcohol Assessment Use: Past. Tobacco [...] br/min (JUN 26:34) SBP H 161mmHg (JUN 26:34) DBP 90 mmHg (JUN 26:) SpO2 96 % (JUN 26:) Weight 94.700 kg (JUN 26:34) Height 166.37 cm (JUN 26:34) Review / Management Laboratory Results Plan Anesthetic Preoperative Plan Patient verbalized understanding. I discussed with the patient the need for a cardiac evaluation before proceeding with the surgery. If the surgery would be required sooner on an urgent basis she would need to have the surgery done at a facility with a supervisor labor gang and an school admissions representative. . [Electronically Signed on: 06/26/2018 12:11 EDT] Benjamin Fajardo DO [Verified on: 06/26/2018 12:11 EDT] Benjamin Fajardo DO [facility] Progress Note - Nurseon 04- Protein mass conc Spoke with Duarte at Dr. Herman's office in regards to a cardiology consult that is needed for surgery clearance. Verbalized understanding. Duarte will let pt know once she gets her an appointment. [Electronically Signed on: 06/26/2018 13:30 EDT] Ruma Pérez RN [Verified on: 06/26/2018 13:30 EDT] Ruma Pérez RN [facility] Vital Signs Date Time Vital Sign Value Performing Clinician Facility 06-11-2024 11:17-0400 Body height 165.1 cm Rosas Connors MD Work Phone: [facility] 06-11-2024 11:17-0400 Body mass index (BMI) [Ratio] 32.52 kg/m2 Rosas Connors MD Work Phone: [facility] 06-11-2024 11:17-0400 Body temperature 97.5 [degF] Rosas Connors MD Work Phone: [facility] 06-11-2024 11:17-0400 Body weight 88.63 kg Rosas Connors MD Work Phone: [facility] 06-11-2024 11:17-0400 Diastolic blood pressure 83 mm[Hg] Rosas Connors MD Work Phone: [facility] 06-11-2024 11:17-0400 Heart rate 85 /min Rosas Connors MD Work Phone: [facility] 06-11-2024 11:17-0400 Respiratory rate 18 /min Rosas Connors MD Work Phone: [facility] 06-11-2024 11:17-0400 SaO2% (BldA) [Mass fraction] 100 % Rosas Connors MD Work Phone: [facility] 06-11-2024 11:17-0400 Systolic blood pressure 151 mm[Hg] Rosas Connors MD Work Phone: [facility] 10-23-2023 15:38-0400 Body height 165.1 cm Guerda Carrillo DPM Work Phone: [facility] 10-23-2023 15:38-0400 Body mass index (BMI) [Ratio] 32.78 kg/m2 Guerda Carrillo DPM Work Phone: [facility] 10-23-2023 15:38-0400 Body weight 89.36 kg Guerda Carrillo DPM Work Phone: [facility] Healthcare Encounters Encounter Date Encounter Type Care Provider Facility Start: 06-11-2024 End: 06-11-2024 ambulatory [facility] Start: 06-11-2024 End: 06-11-2024 Documentation procedure Jhon Ortega [facility] Start: 06-11-2024 End: 06-11-2024 Office outpatient new 45 minutes Rosas Connors MD Work Phone: [facility] Comment on above: Monoclonal gammopath y (Primary Dx); Elevated blood protein Start: 06-11-2024 End: 06-11-2024 ambulatory [facility] Start: 11-11-2023 End: 11-11-2023 [facility] Start: 10-23-2023 End: 10-23-2023 Office outpatient visit 25 minutes Guerda Carrillo DPM Work Phone: [facility] Comment on above: Plantar fasciitis, b ilateral (Primary Dx); Type II or unspecified type diabetes mellitus with neurological manifestations, not stated as uncontrolled(250.60) (CMS/HCC); Gastrocnemius equinus of right lower extremity; Gastrocnemius equinus of left lower extremity Start: 10-23-2023 End: 10-23-2023 ambulatory GUERDA CARRILLO Not Available Start: 10-23-2023 End: 10-23-2023 Bamboo flowsheet Guerda Carrillo DPM Work Phone: [facility] Start: 10-23-2023 End: 10-23-2023 Bamboo flowsheet Guerda Carrillo DPM Work Phone: [facility] Start: 03-20-2022 End: 03-20-2022 ambulatory SADI ROSAS Facility: Start: 05-29-2021 End: 05-30-[address] JUVE OLSON Facility: Start: 08-08-2017 End: 08-09-2017 Ambulatory DEFAULT PHYSICIAN Facility:[facility] Plan of Treatment Date Care Activity Detail Author Start: 06-11-2025 Adult BMI Screening Adult BMI Screen ing [facility] Start: 06-11-2025 Tobacco Screening Tobacco Screening [facility] Start: 11-01-2024 Influenza vaccination Influenza Vacc ine [facility] Start: 09-10-2024 End: 06-11-2025 CBC W Auto Differential panel - Blood CBC with auto diff Lab Routine Hyperproteinemia Expected: 09/10/2024 (Approximate), Expires: 06/11/2025 [facility] Comment on above: Expected: 09/10/2024 (Approximate), Expires: 06/11/2025 Start: 09-10-2024 End: 06-11-2025 Comprehensive metabolic 2000 panel - Serum or Plasma Comprehensive metabolic panel Lab Routine Hyperproteinemia Expected: 09/10/2024 (Approximate), Expires: 06/11/2025 [facility] Comment on above: Expected: 09/10/2024 (Approximate), Expires: 06/11/2025 Start: 09-10-2024 End: 06-11-2025 Free light chains Free light chains Lab Routine Hyperproteinemia Expected: 09/10/2024 (Approximate), Expires: 06/11/2025 [facility] Comment on above: Expected: 09/10/2024 (Approximate), Expires: 06/11/2025 Start: 09-10-2024 End: 06-11-2025 Protein electrophoresis, serum Protein electrophoresis, serum Lab Routine Hyperproteinemia Expected: 09/10/2024 (Approximate), Expires: 06/11/2025 [employer] Work Phone: Comment on above: Expected: 09/10/2024 (Approximate), Expires: 06/11/2025 Start: 09-10-2024 End: 06-11-2025 Serum Immunofixation Serum Immunofixation Lab Routine Hyperproteinemia Expected: 09/10/2024 (Approximate), Expires: 06/11/2025 [facility] [place] [facility] Comment on above: Expected: 09/10/2024 (Approximate), Expires: 06/11/2025 Start: 09-10-2024 End: 09-10-2024 Patient encounter procedure 09/10/2024 1:30 PM EDT Office Visit [facility] - Medical Oncology [address] [place] [phone] Rosas Connors MD [address] [facility] [address] [place] [address] [facility] - [facility] Oncology Start: 06-11-2024 End: 06-11-2025 XR Bones Complete Survey Views X-ray osseous survey complete Imaging Routine Hyperproteinemia Expected: 06/11/2024, Expires: 06/11/2025 [facility] Comment on above: Expected: 06/11/2024 , Expires: 06/11/2025 Start: 11-18-2023 End: 11-18-2023 Patient encounter procedure 11/18/2023 9:30 AM EDT Office Visit [facility] [address] [place] [phone] Guerda Carrillo, DPM [address] [place], [place] [phone] [facility] Start: 11-02-2023 COVID-19 Vaccine ( season) COVID-19 Vaccine ( season) [facility] Start: 11-02-2023 Influenza vaccination Influenza Vacc ine (#1) [facility] Start: 10-23-2023 End: 10-23-2023 Patient encounter procedure 10/23/2023 3:30 PM EDT Office Visit [facility] [address] [phone] Guerda Carrillo, DPM [address] [place], [place] [phone] Arrived [facility] Comment on above: Arrived Start: 2018 Fall Risk Screening Fall Risk Screen [facility] Start: 2018 Pneumococcal Vaccine : 65+ Years (1 of 1 - PCV) Pneumococcal Vaccine: 65+ Years (1 of 1 - PCV) [facility] Start: 2003 Administration of varicella zoster vaccine Zoster (Shingles) Vaccine (1 of 2) [facility] Start: 1993 Screening for malign ant neoplasm of breast Mammogram [facility] Start: 1972 DTaP,Tdap and Td Vaccines (1 - Tdap) DTaP,Tdap and Td Vaccines (1 - Tdap) [facility] Start: 1971 Adult BMI Follow Up Plan Adult BMI F ollow Up Plan [facility] Start: 1965 Depression Screening Depression Scre ening [facility] Start: 1953 Medicare Annual Well ness (AWV) Medicare Annual Wellness (AWV) [facility] Start: 1953 Screening for malign ant neoplasm of colon [facility] Payers Date Payer Category Payer Medicare HMO [employer] [id number] 2023 Unknown 2020 Unknown [id number] 1959 Medicare [id number] 1955 Unknown [id number] 1953 Unknown [id number] 1953 Unknown [id number] 1953 Unknown [id number] 1953 Unknown [id number] 1953 Unknown [id number] Social History Date Type Detail Facility Start: 08-11-2019 End: 10-23-2023 Tobacco smoking status KSIS Never smoked tobacco [facility] Start: 10-23-2023 Alcoholic beverage intake Lifetime non-drinker (finding) [facility] Start: 04-13-2020 End: 10-23-2023 History of Social function [facility] Start: 04-13-2020 End: 10-23-2023 Tobacco use panel [facility] Start: 1955 Sex assigned at Not on file N [facility] Tobacco smoking stat [facility] Tobacco smoking consumption unknown [facility] Start: 08-11-2019 Tobacco use and exposure Smokeless tobacco non-user [facility] Start: 06-11-2024 Alcoholic beverage intake Ex-drinker (finding) [facility]care [facility] Start: 10-06-2014 Sex Female (finding) [facility] Medical Equipment Procedure Code Equipment Code Equipment Origin al Text Equipment Identifier Dates Lens Iol Ultrase rt 24.5d - [id number] - [id number] Start: 08-17-2019 Start: 03-25-2024 History of Present illness Narrative 06-11-2024 Jhon Lemon RN - 06/11/2024 11:57 AM EDT Note Date & Type Note Facility 06-11-2024 History of Presen t illness Narrative New patient visit for hyperproteinemia. Orders received per Dr. Connors: In 3 months, check SPEP, IFX, FREE light chain, CBC, CMP. Osseous survey maninder. F/u in 3 months. Labs ordered. Osseous survery ordered. F/u scheduled 09/10/24 @ 1330. Pt v/u of instruction. documented in this encounter [facility] History of Present illness Narrative 06-11-2024 Rosas Connors MD - 06/11/2024 11:30 AM EDT Note Date & Type Note Facility 06-11-2024 History of Present illness Narrative Images from the original note were not included. [facility] 06/11/24 Chiquita Farfan is a 69 y.o. year old female seen today in the oncology clinic. Chief Complaint Patient presents with New Patient History of Present Illness: Mrs. Farfan is a 69 y.o. female who is referred to Hematology Clinic for abnormal protein found in recent blood work. Her serum protein electrophoresis showed a M spike of 1.2 g/dl. The patient complains about chronic back pain. No new bone pains recurrent infection or new constitutional symptoms. She is at her usual state of health. The patient denies family history of malignancy. She is up-to-date with her mammogram and colonoscopy screening. Past Medical History: Diagnosis Date Cataract Dizziness Glaucoma Hypertension Past Surgical History: Procedure Laterality Date BACK SURGERY BREAST BIOPSY EYE SURGERY HYSTERECTOMY 2004 PHACO KELMAN I IMPLANT INTRAOCULAR LENS Left 08/17/2019 Performed by Bessy Acosta MD at [facility] SMALL [facility]TESTINE SURGERY Family History Problem Relation Age of Onset Hypertension Mother Diabetes Mother Glaucoma Mother Diabetes Brother Social History Socioeconomic History Marital status: Single Tobacco Use Smoking status: Never Smokeless tobacco: Never Vaping Use Vaping status: Never Used Substance and Sexual Activity Alcohol use: Not Currently Drug use: Never Sexual activity: Defer No Known Allergies Medication List Accurate as of June 11, 2024 12:11 PM. If you have any questions, ask your nurse or doctor. Medications Continued This Visit amLODIPine 10 mg tablet Refills: 0 Commonly known as: NORVASC cinnamon bark extract 500 mg tablet Refills: 0 irbesartan 150 mg tablet Refills: 0 Dose: 150 mg Commonly known as: AVAPRO latanoprost 0.005 % ophthalmic solution Refills: 0 Dose: 1 drop Commonly known as: XALATAN meclizine 25 mg tablet Refills: 0 Dose: 25 mg Commonly known as: ANTIVERT metFORMIN 850 mg tablet Refills: 0 Commonly known as: GLUCOPHAGE metoprolol succinate XL 50 mg 24 hr tablet Refills: 0 Dose: 50 mg Commonly known as: TOPROL XL ONETOUCH DELICA PLUS LANCET 33 gauge misc Refills: 0 Generic drug: lancets ONETOUCH ULTRA TEST strip Refills: 0 Generic drug: blood sugar diagnostic rosuvastatin 10 mg tablet Refills: 0 Commonly known as: CRESTOR timolol 0.25 % ophthalmic solution Refills: 0 Commonly known as: TIMOPTIC TYLENOL EXTRA STRENGTH 500 mg tablet Refills: 0 Generic drug: acetaminophen Review of Symptoms: Review of Systems ECO- Symptomatic; fully ambulatory Physical Exam: General: Well appearing, in no acute distress. Vitals: BP 151/83 Pulse 85 Temp 36.4 C (97.5 F) (Oral) Resp 18 Ht 165.1 cm (5' 5 ) Wt 88.6 kg (195 lb 6.4 oz) SpO2 100% BMI 32.52 kg/m Body mass index is 32.52 kg/m . Eyes: No icterus, no conjuctival erythema ENT: Pharyngeal mucosa was moist without exudate and inflammation or ulcerations. Tongue was midline and appeared normal.Gums were unremarkable. Lymph nodes: No palpable adenopathy Neck: Supple. There were no masses, tenderness. Trachea was midline. Respiratory: Respirations were non-labored. Lungs were clear to auscultation. There was no dullness to percussion. Cardiac: Regular rate and rhythm, S1 and S2 sounds were normal. There were no rubs or gallops. Abdomen: Soft, non-tender, Nondistended. Bowel sounds audible in all four quadrants. There were no palpable masses. The liver and spleen were not enlarged. Extremities: There was no clubbing, Cyanosis, edema. Skin: There was no obvious rashes, bruising or ecchymosis. Back exam: No palpable tenderness was appreciated. Neurologic: There was no unilateral weakness. Mood and affect: Normal. Recent Imaging: No results found. Recent Labs: No results found for this or any previous visit (from the past 2 weeks). Diagnosis Problem list: Problem List Items Addressed This Visit None Impression: Monoclonal gammopathy 1.2 g/dl 04/2024 Plan: I reviewed the patient's CMP in the past, she has been having slightly elevated protein level at 8.5 since November 2023. Most recent protein electrophoresis showed a M spike of 1.2 g/dL. Her CBC CMP shows no at organ damage. 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 In 3 months, check SPEP, IFX, FREE light chain, CBC, CMP. Osseous survey maninder. F/u in 3 months. Thank you. Rosas Connors MD Please note that portions of this note were generated using voice recognition M*Modal dictation software. Although every effort was made to ensure the accuracy of this automated school admissions representative, some errors in school admissions representative may have occurred. CC: Patient Care Team: DEAN John as PCP - General (Family Medicine) PCP:PAULA MURPHY Referring MD: Paula Murphy APRN-FNP documented in this encounter [facility] Instructions 06-11-2024 Patient Instructions Note Date & Type Note Facility 06-11-2024 Instructions Rosas Connors MD - 06/11/2024 11:30 AM EDT In 3 months, check SPEP, IFX, FREE light chain, CBC, CMP. Osseous survey maninder. F/u in 3 months. [facility] History of Present illness Narrative 10-23-2023 Guerda [...] 3 months. BS 136 A1C 6.1 Jacklyn Rumschlag 06/18/2023 SS ). HPI Patient presents complaining [...] with neurological manifestations, not stated as uncontrolled(250.60) (CMS/[facility]) E11.49 3. Gastrocnemius equinus of right lower [...] Guerda Carrillo DPM documented in this encounter [facility] Evaluation note Note Date & Type Note Facility Evaluation note Diagnosis Plantar fasciitis, bilateral- Primary Type II or unspecified type diabetes mellitus with neurological manifestations, not stated as uncontrolled(250.60) (CMS/HCC) Type II or unspecified type diabetes mellitus with neurological manifestations, not stated as uncontrolled Gastrocnemius equinus of right lower extremity Gastrocnemius equinus of left lower extremity documented in this encounter [facility] Evaluation note Note Date & Type Note Facility Evaluation note Diagnosis Monoclonal gammopathy- Primary Monoclonal paraproteinemia Elevated blood protein Other disorders of plasma protein metabolism documented in this encounter [facility] Evaluation note Note Date & Type Note Facility Evaluation note Diagnosis Hyperproteinemia- Primary Other disorders of plasma protein metabolism documented in this encounter [facility] Instructions Note Date & Type Note Facility Instructions Not on filedocumented in this en counter [facility] Summary Purpose Family History No Family History Records FoundNo Family History Records FoundNo Family History Records FoundNo Family History Records FoundNo Family History Records FoundNo Family History Records Found Advance Directives No Advanced Directives Records FoundNo Advanced Directives Records FoundNo Advanced Directives Records FoundNo Advanced Directives Records FoundNo Advanced Directives Records FoundNo Advanced Directives Records Found Hospital Course Note [facility] Clinical Discharge Summary PERSON INFORMATION Name CHIQUITA FARFAN Age 63 Years 51 Sex FEMALE Language Kiswahili PCP JEFFERY HERMAN Marital Status Single Med Service Ambulatory Surgery Acct# Arrival 07/22/18 11:48:00 Visit Reason surgery - KYPHOPLASTY T12 Acuity LOS Address: [address] [place] [address] Comment: PROVIDER INFORMATION VITALS INFORMATION Vital Sign [...] section and content) DATE CREATED AUTHOR 08/19/2017 [facility] DATE CREATED AUTHOR AUTHOR'S ORGANIZ ATION 08/09/2018 [facility] DATE CREATED AUTHOR AUTHOR'S ORGANIZ ATION 11/23/2019 [facility] DATE CREATED AUTHOR AUTHOR'S ORGANIZ ATION 03/21/2022 [facility] pital DATE CREATED AUTHOR AUTHOR'S ORGANIZ ATION 10/25/2023 [facility] EPIC DATE CREATED AUTHOR AUTHOR'S ORGANIZ ATION 06/17/2024 [facility] Reason for Visit (unrecogniz ed section and content) Reason Comments DM Foot Care Chiquita Farfan 68yo Patient presents for Diabetic Foot check, patient relates her heels burn. Sensation started 3 months. BS 136 A1C 6.1 Jacklyn Fowler 06/18/2023 SS Reason Comments New Patient Care Teams (unrecognized sec tion and content) Portfolio Consultant Relationship Specialty Start Date End Date Unallocated, Dean Mensah MD [address] [place] [address] PCP - General Family Medicine 02/12/23 Shannan Garvey MD [address] [place] [address] PCP - [facility] 03/03/23 Portfolio Consultant Relationship Specialty Start Date End Date Unallocated, MD [address] [place] [address] PCP - General Family Medicine 02/12/23 Shannan Garvey MD [address] [place] [address] PCP - [facility] 03/03/23 Portfolio Consultant Relationship Specialty Start Date End Date Paula Murphy [facility] [address] [place], [place] [phone] PCP - [facility] 11/11/23 Portfolio Consultant Relationship Specialty Start Date End Date Paula Murphy ROUTE SALES SPECIALISTST. [facility] [address] [place], [place] [phone] PCP - [facility] 11/11/23 FOR RECORDS PERTAINING TO PATIENTS WHO ARE [...] BE BASED ON THE PRIMARY CLINICAL RECORDS. [facility]. provides no warranty or guarantee of the accuracy or completeness of information in this document.
[2024-07-19] MEDS: REGADENOSON 0.4 MG/5 ML SYRINGE IV (12:40)
--- NOTE | 2024-07-19 17:43 | P.STRESS_ITS ---
Stress Test Stress Test Allergies Allergy/AdvReac Type Severity Reaction Status Date / Time No Known Drug Allergies Allergy Verified 03/29/24 10:01 Requesting physician: Ivan Romeo Procedure: This was a Lexiscan stress test with myocardial perfusion imaging performed at the [facility] on 07/19/2024. Intravenous line was secured. The patient was attached to electrocardiographic monitoring. Baseline vital signs and ECG were obtained. Lexiscan 0.4 mg was administered intravenously followed by administration of Cardiolite. The patient then went on to obtain myocardial perfusion imaging. Resting heart rate was 61 bpm and peak heart rate was 107 bpm. Resting blood pressure was 142/85 and maximum blood pressure was 144/78. General Information: Reason for Stress Test: Chest pain, shortness of breath, palpitations. Cardiac History and Risk Factors: Hypertension, diabetes, hyperlipidemia. Resting 12 - Lead Electrocardiogram: Normal sinus rhythm with sinus arrhythmia. Stress Test: Protocol: Lexiscan stress test with myocardial perfusion imaging. Exercise Capacity: Not assessed. Blood Pressure Response: Resting hypertension. Rhythm: Sinus rhythm with occasional PVCs. ST - Response: No ischemic ST changes seen. Patient Response: Chest pressure. Interpretation: 1. No evidence of ischemic ECG changes seen following infusion of Lexiscan. 2. Myocardial perfusion images will be reported separately.
== END 2024-07-19 10:22 | disposition home or self-care (01) ==
LOC: NM 10:21
PROVIDERS: PCP Family Medicine; Visit Provider Family Medicine
DX: R06.00 Dyspnea, unspecified (principal)
CPT/HCPCS: 78452; 93017; A9500; J2785

== ENCOUNTER 2024-09-29 09:43 | Outpatient (OUT) | payer OTHER, SELFPAY ==
--- OUTSIDE RECORDS SUMMARY | 2024-08-08 11:06 | XMS_ITS ---
Author Organization [facility] [place] Address [address] [place] [address] Care Team Providers Care Firer Bisque Kiln Name Role Phone AguedaCarter Primary Care Provider REASON FOR VISIT review DEXA Problems Problem Type SNOMED Code ICD Code Onset Dates Problem Status W/U Status Risk Notes Problem Osteopenia (364348282) Osteopenia (M85.80) Active confirmed Encounters Encounter Location Date Provider Diagnosis [facility] [address] [place] [address] 08/08/2024 Carter Romeo Plan Of Treatment No Information Progress Notes * Chiquita FARFAN FDOB:1955 (69 yo F)Acc No.[id number]:08/08/2024 Patient: Chiquita MAX :1955 A ge:69 Y S ex:Female Address:[address] [facility] * true * Date: Generated for Elenita medellin/Bianca/eTransmitting on: 0 09/29/2024 09:45 AM EDT
--- OUTSIDE RECORDS SUMMARY | 2024-08-09 12:05 | XMS_ITS ---
Author Organization [facility] [place] Address [address] [place] [address] Care Team Providers Care Manager Of Financial Reporting Name Role Phone Agueda Carter Primary Care Provider REASON FOR VISIT add calcium and vit d Medications Medication SIG (Take, Route, Frequency, Duration) Notes Start Date End Date Status Calcium 600 MG 1 tablet with meals Orally Twice a day for 30 days 08/09/2024 Active Vitamin D 50 MCG (2000 UT) 1 tablet Oral ly Once a day for 30 days 08/09/2024 Active Encounters Encounter Location Date Provider Diagnosis [address] [phone] 08/09/2024 Carter Agueda Plan Of Treatment Medication Medication Name Sig Start Date Stop Date Notes Calcium 600 MG 1 tablet with meals Orally Twice a day for 30 days 08/09/2024 Vitamin D 50 MCG (2000 UT) 1 tablet Oral ly Once a day for 30 days 08/09/2024 Progress Notes * Chiquita FARFAN FDOB:1955 (69 yo F)Acc No.[id number]:08/09/2024 Patient: Chiquita MAX :1955 A ge:69 Y S ex:Female [address] [address] [address] [place], * Refills Start Calcium Tablet, 600 MG, Orally, 60, 1 tablet with meals, Twice a day, 30 days Start Vitamin D Tablet, 50 MCG (1999 UT), Orally, 30, 1 tablet, Once a day, 30 days * true * Date: Generated for Elenita medellin/Bianca/Esperanza on: 0 09/29/2024 09:45 AM EDT
--- OUTSIDE RECORDS SUMMARY | 2024-09-22 06:15 | XMS_ITS ---
Author Organization [facility] vices Address [address] [facility] [place] [phone] Care Team Providers Care Sizer Hand Name Role Phone Thu Haji Primary Care Provider Heidi Worthy [phone] REASON FOR VISIT 6 month DM2 Social History Sex Assigned At : Social History Observation Description Sex Assigned At Female Encounters Encounter Location Date Provider Diagnosis Main [address] [place], [place] [phone] 09/22/2024 Thu Haji Plan Of Treatment Next Appt Details Provider Name:Moni khan, 03/28/2025 10:00:00 AM, [address] [place], [place], [phone], Progress Notes * Дмитрий FARFANOB:[birth year] (69 yo F)Acc No.[id number]:09/22/2024 Medical Note Patient: Chiquita MAX Provider: Vikash Haji :1955 A ge:69 Y S ex:Female Date:09/22/2024 Address[address] [id number] Subjective: * Chief Complaints: * 1 . 6 month DM2. * Medical History: Objective: * Vitals: Assessment: Plan: * Treatment: * Billing Information: * Visit Code: * Procedure Codes: * Electronic signature of EDWARDO Brito sa on 09/29/2024 at 09:45 AM EDT Sign off status: Pending * Provider: Vikash Haji Date: 09/22/2024 Generated for Elenita Turpin on: 09/29/2024 09:45 AM EDT
--- NOTE | 2024-09-29 | MM_ITS ---
Patient Name: PIETRO FARFAN MR#: [id number] : 1955 Exam Date: 09/29/2024 Ordering Doctor: DR HAYDEN CAMARGO . This report includes an Addendum and supersedes previous reports for this exam. RADIOLOGY REPORT PROCEDURE: MM TOMOSYNTHESIS SCREENING BI COMPARISON: MM TOMOSYNTHESIS SCREENING BI, 09/03/2023. MM TOMOSYNTHESIS SCREENING BI, 08/14/2022. MG MAMM SCREEN 3D MELECIO CAD, 05/29/2021. MG MAMM MELECIO SCRN W CAD DIG, 01/15/2012. INDICATIONS: Screening for malignancy of breasts Calculator Name NCI Breast Cancer Risk Assessment Tool 5 Year Breast Cancer Risk 1.80% Lifetime Breast Cancer Risk 4.60% Personal Breast Cancer No Personal Ovarian Cancer No Treatments None Family Cancers None LOCATION: [facility] BREAST COMPOSITION: The breasts are heterogeneously dense, which may obscure small masses. FINDINGS: DIAGNOSTIC CATEGORY 0--INCOMPLETE: NEED ADDITIONAL IMAGING EVALUATION. RIGHT BREAST: No significant suspicious finding. LEFT BREAST: Grouping of suspicious microcalcifications upper outer aspect of the left breast, middle depth. RECOMMENDATIONS: ADDITIONAL MAMMOGRAPHIC VIEWS REQUIRED: LEFT BREAST - spot magnification views, true lateral view. PLEASE NOTE: A NORMAL MAMMOGRAM DOES NOT EXCLUDE THE POSSIBILITY OF BREAST CANCER. A CLINICALLY SUSPICIOUS PALPABLE LUMP SHOULD BE BIOPSIED. Dictated by: Faisal Sanders DO on 09/29/2024 at 16:17 Approved by: Faisal Sanders DO on 09/29/2024 at 16:21 ADDENDUM: FINDINGS: RECOMMENDATIONS: LEFT BREAST: Grouping of suspicious microcalcifications upper outer aspect of the left breast, middle depth. Dictated by: Faisal Sanders DO on 10/04/2024 at 15:52 Approved by: Faisal Sanders DO on 10/04/2024 at 15:53
--- OUTSIDE RECORDS SUMMARY | 2024-09-29 09:45 | XMS_ITS | Clinical Summary ---
Author Organization [facility] Address [address] [place] [place] [address] Care Team Providers Care Sign Erector And Repairer Name Role Phone Unavailable Primary Care Provider Unavailabl e Social History Tobacco Use Types Packs/Day Years Used Date Smoking Tobacco: Never Assessed Comments Unknown Sex and Gender Information Value Date Recorded Sex Assigned at Not on file Legal Sex Female 12:06 AM EDT Gender Identity Not on file Sexual Orientation Not on file Last Filed Vital Signs Vital Sign Reading Time Taken Comments Blood Pressure 146/90 07/07/2018 3:34 PM EDT Pulse - - Temperature - - Respiratory Rate - - Oxygen Saturation 99% 07/07/2018 3:30 PM EDT Inhaled Oxygen Concentration - - Weight 93.9 kg (207 lb) 07/07/2018 3:29 PM EDT Height 166.4 cm (5' 5.5 ) 07/07/2018 3:30 PM EDT Body Mass Index 33.92 07/07/2018 3:29 PM EDT Plan of Treatment Not on file
--- OUTSIDE RECORDS SUMMARY | 2024-09-29 09:45 | XMS_ITS | Clinical Summary ---
Author Organization [employer] tem Address [id number] [address] [place] [address] Care Team Providers Care Geropsychologist Name Role Phone Ivan Romeo MD Primary Care Provider [phone] Allergies No known active allergies Medications latanoprost (XALATAN) 0.005 % ophthalmic solution 1 drop nightly. Active irbesartan (AVAPRO) 150 mg tablet Take 150 mg by mouth nightly. Active metoprolol succinate XL (TOPROL-XL) 50 mg 24 hr tablet Take 50 mg by mouth daily. Active meclizine (ANTIVERT) 25 mg tablet Chew 25 mg and swallow 3 (three) times a day as needed for dizziness. Active rosuvastatin (CRESTOR) 10 mg tablet Active timolol (TIMOPTIC) 0.25 % ophthalmic solution Active amLODIPine (NORVASC) 10 mg tablet Active metFORMIN (GLUCOPHAGE) 850 mg tablet Active ONETOUCH DELICA PLUS LANCET 33 gauge misc 03/25/2024 Active ONETOUCH ULTRA TEST strip 03/25/2024 Active acetaminophen (TYLENOL EXTRA STRENGTH) 500 mg tablet Active cinnamon bark extract 500 mg tablet Active calcium carbonate (OS-KINGS) 600 mg elemental (1,500 mg) tablet Take 1 tablet (600 mg total) by mouth daily with breakfast. 08/09/2024 Active calcium carbonate-vitam in D3 (OSCAL 500 + D) 500 mg (1,250 mg) - 200 units per tablet Take 1 tablet by mouth in the morning and 1 tablet in the evening. Take with meals. Active Active Problems Problem Noted Date Diagnosed Date MGUS (monoclonal gammopathy of unknown significa nce) 06/11/2024 Elevated blood protein 06/11/2024 Encounters Date Type Department Care Team Description 09/10/2024 1:30 PM EDT Office Visit [facility] [address] [place] [phone] Rosas Can MD MGUS (monoclonal gammopathy of unknown significance) (Primary Dx); Elevated blood protein 09/10/2024 Documentation [facility] [address] [place] [phone] Jhon Lemon RN 09/10/2024 Travel 09/01/2024 Travel 09/01/2024 Orders Only [facility] [address] [place] [phone] Sumaya Milton RN Hyperproteinemia (Primary Dx); Monoclonal gammopathy; Elevated blood protein 08/13/2024 Telephone [facility] [address] [place] [address] [place] [phone] Paige Schofield CMA 07/29/2024 11:18 AM EDT - 07/29/2024 11:59 PM EDT Hospital Encounter [facility] [address] [place] [address] Senile osteoporosis Discharge Disposition: Home 07/22/2024 Abstract [facility] [address] [place] [address] External, Scanning Provider from Last 3 Months Family History Medical History Relation Name Comments Diabetes Brother 1 Diabetes Mother Glaucoma Mother Hypertension Mother Relation Name Status Comments Brother 1 Alive Brother 2 Alive Father Unknown Mother Social History Tobacco Use Types Packs/Day Years Used Date Smoking Tobacco: Never Smokeless Tobacco: Never Alcohol Use Standard Drinks/Week Comments Not Currently 0 (1 standard drink = 0.6 oz pur e alcohol) Childcare Answer Date Recorded Childcare Unknown 08/12/2018 Employment Answer Date Recorded Employment Unknown 08/12/2018 Purpose - Life Answer Date Recorded Purpose and direction in life Unknown Comments No Sex and Gender Information Value Date Recorded Sex Assigned at Not on file Legal Sex Female 11:55 AM EDT Gender Identity Not on file Sexual Orientation Not on file Last Filed Vital Signs Vital Sign Reading Time Taken Comments Blood Pressure 135/72 09/10/2024 1:35 PM EDT Pulse 78 09/10/2024 1:35 PM EDT Temperature 36.7 C (98.1 F) 09/10/2024 1:35 PM EDT Respiratory Rate 15 09/10/2024 1:35 PM EDT Oxygen Saturation 98% 09/10/2024 1:35 PM EDT Inhaled Oxygen Concentration - - Weight 86 kg (189 lb 9.6 oz) 09/10/2024 1:35 PM EDT Height 165.1 cm (5' 5 ) 09/10/2024 1:35 PM EDT Body Mass Index 31.55 09/10/2024 1:35 PM EDT Plan of Treatment Health Maintenance Due Date Last Done Comments Depression Screening 1965 Adult BMI Follow Up Plan 1971 DTaP,Tdap and Td Vaccines (1 - Tdap) 1972 Zoster (Shingles) Vaccine (1 of 2) 1972 Fall Risk Screening 2018 COVID-19 Vaccine (4 - 2023-2 5 season) 2023 06/05/2021, 10/23/2020, 10/02/2020 Influenza Vaccine 11/01/2024 Adult BMI Screening 09/10/2025 09/10/2024 Tobacco Screening 09/10/2025 09/10/2024 Medical Devices Implanted Type Area Delivery Route Driver Device Identifier Shelf Expiration Date Model / Serial / Lot Lens Iol Ultrasert 24.5d - [id number] - [id number] Implanted:Qty: 1 on 08/17/2019 by Bessy Acosta MD at [facility] Lens Left: [employer] 12/31/2020 [id number] 24.5 / [id number] 12 / NA Procedures Procedure Name Priority Date/Time Associated Diagnosis Comments CLINICAL PATHOLOGY REVIEW Routine 09/02/2024 1:41 PM EDT Hyperproteinemia Monoclonal gammopathy Elevated blood protein CLINICAL PATHOLOGY REVIEW Routine 09/02/2024 1:41 PM EDT Hyperproteinemia Monoclonal gammopathy Elevated blood protein COMPREHENSIVE METABOLIC PANEL Routine 09/01/2024 8:44 AM EDT Hyperproteinemia Monoclonal gammopathy Elevated blood protein CBC WITH AUTO DIFFERENTIAL Routine 09/01/2024 8:44 AM EDT Hyperproteinemia Monoclonal gammopathy Elevated blood protein FREE LIGHT CHAINS Routine 09/01/2024 8:4 4 AM EDT Hyperproteinemia Monoclonal gammopathy Elevated blood protein SERUM IMMUNOFIXATION Routine 09/01/2024 8:44 AM EDT Hyperproteinemia Monoclonal gammopathy Elevated blood protein PROTEIN ELECTROPHORESIS, SERUM Routine 09/01/2024 8:44 AM EDT Hyperproteinemia Monoclonal gammopathy Elevated blood protein DEXA SCAN CENTRAL SKELETAL Routine 07/29/2024 11:28 AM EDT Senile osteoporosis from Last 3 Months Results * Clinical Pathology Review (09/02/2024 1:41 PM EDT) Only the most recent of2 resultswithin the time period is included. Case Report Clinical Pathology Report Case: [id number] Authorizing Provider: Rosas Can MD Collected: 09/02/2024 1341 Ordering Location: [facility] Received: 09/02/[address] [place] [address] - Lab Pathologist: Luci Borjas MD Specimens: 1) - Blood, Venous 2) - Blood, Venous 09/04/2024 1:35 PM EDT [facility] Final Diagnosis Monoclonal protein in gamma region, 0.9 g/dL, IgG kappa. 09/04/2024 1:35 PM EDT [facility] at 1335 EDT Venous blood / Unknown 09/02/2024 1:41 PM EDT 09/02/2024 1:41 PM EDT Venous blood / Unknown 09/02/2024 1:41 PM EDT 09/02/2024 1:41 PM EDT us Rosas Can MD PATHOLOGY/CYTOLOGY ORDERABLES Fi nal Result [facility] [address] [place] [address], [place] [phone] * (ABNORMAL) Serum Immunofixation (09/01/2024 8:44 AM EDT) IGA 101 68 - 378 mg/dL 09/04/2024 5:16 PM EDT [facility] IGG 1,802(H) 635 - 1,741 mg/dL 09/04/2024 5:16 PM EDT [facility] IGM 60 45 - 281 mg/dL 09/04/2024 5:16 PM EDT [facility] IMMUNOFIX INTERP See Pathology Report 09/04/2024 5:16 PM EDT [facility] Blood Venous blood / Unknown Venipuncture / Unknown 09/01/2024 8:44 AM EDT 09/01/2024 8:44 AM EDT us Rosas Can MD LAB BLOOD ORDERABLES Final Resul t Performing Organization Address City/[facility]/ZIP Co de Phone Number [facility] [address] [place] [address], [place] [phone] * (ABNORMAL) Free light chains (09/01/2024 8:44 AM EDT) FREE JULIO/LAMBD RATIO 2.02(H) 0.26 - 1.65 09/01/2024 3:33 PM EDT [facility] FREE KAPPA LT CHAINS 3.32(H) 0.33 - 1.94 mg/dL 09/01/2024 3:33 PM EDT [facility] FREE LAMBDA LT CHAINS 1.64 0.57 - 2.63 mg/dL 09/01/2024 3:33 PM EDT [facility] Blood Venous blood / Unknown Venipuncture / Unknown 09/01/2024 8:44 AM EDT 09/01/2024 8:44 AM EDT us Rosas Can MD LAB BLOOD ORDERABLES Final Resul t [facility] [address] [place] [address], [place] [phone] * CBC auto differential (09/01/2024 8:44 AM EDT) WBC 6.2 4 - 11 x10E9/L 09/01/2024 1:26 PM EDT [facility] RBC Count 4.00 3.8 - 5.2 X10E12/L 09/01/2024 1:26 PM EDT [facility] Hemoglobin 11.7 11.7 - 15.5 g/dL 09/01/2024 1:26 PM EDT [facility] Hematocrit 36.0 35 - 47 % 09/01/2024 1:26 PM EDT [facility] MCV 90 80 - 100 fL 09/01/2024 1:26 PM EDT [facility] MCH 29.3 27 - 34 pg 09/01/2024 1:26 PM EDT [facility] MCHC 32.6 32 - 36 g/dL 09/01/2024 1:26 PM EDT [facility] RDW 14.2 11.5 - 15 % 09/01/2024 1:26 PM EDT [facility] Platelet Count 249 150 - 450 X10E9/L 09/01/2024 1:26 PM EDT [facility] MPV 9.2 7 - 12 fL 09/01/2024 1:26 PM EDT [facility] Neutrophils % 58.8 % 09/01/2024 1:26 PM EDT [facility] Lymphocytes % 31.6 % 09/01/2024 1:26 PM EDT [facility] Monocytes % 7.5 % 09/01/2024 1:26 PM EDT [facility] Eosinophils % 1.1 % 09/01/2024 1:26 PM EDT [facility] Basophils % 1.0 % 09/01/2024 1:26 PM EDT [facility] Neutrophils Absolute (A) 3.7 1.5 - 6.6 10*3/uL 09/01/2024 1:26 PM EDT [facility] Lymphocytes Absolute 2.0 1.0 - 3.5 10*3/uL 09/01/2024 1:26 PM EDT [facility] Monocytes Absolute 0.5 0.0 - 0.9 10*3/uL 09/01/2024 1:26 PM EDT [facility] Eosinophils Absolute 0.1 0.0 - 0.4 10*3/uL 09/01/2024 1:26 PM EDT [facility] Basophils Absolute 0.1 0.0 - 0.2 10*3/uL 09/01/2024 1:26 PM EDT [facility] Differential Type AUTOMATED DIFFERENTIAL 09/01/2024 1:26 PM EDT [facility] Blood Venous blood / Unknown Venipuncture / Unknown 09/01/2024 8:44 AM EDT 09/01/2024 8:44 AM EDT us Rosas Can MD LAB BLOOD ORDERABLES Final Resul t [facility] [address] [place] [address], * Protein electrophoresis, serum (09/01/2024 8:44 AM EDT) TOTAL PROTEIN 7.4 6.0 - 8.0 g/dL 09/04/2024 5:16 PM EDT [facility] ALPHA 1 GLOBULIN 0.3 0.1 - 0.4 g/dL 09/04/2024 5:16 PM EDT [facility] ALPHA 2 GLOBULIN 0.7 0.4 - 1.1 g/dL 09/04/2024 5:16 PM EDT [facility] BETA GLOBULIN 0.8 0.5 - 1.2 g/dL 09/04/2024 5:16 PM EDT [facility] GAMMA GLOBULIN 1.6 0.5 - 1.6 g/dL 09/04/2024 5:16 PM EDT [facility] Protein Electrophoresis Interp See Pathology Report 09/04/2024 5:16 PM EDT [facility] Albumin 4.1 3.4 - 5.3 g/dL 09/04/2024 5:16 PM EDT [facility] Blood Venous blood / Unknown Venipuncture / Unknown 09/01/2024 8:44 AM EDT 09/01/2024 8:44 AM EDT us Rosas Can MD LAB BLOOD ORDERABLES Final Resul t [facility] [address] [place] [address], [place] [phone] * (ABNORMAL) Comprehensive metabolic panel (09/01/2024 8:44 AM EDT) SODIUM 138 134 - 146 mmol/L 09/01/2024 1:28 PM EDT [facility] POTASSIUM 4.6 3.5 - 5.0 mmol/L 09/01/2024 1:28 PM EDT [facility] CHLORIDE 103 98 - 109 mmol/L 09/01/2024 1:28 PM EDT [facility] CARBON DIOXIDE 27 22 - 32 mmol/L 09/01/2024 1:28 PM EDT [facility] ANION GAP 8 5 - 15 mmol/L 09/01/2024 1:28 PM EDT [facility] BLOOD UREA NITROGEN 19 5 - 27 mg/dL 09/01/2024 1:28 PM EDT [facility] CREATININE 0.81 0.40 - 1.00 mg/dL 09/01/2024 1:28 PM EDT [facility] Comment:METHOD TRACEABLE TO IDMS STANDARD GLUCOSE 111(H) 65 - 99 mg/dL 09/01/2024 1:28 PM EDT [facility] CALCIUM 9.9 8.5 - 10.5 mg/dL 09/01/2024 1:28 PM EDT [facility] TOTAL PROTEIN 7.4 6.0 - 8.0 g/dL 09/01/2024 1:28 PM EDT [facility] ALBUMIN 4.5 3.2 - 5.3 g/dL 09/01/2024 1:28 PM EDT [facility] ALKALINE PHOSPHATASE 62 39 - 130 U/L 09/01/2024 1:28 PM EDT [facility] AST 13 <=41 U/L 09/01/2024 1:28 PM EDT [facility] ALT 14 <=31 U/L 09/01/2024 1:28 PM EDT [facility] BILIRUBIN,TOTAL 0.4 0.3 - 1.2 mg/dL 09/01/2024 1:28 PM EDT [facility] EGFR Non-Race Dependent 78 >=60 ml/min/1.7 3sq.m 09/01/2024 1:28 PM EDT [facility] Comment: Reported eGFR is based on the CKD-EPI 2020 equation that does not use a race coefficient. Blood Venous blood / Unknown Venipuncture / Unknown 09/01/2024 8:44 AM EDT 09/01/2024 8:44 AM EDT us Rosas Can MD LAB BLOOD ORDERABLES Final Resul t [facility] [address] [place] [address], [place] [phone] * Dexa scan central skeletal (07/29/2024 11:28 AM EDT) Anatomical Region Laterality Modality N/A DXA Scan 07/29/2024 10:0 6 PM EDT Narrative 07/29/2024 10:07 PM EDT CLINICAL INFORMATION: Senile osteoporosis. Postmenopausal TECHNIQUE: Dual X-ray Absorptiometry (DXA) was performed. COMPARISON: No relevant prior studies available. FINDINGS: LUMBAR SPINE (L1-L4): BMD is 1.172 gm/cm2. T-score is -0.2. LEFT FEMORAL NECK: BMD is 0.893 gm/cm2. T-score is -1.0. LEFT TOTAL FEMUR: BMD is 0.984 gm/cm2. T-score is -0.2. RIGHT FEMORAL NECK: BMD is 0.878 gm/cm2. T-score is -1.2. RIGHT TOTAL FEMUR: BMD is 0.959 gm/cm2. T-score is -0.4. The estimated 10-year probability for a major osteoporotic fracture (utilizing FRAX) is 9.0% and for a hip fracture is 1.1%. IMPRESSION: The exam is considered to be osteopenic by the National Osteoporosis Foundation guidelines. Recommend consideration for initiation of therapy. WHO CLASSIFICATION: Normal: T-score -1.0 or above Osteopenia: T-score -1.1 to < 2.5 Osteoporosis: T-score -2.5 or lower Secondary causes of bone loss should be evaluated if clinically indicated since the etiology of low BMD cannot be determined by BMD measurement alone. The current National Osteoporosis Foundation guide recommends treating patients with FRAX ten year risk scores of greater than or equal to 3% for hip fracture or greater than or equal to 20% for major osteoporotic fracture, to reduce their fracture risk. Finalized by Santos Graham MD on 07/29/2024 10:07 PM Procedure Note Santos Graham MD - 07/29/2024 CLINICAL INFORMATION: Senile osteoporosis. Postmenopausal TECHNIQUE: Dual X-ray Absorptiometry (DXA) was performed. COMPARISON: No relevant prior studies available. FINDINGS: LUMBAR SPINE (L1-L4): BMD is 1.172 gm/cm2. T-score is -0.2. LEFT FEMORAL NECK: BMD is 0.893 gm/cm2. T-score is -1.0. LEFT TOTAL FEMUR: BMD is 0.984 gm/cm2. T-score is -0.2. RIGHT FEMORAL NECK: BMD is 0.878 gm/cm2. T-score is -1.2. RIGHT TOTAL FEMUR: BMD is 0.959 gm/cm2. T-score is -0.4. The estimated 10-year probability for a major osteoporotic fracture(utilizing FRAX) is 9.0% and for a hip fracture is 1.1%. IMPRESSION: The exam is considered to be osteopenic by the National OsteoporosisFoundation guidelines. Recommend consideration for initiation oftherapy. WHO CLASSIFICATION: Normal: T-score -1.0 or above Osteopenia: T-score -1.1 to < 2.5 Osteoporosis: T-score -2.5 or lower Secondary causes of bone loss should be evaluated if clinically indicatedsince the etiology of low BMD cannot be determined by BMD measurementalone. The current National Osteoporosis Foundation guide recommends treatingpatients with FRAX ten year risk scores of greater than or equal to 3% forhip fracture or greater than or equal to 20% for major osteoporoticfracture, to reduce their fracture risk. Finalized by Santos Graham MD on 07/29/2024 10:07 PM Ivan Romeo MD IMG DXA ORDERABLES Final Result from Last 3 Months Insurance [employer] Care Teams Geropsychologist Relationship Specialty Start Date End Date Ivan Romeo MD [address] [place] [address] PCP - General Family Medicine 06/11/24
--- OUTSIDE RECORDS SUMMARY | 2024-09-29 09:46 | XMS_ITS | Patient Health Record ---
Author Organization [facility] vices Address [address], [place] [id number] Care Team Providers Care Gyroscope Technician Name Role Phone Thu Haji Primary Care Provider [phone] Heidi Worthy Unavailable [phone] Moni Gómez Unavailable [phone] Paula Rodriguez Unavailable [phone] JustinBindu pena Unavailable [phone] Allergies No Known Allergies Results Component Value Reference Range Notes POCT A1C Reviewed date:12/24/2023 03:18:53 PM Interpretation: Performing Lab: Notes/Report: POCT A1C Reviewed date:03/25/2024 04:36:01 PM Interpretation: Performing Lab: Notes/Report: LIPID PANEL WITH REFLEX TO D IRECT LDL Reviewed date:11/20/2023 02:22:57 PM Interpretation: Performing Lab: Notes/Report: CHOLESTEROL 134 <200 mg/dL TRIGLYCERIDES 62 <149 mg/dL HDL-CHOL 58 >39 mg/dL LDL-CHOL, CALCULATED 64 <100 mg/dL VLDL-CHOL, CALCULATED 12 <30 mg/dL LDL/HDL 1.1 <3.22 RATIO CHOL/HDL 2.3 <4.44 RATIO COMPREHENSIVE METABOLIC PANE L WITH GFR Reviewed date:11/20/2023 02:27:20 PM Interpretation: Performing Lab: Notes/Report: GLUCOSE 124 70-99 mg/dL BUN 14 8-23 mg/dL CREATININE, BLOOD 0.90 0.60-1.30 mg/dL eGFR (2021 CKD-EPI) 69 >60 mL/min/1.73 CALCIUM 10.0 8.5-10.5 mg/dL SODIUM 139 133-146 meq/L POTASSIUM 4.3 3.5-5.4 meq/L CHLORIDE 106 95-107 meq/L CO2 23 19-31 meq/L ANION GAP 10.0 7.0-16.0 meq/L T. BILIRUBIN 0.3 <=1.2 mg/dL ALK PHOS 75 40-142 U/L AST-SGOT 16 9-40 U/L ALT-SGPT 17 5-40 U/L T. PROTEIN 7.6 6.1-8.3 g/dL ALBUMIN 4.6 3.5-5.2 g/dL [facility] [address] [place] [address] CLIA No. [id number] CAP Accreditation No. [id number] Preschool Teacher: Nancy Bassett M.D. Troponin I High Sensitivity Reviewed date:03/29/2024 12:37:37 PM Interpretation: Performing Lab: Notes/Report: , [facility] Troponin I High Sensitivity 4.5 4.0-51.3 pg/m L CUT-OFF POINTS HAVE BEEN ESTABLISHED BASED ON THE FOURTH UNIVERSAL DEFINITION OF MYOCARDIAL INFARCTION. THE UPPER REFERENCE LIMIT (URL) OF TROPONIN, DEFINED THE 99TH PERCENTILE OF cTnI DISTRIBUTION IN A REFERENCE POPULATION, HAS BEEN CONFIRMED THE DECISION THRESHOLD FOR AR DIAGNOSIS. 99TH PERCENTILE = 51.4 PG/ML NOTE: HIGH-SENSITIVITY TROPONIN ASSAY IS NOT INTENDED TO BE USED IN ISOLATION BUT SHOULD BE INTERPRETED IN CONJUNCTION WITH OTHER DIAGNOSTIC AND CLINICAL INFORMATION. Performing Lab: see note ML - [facility] LB XR chest 1V Reviewed date:03/29/2024 12:37:37 PM Interpretation: Performing Lab: Notes/Report: Source Facility: [facility]-[address] [place] [address] [place] [address] XRay Report Signed Patient: CHIQUITA FARFAN MR#: [id number] : 1955 Acct:[id number] Age/Sex: 68 / F ADM Date: 03/29/24 Loc: ER Attending Dr: Ordering Physician: Mary Jo Mendoza M.D. Date of Service: 03/29/24 Procedure(s): XR chest 1V Accession Number(s): [id number] cc: Mary Jo Mendoza M.D.; Thu Haji NP The [place] [address] Patient Name: CHIQUITA FARFAN MRN: [id number] date: 1955 Sex: F Assigned Patient Location: ER Current Patient Location: ER Accession/Order Number: [id number] Exam Date: 03/29/2024 10:20 Report Date: 03/29/2024 10:44 At the request of: MARY JO MENDOZA Procedure: XR chest 1V EXAM: XR chest 1V HISTORY: CP COMPARISON: Chest radiograph dated 03/20/2022. TECHNIQUE: AP erect portable chest radiograph performed. FINDINGS: The trachea is unremarkable. Stable mild prominence of the cardiac silhouette. The mediastinal silhouette and hilar shadows are stable and unremarkable. Stable mild elevation of the right hemidiaphragm. There is no consolidation, pleural effusion or pulmonary vascular congestion. There is no pneumothorax or osseous abnormality. XR/XR chest 1V IMPRESSION: There is no acute cardiopulmonary process. Electronically authenticated by: CIRO PAL Date: 03/29/2024 10:44 Dictated By: Ciro Pal M.D. Signed By: 03/29/24 1046 DD/ 1044 TD/TT: Assistant Winemaker: ECG 12 lead Reviewed date:03/30/2024 08:16:51 AM Interpretation: Performing Lab: Notes/Report: Source Facility: [place] [address] [place] [address] Electrocardiograph Report Signed Patient: CHIQUITA FARFAN MR#: [id number] : 1955 Acct:[id number] Age/Sex: 68 / F ADM Date: 03/29/24 Loc: ER Attending Dr: Ordering Physician: Mary Jo Mendoza M.D. Date of Service: 03/29/24 Procedure(s): ECG 12 lead Accession Number(s): [id number] cc: [facility] Test Date: 2024-03-29 Pat Name: CHIQUITA FARFAN Department: Room: - Gender: Female Per Diem Physical Therapist Assistant: : 1955 Requested By: Order Number: [id number] Reading MD: PER FELIX Measurements Intervals [place] Rate: 87 P: 45 GA: 170 QRS: 33 QRSD: 64 T: 12 QT: 332 QTc: 376 Interpretive Statements 1100 Sinus rhythm 4068 Nonspecific Twave abnormality 8102 Low QRS voltage in chest leads 9130 borderline ECG Compared to ECG 03/20/2022 05:07:44 Sinus tachycardia no longer present Electronically Signed On 03-29-2024 20:17:27 EST by PER FELIX Dictated By: Per Felix D.O. Signed By: 03/29/242016 DD/ 1001 TD/TT: Assistant Winemaker: Troponin I High Sensitivity Reviewed date:03/29/2024 12:37:37 PM Interpretation: Performing Lab: Notes/Report: [facility] , Troponin I High Sensitivity 5.2 4.0-51.3 pg/m L CUT-OFF POINTS HAVE BEEN ESTABLISHED BASED ON THE FOURTH UNIVERSAL DEFINITION OF MYOCARDIAL INFARCTION. THE UPPER REFERENCE LIMIT (URL) OF TROPONIN, DEFINED THE 99TH PERCENTILE OF cTnI DISTRIBUTION IN A REFERENCE POPULATION, HAS BEEN CONFIRMED THE DECISION THRESHOLD FOR AR DIAGNOSIS. 99TH PERCENTILE = 51.4 PG/ML NOTE: HIGH-SENSITIVITY TROPONIN ASSAY IS NOT INTENDED TO BE USED IN ISOLATION BUT SHOULD BE INTERPRETED IN CONJUNCTION WITH OTHER DIAGNOSTIC AND CLINICAL INFORMATION. Performing Lab: see note ML - [facility] LB Manual Differential Reviewed date:03/29/2024 12:37:37 PM Interpretation: Performing Lab: Notes/Report: [facility] , Segmented Neutrophils % Manual 93.0 43.0-75.0 Band Neutrophils % 2.0 0-5 % Lymphocytes Percent Manual 3.0 20.5-60.0 % Monocytes Percent Manual 2.0 1.7-12.0 % Eosinophils Percent Manual 0.0 0.9-7.0 % Basophils Percent Manual 0.0 0.2-2.0 % Segmented Neut Absolute Manual 8.92 1.4-6.5 10 3/uL Band Neutrophils Absolute 0.2 0.0-0.3 10 3/uL Lymphocytes Absolute Manual 0.28 1.20-3.80 10 3/uL Monocytes Absolute Manual 0.19 0.30-0.80 10 3/ uL Eosinophils Absolute Manual 0.00 0.00-0.70 10 3/uL Basophils Abs Manual 0.00 0.00-0.10 10 3/uL Poikilocytosis 1+ Tear Drop Cells 1+ Performing Lab: see note ML - [facility] Complete Blood Count Auto Di ff Reviewed date:03/29/2024 12:37:37 PM Interpretation: Performing Lab: Notes/Report: [facility] , White Blood Count 9.6 4.0-11.0 10 3/uL Red Blood Count 4.02 4.20-5.40 10 6/uL Hemoglobin 12.2 12.0-16.0 g/dL Hematocrit 36.9 36.0-48.0 % Mean Corpuscular Volume 91.8 81.0-99.0 fL Mean Corpuscular Hemoglobin 30.3 26.7-34.0 pg Mean Corpuscular HGB Conc 33.1 29.9-35.2 g/dL Red Cell Distribution Width 12.6 11.0-15.0 % Platelet Count 260 150-450 10 3/uL Mean Platelet Volume 10.8 9.5-13.5 fL Performing Lab: see note - [facility] Basic Metabolic Panel Reviewed date:03/29/2024 12:37:37 PM Interpretation: Performing Lab: Notes/Report: [facility] , Sodium 137 136-145 mmol/L Potassium 4.1 3.5-5.1 mmol/L Chloride 104 98-107 mmol/L Carbon Dioxide 26.2 21.0-32.0 mmol/L Anion Gap 10.9 Glucose 183 74-106 mg/dL Blood Urea Nitrogen 20.0 7.0-18.0 mg/dL Creatinine 1.02 0.55-1.02 mg/dL Estimated GFR ( Migdalia >60 >=60 mL/mi n/1.73m 2 Estimated GFR (Non- Shanna 54 >=60 mL/mi n/1.73m 2 BUN Creatinine Ratio 19.6 Calcium 9.0 8.5-10.1 mg/dL Performing Lab: see note - [facility] CA echo doppler complete Reviewed date:04/06/2024 10:53:17 PM Interpretation: Performing Lab: Notes/Report: Source Facility: [facility]-[address] [place] [address] [place] [address] Cardiology Report Signed Patient: CHIQUITA FARFAN MR#: [id number] : 1955 Acct:[id number] Age/Sex: 68 / F ADM Date: 04/05/24 Loc: CARD Attending Dr: Thu Haji NP Ordering Physician: Thu Haji NP Date of Service: 04/05/24 Procedure(s): CA echo doppler complete Accession Number(s): [id number] cc: Thu Haji NP Patient Name: CHIQUITA FARFAN MR#: [id number] : 1955 Exam Date: 04/05/2024 Ordering Doctor: THU HAJI ECHOCARDIOGRAM REPORT PROCEDURE: CA ECHO DOPPLER COMPLETE INDICATIONS: Chest pain, hypertension, diabetes COMPARISON: None. DESCRIPTION: COMPLETE ECHOCARDIOGRAM Real-time transthoracic echocardiography with 2D, M-mode, spectral and color flow Doppler performed. QUALITY: Technical quality was good. LEFT VENTRICLE: Normal chamber size. Normal left ventricular wall thickness. Normal systolic function. LV EF: Normal left ventricular ejection fraction, (65%). DIASTOLIC: Diastolic function is indeterminate. ATRIAL SEPTUM: Visually appears intact. LEFT ATRIUM: Normal chamber size. RIGHT ATRIUM: Normal chamber size. RIGHT VENTRICLE: Normal chamber size. Normal right ventricular systolic function. TRICUSPID VALVE: Normal mobility and thickness. No stenosis with trivial regurgitation. Unable to assess right-sided pressures due to lack of measurable tricuspid regurgitation. MITRAL VALVE: Normal mobility and thickness. No evidence of mitral valve stenosis. There is no mitral annular calcification. No mitral regurgitation. AORTIC VALVE: Normal trileaflet appearance. No visible sclerosis. Normal leaflet mobility. No evidence of aortic valve stenosis. No aortic regurgitation. AORTIC ROOT: Normal diameter and appearance, measuring 2.5 cm. Ascending aorta is normal in size, measuring 2.7 cm. PULMONIC VALVE: Normal thickness and mobility. No stenosis. No regurgitation. PERICARDIUM: No evidence of pericardial effusion. IVC: Collapses with inspirations. PLEURA: CONCLUSION: 1. Normal ventricular size and systolic function. LVEF is estimated at 65%. 2. No significant valvular dysfunction. 3. Unable to assess right-sided pressures due to lack of measurable tricuspid regurgitation. Adult Echocardiography Procedure Report Left Ventricle LVEDD (3.7 - 5.6 cm): 4.99 cm LVESD (2.2 - 4.0 cm): 2.65 cm LVIVS thickness (0.6 - 1.2 cm): 0.83 cm LVPW thickness (0.5 - 1.0 cm): 0.89 cm e': 0.06 m/s E - e': 11.71 LVOT Max Gradient: 5.50 mm[Hg] LVOT Area (cm2): 1.17 m/s Peak Velocity (LVOT): 1.17 m/s Mean Velocity (LVOT): 0.63 m/s LVOT Diameter 2.01 cm Left Atrium LA Volume Index (2D A2C): 29.87 ml/m2 Left Atrium Systolic Dimension: 3.47 cm Mitral Valve MV E to A Ratio: 0.85 Mitral Valve A-Wave Peak Velocity: 0.85 m/s Mitral Valve E-Wave Peak Velocity: 0.71 m/s Right Ventricle Aorta AO Root Diam: 2.50 cm Ascending Ao Diam: 2.66 cm Aortic Valve AoV Area (Peak Daniel): 2.18 cm2, 2.18 cm2 AoV Area (VTI): 2.17 cm2, 2.17 cm2 Peak Velocity(Antegrade Flow): 1.71 m/s Peak Gradient(Antegrade Flow): 11.72 mm[Hg] Mean Velocity(Antegrade Flow): 1.10 m/s Mean Gradient(Antegrade Flow): 5.49 mm[Hg] Velocity Time Integral: 33.71 cm Tricuspid Valve Pulmonic Valve Mean Gradient: 2.34 mm[Hg] Mean Velocity: 0.71 m/s Peak Velocity: 1.09 m/s, 1.00 m/s Peak Gradient: 4.01 mm[Hg], 4.71 mm[Hg] Right Atrium Right Atrium Systolic Pressure: 40.43 ml, 40.43 ml Dictated by: Cheyenne Arango M.D. on 04/05/2024 at 09:23 Approved by: Cheyenne Arango M.D. on 04/05/2024 at 09:27 Dictated By: CHEYENNE ARANGO Signed By: 04/05/24927 DD/ 6 TD/TT: Assistant Winemaker: Reason For Referral No Information Medications Medication SIG (Take, Route, Frequency, Duration) Notes Start Date End Date Status OneTouch Ultra - Use one test strip In Vitro twice daily for 90 days Active Rosuvastatin Calcium 10 MG 1 tablet Orally Once a day for 90 days Active OneTouch Delica Plus [id number] - USE ONE TO TEST TWO TIMES A DAY for 50 Active Acetaminophen Extra Strength 500 MG 1 tablet as needed Orally every 6 hrs Active Cinnamon 500 MG as directed Orally Active metFORMIN HCl 850 MG 1 tablet with a meal Orally twice a day for 90 days Active Daily Fiber Not-Taki ng Colon Cleanse Not-Ta analy OneTouch Ultra 2 w/Device USE TO TEST BL OOD SUGAR TWICE DAILY for 30 days Active Aspirin 81 MG 1 tablet Orally Once a day as needed Active Timolol Maleate 0.25 % 1 drop into affected eye Ophthalmic Once a day for 50 Active amLODIPine Besylate 10 MG 1 tablet Orall y Once a day for 90 days Active Voltaren Arthritis Pain 1 % as directed Externally Active Cyclobenzaprine HCl 10 MG 1 tablet at be dtime as needed Orally Once a day for 30 days 12/24/2023 Not-Taking Social History Tobacco Use: Social History Observation Description Date Details (start date - stop date) Never Smoker NA - NA Sex Assigned At : Social History Observation Description Sex Assigned At Female Household Question Answer Notes Number of adults in household: 1 CAGE-AID Questionnaire (2018 Edition) Question Answer Notes Have you ever felt that you ought to cut down on your drinking or drug use? No patient entered data CAGE-AID Score 0 Interpretation Negative PRAPARE Question Answer Notes Date Completed/Updated: 03/25/2024 guerlinee nt entered data What is your current housing situation? I choose not to answer this question patient entered data Are you worried about losing your housing? I choose not to answer this question patient entered data What is the highest level of school that you have finished? 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 No How often do you see or talk to people that you care about and feel close to? (For example: talking to friends on the phone, visiting friends or family, going to confucianist or club meetings) 3 to 5 times a week patient entered data How stressed are you? Stress is when someone feels tense, nervous, anxious, or can't sleep at night because their mind is troubled Somewhat patient entered data In the past year have you sp ent more than 2 nights in a row in a mcfp, residential, mcfp center, or juvenile correctional facility? No patient entered data Are you a refugee? No patient en tered data What country are you from? [place] justo trevino entered data Do you feel physically and emotionally safe where you currently live? Yes patient entered data In the past year, have you b een afraid of your partner or ex-partner? No patient entered data PRAPARE Score: 5 Tobacco Control (Standard) Question Answer Notes Tobacco use: Nonsmoker Problems Problem Type SNOMED Code ICD Code Onset Dates Problem Status W/U Status Risk Notes Problem 245116008 BMI 32.0-32.9,adult (Z68.32) Active confirmed Problem DM - Diabetes mellitus (29656053) DM (diabetes mellitus) (E11.9) Active confirmed Problem 818471788 Lumbar back pain (M54.50) Active confirmed Problem Obesity (843314136) Class 2 obesity in adult (E66.9) Active confirmed Description : Class 2 Obesity in Adult (BMI 35.0-39.9) Problem Hyperlipidemia (52548581) Hyperlipidemia (E78.5) Active confirmed Problem Hypertension (65893450) HTN (hypertension) (I10) Active confirmed Problem Shoulder joint pain (546532878) Bilateral shoulder pain (M25.511) Active confirmed Comment:righ t worse than left, positive lift off test of right arm. no weakness on exam no swelling/red ness or bursa X-ray shows mild OA, labs without polymyalgia rheumatica, ESR and CBC both WWNL start mobic, tylenol only PRN for pain, PVU, agrees with plan If not improving in 2 months, refer to ortho for injections, Vital Signs Heart Rate 75 /min 09/21/2024 Temperature 97.5 degrees Fahrenheit 03/25/2024 Geovanna Tobinando 03/25/2024 04:25:46 PM EST > Respiratory Rate 18 /min 03/25/2024 Alvaro Whitlock 03/25/2024 04:25:46 PM EST > Height-cm 163.83 cm 09/21/2024 Oximetry 98 % 03/25/2024 Omar Whitlock 03/25/2024 04:25:46 PM EST > Blood pressure diastolic 78 mm Hg 09/21/2024 Weight-kg 87.09 kg 09/21/2024 Height 64.5 in 09/21/2024 Blood pressure systolic 122 mm Hg 09/21/2024 Weight 192 lbs 09/21/2024 BMI 32.44 kg/m2 09/21/2024 Encounters Encounter Location Date Provider Diagnosis Main [address] [place] [id number] 12/24/2023 Thu Raissa DM (diabetes mellitu s) E11.9 ; HTN (hypertension) I10 ; Lumbar back pain M54.50 ; Body mass index [BMI] 33.0-33.9, adult Z68.33 ; Obesity, class 1 E66.811 ; Screening for colon cancer Z12.11 and Screening mammogram for breast cancer Z12.31 Dental Main [address] [place] [id number] 01/06/2024 [facility] Encounter for screen ing for dental disorders Z13.84 ; Dental caries into dentine K02.62 and Encounter for dental examination and cleaning without abnormal findings Z01.20 Dental Main [address] [place] [id number] 03/23/2024 [facility] BMI 32.0-32.9,adult Z68.32 ; Dietary counseling Z71.3 ; Exercise counseling Z71.82 and Encounter for dental examination and cleaning without abnormal findings Z01.[address] [place] [id number] 03/25/2024 Thu Raissa DM (diabetes mellitu s) E11.9 ; Hyperlipidemia E78.5 ; HTN (hypertension) I10 ; Chest pain, unspecified type R07.9 ; BMI 33.0-33.9,adult Z68.33 and Obesity, Class I, BMI 30-34.9 E66.811 Dental Main [address] [place], [place] [id number] 09/21/2024 Moni Gómez Encounter for dental examination and cleaning without abnormal findings Z01.20 ; Dietary counseling Z71.3 ; Exercise counseling Z71.82 and BMI 32.0-32.9,adult Z68.32 Main [address] [place], [place] [id number] 01/12/2024 [facility] [address] [place] [id number] 01/26/2024 [facility] [address] [facility] [place] [place] [id number] 03/29/2024 [facility] DM (diabetes mellitu s) E11.9 Main [address] [place] [id number] 03/29/2024 [facility] [address] [place], [place] [id number] 03/29/2024 [facility] [address] [place] [id number] 03/31/2024 [facility] [address] [facility] [place] [place] [id number] 04/06/2024 [facility] [address] [place] [id number] 04/06/2024 [facility] [address] [place] [id number] 04/06/2024 [facility] [address] [facility] [place] [place] [id number] 06/03/2024 [facility] Hyperlipidemia E78.5 Assessments Encounter Date Diagnosis (ICD Code) Assessment Notes Treatment Notes Treatment Clinical Notes Section Notes 12/24/2023 DM (diabetes mellitus) (ICD-10 - E11.9) DM stable. Will continue current medications. Encouraged healthy diet and exercise. F/u 3 months & PRN 12/24/2023 HTN (hypertension) (ICD-10 - I10) HTN stable. Will continue current medications. Encouraged healthy diet and exercise. F/u 3 months & PRN 01/06/2024 Encounter for screening for dental disorders (ICD-10 - Z13.84) 03/23/2024 BMI 32.0-32.9,adult (ICD-10 - Z68.32) 03/25/2024 Hyperlipidemia (ICD-10 - E78.5) HLD stable. Will continue current medications. Encouraged healthy diet and exercise. F/u 6 months & PRN 03/25/2024 DM (diabetes mellitus) (ICD-10 - E11.9) DM stable. Will continue current medications. Encouraged healthy diet and exercise. F/u 6 months & PRN 03/29/2024 DM (diabetes mellitus) (ICD-10 - E11.9) 06/03/2024 Hyperlipidemia (ICD-10 - E78.5) 09/21/2024 Encounter for dental examination and cleaning without abnormal findings (ICD-10 - Z01.20) 09/21/2024 Dietary counseling (ICD-10 - Z71.3) 09/21/2024 Exercise counseling (ICD-10 - Z71.82) 03/25/2024 HTN (hypertension) (ICD-10 - I10) HTN stable. Will continue current medications. Encouraged healthy diet and exercise. F/u 6 months & PRN 03/23/2024 Dietary counseling (ICD-10 - Z71.3) 01/06/2024 Dental caries into dentine (ICD-10 - K02.62) 12/24/2023 Lumbar back pain (ICD-10 - M54.50) Patient was advised to use ice and moist heat as needed. In case of pain, use Tylenol Arthritis 650 mg TID or Motrin 800mg TID PRN - pt was advised to stay hydrated and not take these empty stomach and PVU. Pt was advised to alternate NSAIDs and tylenol to break the cycle of pain. We will refer to pain management/ ortho / Physical therapy if pain does not resolve with symptomatic management and PVU of the plan. Prescription sent for Flexeril PRN 12/24/2023 Body mass index [BMI] 33.0-33.9, adult (ICD-10 - Z68.33) Learning About Healthy Weight material was published Harmful effects of obesity on the human body were discussed with the patient today. Interventions to lose weight were discussed including eating a healthy, balanced diet and increasing activity level by engaging in exercise atleast 30 min x atleast 5 days a week. Educational material was provided and patient was encouraged to use the resources to find the best options for a balanced diet. 01/06/2024 Encounter for dental examination and cleaning without abnormal findings (ICD-10 - Z01.20) 03/23/2024 Exercise counseling (ICD-10 - Z71.82) 03/25/2024 Chest pain, unspecified type (ICD-10 - R07.9) Encouraged pt to go to the ER if she has chest pain that persists or call 911, PVU Pt owns a life alert and lives alone. Pt desires to do testing for functioning of her heart, orders placed. Will call pt w/ results. 09/21/2024 BMI 32.0-32.9,adult (ICD-10 - Z68.32) 03/25/2024 BMI 33.0-33.9,adult (ICD-10 - Z68.33) 03/23/2024 Encounter for dental examination and cleaning without abnormal findings (ICD-10 - Z01.20) 12/24/2023 Obesity, class 1 (ICD-10 - E66.811) Harmful effects of obesity on the human body were discussed with the patient today. Interventions to lose weight were discussed including eating a healthy, balanced diet and increasing activity level by engaging in exercise atleast 30 min x atleast 5 days a week. Educational material was provided and patient was encouraged to use the resources to find the best options for a balanced diet. 03/25/2024 Obesity, Class I, BMI 30-34.9 (ICD-10 - E66.811) 12/24/2023 Screening for colon cancer (ICD-10 - Z12.11) Pt completed at [facility] in 2016, reports no polyps found 12/24/2023 Screening mammogram for breast cancer (ICD-10 - Z12.31) Mammogram done at [facility] Plan Of Treatment Next Appt Details Provider Name:Moni khan, 03/28/2025 10:00:00 AM, [facility] [place], [place], [id number], Insurance Providers Payer Name Payer Address Payer Phone Subscriber Number Group Number Insured Name Patient Relationship to Insured Coverage Start Date Coverage End Date [employer] HMO [address] [place]RE ROMAN [phone] [id number] Chiquita Farfan Self - patient is the insured 4 [facility] [address] [place] [id number] Chiquita Farfan Self - patient is the insured 3 Medical (General) History Medical History History ICD Code Hypertension Diabetes Type 2 Surgical History Surgery Date(Month/Year) Cataract Removal, Insert Prosthetic Lens ,: Left MIGUEL BSO, vert incision, had bowel injury during surgery Spinal Fusion - Lower Back, COMMENTS: Dr Leal 2019 -done due to spinal fx
--- OUTSIDE RECORDS SUMMARY | 2024-09-29 09:46 | XMS_ITS | Patient Health Record ---
Author Organization [facility] in [place] Address [address] [place] [address] Care Team Providers Care Retail Loan Originator Assistant Name Role Phone Carter Camargo Primary Care Provider Mya Cho Unavailable [phone] Allergies No Known Allergies Results Component Value Reference Range Notes GLYCOHEMOGLOBIN A1C Reviewed date:04/28/2024 12:41:59 PM Interpretation: Performing Lab: Notes/Report: [facility] , Glycohemoglobin A1C 6.7 4.5-6.2 % ADA RECOMMENDED LIMIT 4.0 - 6.0 ADA THERAPEUTIC TARGET < 7.0 ACTION SUGGESTED > 7.0 Estimated Average Glucose 146 Performing Lab: see note - [facility] LB IRON Reviewed date:04/28/2024 12:41:59 PM Interpretation: Performing Lab: Notes/Report: [facility] , Iron 67.0 50.0-170.0 ug/dL Performing Lab: see note - [facility] LB TSH Reviewed date:04/28/2024 08:17:13 PM Interpretation: Performing Lab: Notes/Report: [facility] , Thyroid Stimulating Hormone 1.102 0.358-3.740 uIU/mL Performing Lab: see note - [facility] LB NM natty perf SPECT rest str Reviewed date:07/21/2024 05:45:28 PM Interpretation: Performing Lab: Notes/Report: Source Facility: [place] [address] [facility] [place] [id number] Nuclear Medicine Report Signed Patient: CHIQUITA FARFAN MR#: [id number] : 1955 Acct:[id number] Age/Sex: 69 / F ADM Date: 07/19/24 Loc: NM Attending Dr: Hayden Camargo M.D. Ordering Physician: Hayden Camargo M.D. Date of Service: 07/19/24 Procedure(s): NM natty perf SPECT rest str Accession Number(s): [id number] cc: Hayden Camargo M.D. Patient Name: CHIQUITA FARFAN MR#: [id number] : 1955 Exam Date: 07/19/2024 Ordering Doctor: DR HAYDEN CAMARGO . RADIOLOGY REPORT PROCEDURE: NM NATTY PERF SPECT REST STR COMPARISON: None. INDICATIONS: DYSPNEA TECHNIQUE: Exam Description: Rest/Stress one day protocol gated SPECT Rest Imagin.5 mCi Tc-99m Cardiolite IV on 07/19/2024 Stress Imaging 29.9 mCi Tc-99m Cardiolite IV on 07/19/2024 Exercise Protocol: 0.4 mg Lexiscan given IV Heart Rate (bpm): Rest: 61 Max: 107 PMHR: 71 Blood Pressure: Rest: 142/85 Max: 144/78 Symptoms: Rest and peak stress ECG findings were pending, and the exercise portion of the study was pending per attending physician [facility]. For more details, please see separate cardiac stress test report. FINDINGS: QUALITY OF STUDY: Good PERFUSION DEFECT: LOCATION: N/A SIZE: N/A SEVERITY: N/A TYPE: N/A WALL MOTION: Normal wall motion LV SIZE: 55 mL TID / TCD: 0.9 LVEF: Calculated EF 74%. SUMMARY: Myocardial perfusion imaging study is normal CONCLUSION: 1. Myocardial perfusion is normal with soft tissue attenuation 2. Global left ventricular systolic function is normal 3. No evidence of transient ischemic dilatation Dictated by: Shamar Castillo M.D. on 07/21/2024 at 16:32 Approved by: Shamar Castillo M.D. on 07/21/2024 at 16:34 Dictated By: Shamar Castillo M.D. Signed By: 07/21/241634 DD/ 33 TD/TT: Veneer Gluer: [place] [address] Nuclear Medicine Report Signed Patient: CHIQUITA FARFAN MR#: [id number] : 1955 Acct:[id number] Age/Sex: 69 / F ADM Date: 07/19/24 Loc: DC Attending Dr: Hayden Camargo M.D. Ordering Physician: Hayden Camargo M.D. Date of Service: 07/19/24 Procedure(s): NM natty perf SPECT rest str Accession Number(s): [id number] cc: Hayden Camargo M.D. Patient Name: CHIQUITA FARFAN MR#: [id number] : 1955 Exam Date: 07/19/2024 Ordering Doctor: DR HAYDEN CAMARGO . RADIOLOGY REPORT PROCEDURE: NM NATTY PERF SPECT REST STR COMPARISON: None. INDICATIONS: DYSPNEA TECHNIQUE: Exam Description: Rest/Stress one day protocol gated SPECT Rest Imagin.5 mCi Tc-99m Cardiolite IV on 07/19/2024 Stress Imaging 29.9 mCi Tc-99m Cardiolite IV on 07/19/2024 Exercise Protocol: 0.4 mg Lexiscan given IV Heart Rate (bpm): Rest: 61 Max: 107 PMHR: 71 Blood Pressure: Rest: 142/85 Max: 144/78 Symptoms: Rest and peak stress ECG findings were pending, and the exercise portion of the study was pending per attending physician [facility]. For more details, please see separate cardiac stress test report. FINDINGS: QUALITY OF STUDY: Good PERFUSION DEFECT: LOCATION: N/A SIZE: N/A SEVERITY: N/A TYPE: N/A WALL MOTION: Normal wall motion LV SIZE: 55 mL TID / TCD: 0.9 LVEF: Calculated EF 74%. SUMMARY: Myocardial perfusion imaging study is normal CONCLUSION: 1. Myocardial perfusion is normal with soft tissue attenuation 2. Global left ventricular systolic function is normal 3. No evidence of transient ischemic dilatation Dictated by: Shamar Castillo M.D. on 07/21/2024 at 16:32 Approved by: Shamar Castillo M.D. on 07/21/2024 at 16:34 Dictated By: Shamar Castillo M.D. Signed By: 07/21/241634 DD/ 33 TD/TT: Veneer Gluer: Bri Knight Reviewed date:05/06/2024 09:04:58 PM Interpretation: Performing Lab: Notes/Report: [facility] , Protein, Total 7.9 6.0-8.5 g/dL Albumin 4.1 2.9-4.4 g/dL Ekkzy-7-Thktrvrs 0.2 0.0-0.4 g/dL Kxlar-8-Bitiqcmn 0.7 0.4-1.0 g/dL Beta Globulin 1.0 0.7-1.3 g/dL Gamma Globulin 1.9 0.4-1.8 g/dL M-Kwasi 1.2 Not Observed g/dL Globulin, Total 3.8 2.2-3.9 g/dL A/G Ratio 1.1 0.7-1.7 Please note: Comment . mail, or professional system administrator delivery. Property Manager: Kwadwo Kinney PhD, Phone: [phone] Performed at: [facility] Protein electrophoresis scan will follow via computer, [address] [place] [phone] Performing Lab: see note LC - [facility] LB T4 Reviewed date:04/28/2024 08:17:13 PM Interpretation: Performing Lab: Notes/Report: [facility] , T4 Thyroxine 7.30 4.80-13.90 ug/dL Performing Lab: see note ML - [facility] LB PROF 14(COMP METB) Reviewed date:04/28/2024 08:17:13 PM Interpretation: Performing Lab: Notes/Report: [facility] , Sodium 141 136-145 mmol/L Potassium 4.2 3.5-5.1 mmol/L Chloride 104 98-107 mmol/L Carbon Dioxide 25.7 21.0-32.0 mmol/L Anion Gap 15.5 Glucose 138 74-106 mg/dL Blood Urea Nitrogen 15.0 7.0-18.0 mg/dL Creatinine 0.97 0.55-1.02 mg/dL Estimated GFR ( Migdalia >60 >=60 mL/min/1.73m 2 Estimated GFR (Non- Shanna 57 >=60 mL/min/1.73m 2 BUN Creatinine Ratio 15.5 Calcium 9.6 8.5-10.1 mg/dL Bilirubin Total 0.2 0.2-1.0 mg/dL Aspartate Amino Transferase 18 15-37 U/L Alanine Aminotransferase 28 14-59 U/L Alkaline Phosphatase 75 46-116 U/L Total Protein 8.6 6.4-8.2 g/dL Albumin Level 3.9 3.4-5.0 g/dL Globulin 4.7 Albumin Globulin Ratio 0.8 Performing Lab: see note ML - [facility] LB LIPID PROFILE Reviewed date:04/28/2024 08:17:13 PM Interpretation: Performing Lab: Notes/Report: [facility] , Triglycerides 56 <=150 mg/dL Cholesterol 130 <=200 mg/dL HDL Cholesterol 54 40-60 mg/dL > or =60 mg/dl - LOW CARDIOVASCULAR RISK <40 mg/dl - HIGH CARDIOVASCULAR RISK LDL Cholesterol Calculated 64.8 <100 mg/dl OPTIMAL >190 mg/dl VERY HIGH 100-129 mg/dl NEAR OR ABOVE OPTIMAL 160-189 mg/dl HIGH 130-159 mg/dl BORDERLINE HIGH VLDL CHOLESTEROL 11.2 Chol HDL Ratio 2.4 4.4 - 7.1 AVERAGE RISK 3.3 - 4.4 LOW RISK >11.0 HIGH RISK 7.1 - 11.0 MODERATE RISK Performing Lab: see note ML - [facility] LB FREE T3 Reviewed date:04/28/2024 08:17:13 PM Interpretation: Performing Lab: Notes/Report: [facility] , Free T3 2.66 2.18-3.98 pg/mL Performing Lab: see note ML - [facility] LB CBC AUTO DIFF Reviewed date:04/28/2024 12:41:59 PM Interpretation: Performing Lab: Notes/Report: [facility] , White Blood Count 4.6 4.0-11.0 10 3/uL Red Blood Count 4.08 4.20-5.40 10 6/uL Hemoglobin 12.0 12.0-16.0 g/dL Hematocrit 36.5 36.0-48.0 % Mean Corpuscular Volume 89.5 81.0-99.0 fL Mean Corpuscular Hemoglobin 29.4 26.7-34.0 pg Mean Corpuscular HGB Conc 32.9 29.9-35.2 g/dL Red Cell Distribution Width 12.4 11.0-15.0 % Platelet Count 251 150-450 10 3/uL Mean Platelet Volume 10.6 9.5-13.5 fL Neutrophils Percent Auto 48.6 43.0-75.0 % Lymphocytes Percent Auto 42.2 20.5-60.0 % Monocytes Percent Auto 6.1 1.7-12.0 % Eosinophils Percent Auto 2.2 0.9-7.0 % Basophils Percent Auto 0.9 0.2-2.0 % Immature Granulocytes Pct Auto 0.0 0.0-0.5 % Neutrophils Absolute Auto 2.2 1.4-6.5 10 3/uL Lymphocytes Absolute Auto 1.9 1.2-3.8 10 3/uL Monocytes Absolute Auto 0.3 0.3-0.8 10 3/uL Eosinophils Absolute Auto 0.1 0.0-0.7 10 3/uL Basophils Absolute Auto 0.0 0.0-0.1 10 3/uL Immature Granulocytes Abs Auto 0.00 0.00-0.03 10 3/uL Performing Lab: see note ML - [facility] LB Reason For Referral Reason M Kwasi high Diagnosis 1 Hyperproteinemia (E8 8.09) Referral Organization [facility] Referring Provider First Name Carter Referring Provider Last Name Agueda [facility] Referred Provider Mya Cho Referred Address [address] [address],[place], [place],[address], Referred Provider Specialty Hematology/O ncology Referral Priority Routine Diagnosis 1 Hyperproteinemia (E8 8.09) Referral Organization [facility] Referring Provider First Name Carter Referring Provider Last Name Agueda Referring Provider [facility] Referred Provider Specialty Hematology/O ncology Referral Priority Routine Medications Medication SIG (Take, Route, Frequency, Duration) Notes Start Date End Date Status amLODIPine Besylate 10 MG 1 tablet Orall y Once a day for 90 days Active Calcium 600 MG 1 tablet with meals Orally Twice a day for 30 days 08/09/2024 Active metFORMIN HCl 850 MG 1 tablet with a mp l Orally Twice a day for 90 days Active Rosuvastatin Calcium 10 MG 1 tablet Oral ly Once a day for 90 days Active Vitamin D 50 MCG (1999) 1 tablet Oral ly Once a day for 30 days 08/09/2024 Active Timolol Maleate 0.25 % Ophthalmic for 50 Days Active Social History Tobacco Use: Social History Observation Description Date Details (start date - stop date) Never Smoker NA - NA Tobacco Control (Standard) Question Answer Notes Tobacco use: Nonsmoker AUDIT-C (Standard) Question Answer Notes Did you have a drink containing alcohol in the p ast year? No Points 0 Interpretation Negative Problems Problem Type SNOMED Code ICD Code Onset Dates Problem Status W/U Status Risk Notes Problem Senile osteoporosis (77226345) Senile osteoporosis (M81.0) Active confirmed Problem Hypertension (35010700) Hypertension (I10) Active confirmed Problem Gastroesophageal reflux disease (797066781) GERD (gastroesophageal reflux disease) (K21.9) Active confirmed Problem Osteopenia (296310156) Osteopenia (M85.80) Active confirmed Problem Valvular heart disease (984999) Valvular heart disease (I38) Active confirmed Problem Hyperproteinemia (59900043) Hyperproteinemia (E88.09) Active confirmed Problem Difficulty swallowin g (265360198) Difficulty swallowing (R13.10) Active confirmed Problem High cholesterol (13290166) High cholesterol (E78.00) Active confirmed Problem Hypercholesterolemia (23268078) Hypercholesterolemia (E78.00) Active confirmed Problem 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 Problem Type II diabetes mellitus without complication (534725794) Diabetes (E11.9) Active confirmed Problem Diabetes mellitus (41348952) Diabetes mellitus (E11.9) Active confirmed Vital Signs Blood pressure diastolic 80 mm Hg 06/28/2024 Height 65 in 06/28/2024 Blood pressure systolic 130 mm Hg 06/28/2024 Weight 196.6 lbs 06/28/2024 BMI 32.71 kg/m2 06/28/2024 Procedures Procedure Date Ordered Date Performed Result Body Sit e *CARDIO Stress Test - Lexiscan Nuclear 06/28/2024 N/A Encounters Encounter Location Date Provider Diagnosis [facility] [address] [place] [address] 04/20/2024 Carter Camargo [facility] [address] [place] [address] 04/28/2024 Carter Louy [facility] [address] [place] [facility] [place] [address] 04/28/2024 Carter Louy Protein deficiency E 46 [facility] [address] [place] [address] 05/06/2024 Carter Hoy Hyperproteinemia E88 .09 [facility] [address] [place] [place] [address] 05/19/2024 Carter Louy Difficulty swallowin g R13.10 [facility] [address] [place] [facility] [address] 06/02/2024 Carter Camargo [facility] [address] [place] [place] [address] 06/21/2024 Carter Camargo [facility] [address] [place] [place] [address] 06/22/2024 Carter Louy Senile osteoporosis M81.0 [facility] [address] [place] [address] 06/28/2024 Carter Louy [facility] [address] [place] [place] [address] 07/19/2024 Carter Camargo [facility] [address] [place] [place] [address] 08/08/2024 Carter Camargo [facility] [address] [place] [address] 08/09/2024 Carter Camargo [facility] [address] [place] [address] 04/20/2024 Carter Hoy Hypertension I10 ; D iabetes E11.9 ; Valvular heart disease I38 and Hypercholesterolemia E78.00 [facility] [address] [place] [place] [address] 05/10/2024 Carter Hoy Hyperproteinemia E88 .09 [facility] [address] [place] [place] [address] 05/19/2024 Carter Louy GERD (gastroesophage al reflux disease) K21.9 [facility] [address] [place] [address] 06/28/2024 Carter Hoy Dyspnea R06.00 ; Sadie betes E11.9 and Low back pain at multiple sites M54.50 Assessments Encounter Date Diagnosis (ICD Code) Assessment Notes Treatment Notes Treatment Clinical Notes Section Notes 04/20/2024 Hypertension (ICD-10 - I10) 04/20/2024 Diabetes (ICD-10 - E11.9) 05/10/2024 Hyperproteinemia (IC D-10 - E88.09) See Dr Marquis dickens 05/19/2024 GERD (gastroesophage al reflux disease) (ICD-10 - K21.9) try to get Ba swallow at [facility] or [facility] 06/28/2024 Dyspnea (ICD-10 - R06.00) 06/28/2024 Diabetes (ICD-10 - E11.9) 04/28/2024 Protein deficiency (ICD-10 - E46) 05/06/2024 Hyperproteinemia (IC D-10 - E88.09) 05/19/2024 Difficulty swallowin g (ICD-10 - R13.10) 06/22/2024 Senile osteoporosis (ICD-10 - M81.0) 06/28/2024 Low back pain at multiple sites (ICD-10 - M54.50) 04/20/2024 Valvular heart disea se (ICD-10 - I38) 04/20/2024 Hypercholesterolemia (ICD-10 - E78.00) Plan Of Treatment Pending Test Test Name Order Date Barium Swallow 05/19/2024 Barium : Upper GI Series 05/19/2024 HEMOGLOBIN A1C (GLYCO) 04/20/2024 IRON, TOTAL 04/20/2024 LIPID PANEL (CHOL/TRIG/HDL/LDL) 04/20/19 25 CBC WITH DIFF 04/20/2024 SERUM PROTEIN ELECTROPHORESIS 04/28/2024 TOTAL PROTEIN SERUM 04/28/2024 XR DEXA BONE DENSITY 06/22/2024 XR DEXA BONE DENSITY 06/28/2024 THYROID PANEL (T4/TSH/FREE T3) 5 *CARDIO Stress Test - Lexiscan Nuclear 0 06/28/2024 CMP (COMP MET ONEIL) w/eGFR CKD-EPI 2024 Insurance Providers Payer Name Payer Address Payer Phone Subscriber Number Group Number Insured Name Patient Relationship to Insured Coverage Start Date Coverage End Date [employer] [address] [place] [phone] [id number] Chiquita Farfan Self - patient is the insured Medications Administered Medication Instructions Date of Administration Dosage Notes Triamcinolone 40 mg/ml 06/28/2024 120 mg Medical (General) History Medical History History ICD Code Diabetes mellitus E11.9 High cholesterol E78.00 Hypertension I10 Surgical History Surgery Date(Month/Year) Hysterectomy 2004 Back Surgery echo 04/05/24
--- OUTSIDE RECORDS SUMMARY | 2024-09-29 09:46 | XMS_ITS | Encounter Summary ---
Author Organization [facility] Healthcare Address [address] [facility] [place] [address] Care Team Providers Care Pet Sitter Name Role Phone Unallocated, Jorge Mensah MD Primary Care Provi shaji Shannan Rosas MD Unavailable Encounter Details Date Type Department Care Team (Late st Contact Info) Description 04/18/2024 Abstract [facility] [address] [place] [id number] Shannan Rosas MD [address] [place], [place] [id number] Social History Tobacco Use Types Packs/Day Years Used Date Smoking Tobacco: Never Alcohol Use Standard Drinks/Week Comments Never 0 (1 standard drink = 0.6 oz pur e alcohol) Comments Unknown Sex and Gender Information Value Date Recorded Sex Assigned at Not on file Legal Sex Female 7:25 PM EDT Gender Identity Not on file Sexual Orientation Not on file documented as of this encounter Plan of Treatment Not on file documented as of this encounter Visit Diagnoses Not on filedocumented in this encounter Care Teams Pet Sitter Relationship Specialty Start Date End Date Unallocated, Jorge Mensah MD [address] [facility] [place] [address] PCP - General Family Medicine 02/12/23 Shannan Rosas MD [address] [place], [place] [id number] PCP - Devoted 03/03/24 documented as of this encounter
--- OUTSIDE RECORDS SUMMARY | 2024-09-29 09:46 | XMS_ITS | Encounter Summary ---
Author Organization [facility] Healthcare Address [address] [place] [address] Care Team Providers Care Managing Cognitive Engineer Name Role Phone Unallocated, Dean Provider Primary Care Provi shaji Shannan Garvey MD Unavailable [phone] Shannan Rosas MD Unavailable Reason for Visit * Reason Comments Med Refill Encounter Details Date Type Department Care Team (Late st Contact Info) Description 12/23/2023 Refill [facility] Podiatry [address] [place] [address] Teena Salmeron DPM [address] [place] [address] Plantar fasciitis, bilateral Social History Tobacco Use Types Packs/Day Years [...] on file documented as of this encounter Miscellaneous Notes * Telephone Encounter - Teena Salmeron DPM - 12/30/2023 8:40 AM EDT Approving, but needs appt for additional refills. documented in this encounter Plan of Treatment Not on file documented as of this encounter Visit Diagnoses Diagnosis Plantar fasciitis, bilateral documented in this encounter Care Teams Managing Cognitive Engineer Relationship Specialty Start Date End Date Unallocated, N[place] Provider, [address] [place] [address] PCP - General Family Medicine 02/12/23 Shannan Garvey MD PCP - Devoted 03/03/23 03/02/24 Shannan Rosas MD [address] [place] [address] PCP - Devoted 03/03/24 documented as of this encounter
--- OUTSIDE RECORDS SUMMARY | 2024-09-29 09:46 | XMS_ITS | Clinical Summary ---
Author Organization [facility] Healthcare Address [address] [place] [address] Care Team Providers Care Ring Rolling Machine Operator Name Role Phone Unallocated, [facility] Provider Primary Care Provi shaji Shannan Rosas MD Unavailable Allergies No known active allergies Medications amLODIPine (Norvasc) 10 MG tablet Active cinnamon 500 MG capsule as directed Orally Active metFORMIN (Glucophage) 850 MG tablet Active rosuvastatin (Crestor) 10 MG tablet Active meloxicam (Mobic) 15 MG tabletIndicatio ns:Plantar fasciitis, bilateral TAKE 1 TABLET BY MOUTH DAILY FOR 21 DAYS 21 tablet 12/30/2023 Active Active Problems No known active problems Family History Relation Name Status Comments Father Mother Social History Tobacco Use Types Packs/Day Years Used Date Smoking Tobacco: Never Tobacco Cessation:Counseling Given: Not Answered Alcohol Use Standard Drinks/Week Comments Never 0 (1 standard drink = 0.6 oz pur e alcohol) Comments Unknown Sex and Gender Information Value Date Recorded Sex Assigned at Not on file Legal Sex Female 7:25 PM EDT Gender Identity Not on file Sexual Orientation Not on file Last Filed Vital Signs Vital Sign Reading Time Taken Comments Blood Pressure 126/76 05/03/2021 12:00 PM EST Pulse - - Temperature - - Respiratory Rate - - Oxygen Saturation - - Inhaled Oxygen Concentration - - Weight 89.4 kg (197 lb) 10/23/2023 3:38 PM EDT Height 165.1 cm (5' 5 ) 10/23/2023 3:38 PM EDT Body Mass Index 32.78 10/23/2023 3:38 PM EDT Plan of Treatment Health Maintenance Due Date Last Done Comments CT Colonography 1955 Colonoscopy 1955 Colorectal Cancer Screening 1955 Diabetes: Hemoglobin A1C 1955 FIT-DNA 1955 FIT 1955 FOBT 1955 Medicare Annual Wellness (AWV) 1955 Sigmoidoscopy 1955 Diabetes: Retinopathy Screening 1963 Diabetes: Urine Protein Screening 1972 Pneumococcal Vaccine: 65+ Years (1 of 2 - PCV) 973 Mammogram 1993 Influenza Vaccine (#1) 2024 Insurance [employer] Care Teams Ring Rolling Machine Operator Relationship Specialty Start Date End Date Unallocated, Noms Rodrick, [address] [place] [address] PCP - General Family Medicine 02/12/23 Shannan Rosas MD [address] [place] [address] PCP - [facility]oted 03/03/24
== END 2024-09-29 09:44 | disposition home or self-care (01) ==
LOC: MAMMO 09:43
PROVIDERS: PCP Family Medicine; Visit Provider Family Medicine
DX: Z12.31 Encounter for screening mammogram for malignant neoplasm of breast (principal); R92.8 Other abnormal and inconclusive findings on diagnostic imaging of breast
CPT/HCPCS: 77063; 77067

== ENCOUNTER 2024-12-22 09:45 | Outpatient (OUT) | payer OTHER, SELFPAY ==
--- OUTSIDE RECORDS SUMMARY | 2024-12-22 09:52 | XMS_ITS | CCD ---
Author Organization [facility] CliniSyks Care Team Providers Care Criminology Teacher Name Role Phone PHYSICIAN, DEFAULT Unavailable Unavailable PHYSICIAN, DEFAULT Unavailable Unavailable SADI ROSAS Admitting Unavailable SADI ROSAS Attending Unavailable [facility] Primary Care Unavailable WEST, DR BENJAMIN Marshall Consulting Unavailable SADI ROSAS Consulting Unavailable LISAMED, DR AN Admitting Unavailable AHMED, DR AN Attending Unavailable REQUEST, DR SHINE LISTED Primary Care Unavaila de FUNES, DR SONI Mulligan Consulting Unavailable AHMED, DR AN Consulting Unavailable TEENA CARRILLO Attending Unavailable Unallocated Dean ELIAS Provider Primary Care Provi shaji Shannan Garvey MD Unavailable [phone] Katherine AUTOMOBILE MECHANIC APPRENTICE-RED HAT OPEN STACK ADMINISTRATOR, [place] Primary Care Provider Hayden Camargo MD Primary Care Provider [phone] CHRISTOPHER RODRIGUEZ Referring Unavailable [facility] [place] Primary Care Unavailable ZEINA CONNORS N Attending Unavailable KATHERINE, SID Referring Unavailable KATHERINE, [place] Primary Care Unavailable DORY, ZEINA N Attending Unavailable DORY, PASTRANA N Referring Unavailable HOY, HAYDEN M Primary Care Unavailable YOSVANYY, HAYDEN M Referring Unavailable HOY, HAYDEN M Primary Care Unavailable DORY, PASTRANA N Referring Unavailable HOY, HAYDEN M Primary Care Unavailable DORY, ZEINA N Attending Unavailable KATHERINE, SID Referring Unavailable HOY, HAYDEN M Primary Care Unavailable Hayden Camargo MD Primary Care Provider [phone] Hayden Camargo MD Attending Provider Hayden Camargo Attending Unavailable Agueda, Hayden M Admitting Unavailable Hoy, Hayden M Primary Care Unavailable Hayden Camargo Attending Unavailable Hayden Camargo Admitting Unavailable Hayden Camargo Primary Care Unavailable Medications Current Medications MedicationDrug Class(es)DatesSig (Normalized)Sig (Original)acetaminophen 500 mg oral tablet (6 sources)acetaminophen (TYLENOL EXTRA STRENGTH) 500 mg tablet ActiveamLODIPine 10 mg oral tablet (8 sources)Dihydropyridine Calcium Channel BlockeramLODIPine (NORVASC) 10 mg tablet Activecalcium carbonate 1500 mg oral tablet (2 sources)Start: 39-90-1649nadb 1 tablet by mouth once daily at breakfast calcium carbonate (OS-KINGS) 600 mg elemental (1,500 mg) tablet Take 1 tablet (600 mg total) by mouthdaily with breakfast. 08/09/2024 Activecalcium carbonate 1250 mg / cholecalciferol 200 unt oral tablet (2 sources)Vitamin Dtake 1 tablet by mouth once in the morningcalcium carbonate- vitamin D3 (OSCAL 500 + D) 500 mg (1,250 mg) - 200 units per tablet Take 1 tabletby mouth in the morning and 1 tablet in the evening. Take with meals. ActiveCinnamon Bark (8 sources)cinnamon bark extract 500 mg tablet Activecinnamon 500 MG capsule as directed Orally Activeirbesartan 150 mg oral tablet (6 sources)Angiotensin 2 Receptor Blockertake 1 tablet by mouth once daily irbesartan (AVAPRO) 150 mg tablet Take 150 mg by mouth nightly. Active latanoprost 0.05 mg/ml ophthalmic solution (6 sources)Prostaglandin Analogtake 1 drop(s) into the eye(s) once daily latanoprost (XALATAN) 0.005 % ophthalmic solution 1 drop nightly. Active meclizine hydrochloride 25 mg chewable tablet (6 sources)Antiemeticmeclizine (ANTIVERT) 25 mg tablet Chew 25 mg and swallow 3 (three) times a day as needed for dizziness. Activemeloxicam 15 mg oral tablet (2 sources)Nonsteroidal Anti-inflammatory DrugStart: 10-23-2023 End: 83-62-6278sfde 1 tablet by mouth once dailymeloxicam (Mobic) 15 MG tablet Indications: Plantar fasciitis, bilateral Take 1 tablet (15 mg) by mouth Daily for 21 days 21 tablet 10/23/2023 11/13/2023 ActivemetFORMIN hydrochloride 850 mg oral tablet (8 sources)BiguanidemetFORMIN (GLUCOPHAGE) 850 mg tablet Ncwdma71 hr metoprolol succinate 50 mg extended release oral tablet (6 sources)beta-Adrenergic Blockertake 1 tablet by mouth once dailymetoprolol succinate XL (TOPROL-XL) 50 mg 24 hr tablet Take 50 mg by mouth daily. Active rosuvastatin calcium 10 mg oral tablet (8 sources)HMG-CoA Reductase Inhibitorrosuvastatin (CRESTOR) 10 mg tablet Active timolol 2.5 mg/ml ophthalmic solution (6 sources)beta-Adrenergic Blockertimolol (TIMOPTIC) 0.25 % ophthalmic solution Active Problems Active Problems Problem ClassificationProblemDateDocumented DateEpisodic/ChronicDiabetes mellitus with complications (2 sources)Type 2 diabetes mellitus with other diabetic neurological complication; Translations: [Diabetes with neurological manifestations, type II or unspecified type, not stated as uncontrolled]36-32-8485StqnbnvMufeymkvu of unspecified nature or uncertain behavior (12 sources)Monoclonal gammopathy (clinical); Translations: [Monoclonal gammopathy]Onset: [id number] breast conditions (3 sources)Calcification of breast; Translations: [Mammographic calcification found on diagnostic imaging of breast]Onset: 283769-17-2625Inafvqei Osteoporosis (1 source)Age-related osteoporosis without current pathological fracture; Translations: [Age-related osteoporosis without current pathological fracture] Onset: 46-10-8517RghgzdzEtwrt hematologic conditions (10 sources)Hyperproteinemia; Translations: [Abnormality of plasma protein, unspecified]Onset: 077411-58-4917VwlgygenQiogf nutritional; endocrine; and metabolic disorders (3 sources)Hyperproteinemia; Translations: [Other disorders of plasma-protein metabolism, not elsewhere classified]34-86-7406TwzbkdpUwxas nutritional; endocrine; and metabolic disorders (1 source)Other disorders of plasma-protein metabolism, not elsewhere classified; Translations: [Other disorders of plasma-protein metabolism, not elsewhere classified]Onset: 13-50-6237EqtfuzwZmrnw screening for suspected conditions (not mental disorders or infectious disease) (5 sources)Encounter for screening mammogram for malignant neoplasm of breast; Translations: [Other abnormal and inconclusive findings on diagnostic imaging of breast]Onset: 89-39-1320YvihjgwxLfyiodrfrocj (1 source)New PatientOnset: 06-11-2024 Past or Other Problems Problem ClassificationProblemDateDocumented DateEpisodic/ChronicConditions associated with dizziness or vertigo (1 source)Dizziness and giddiness; Translations: [Dizziness and giddiness]Onset: 62-59-4422DfbopaqhWuzczld and fatigue (1 source)Other fatigue; Translations: [Other fatigue]Onset: 01-74-2506Tkczhjnh Nausea and vomiting (1 source)Nausea; Translations: [Nausea]Onset: 39-66-8012PsahlufkWptwd connective tissue disease (2 sources)Bilateral plantar fasciitis; Translations: [Plantar fascial fibromatosis]69-50-0517ZiizodudAliav connective tissue disease (4 sources)Deformity of lower limb; Translations: [Contracture of muscle, right lower leg]51-65-6412FuzvrsuzXvszh hematologic conditions (1 source)Abnormality of plasma protein, unspecified; Translations: [Abnormality of plasma protein, unspecified]Onset: 93-71-9361Lxixdxuk Results Test NameValueInterpretationReference RangeFacilityMammography reportOrdered By: Andrey Puentes on 00-50-6048Amqxkfpoeo imaging [facility] [address] [place] [address] Mammography Report Signed with Addenda Patient: Pietro Arango MR#: [id number] : 1955 Acct:[id number] Age/Sex: 69 / F Adm Date: 5 Loc: [place] Room: Type: [facility] Attending Dr: Hayden Camargo MD Ordering Provider: Hayden Camargo MD Date of Service: 10/21/24 Procedure(s): MM biopsy LT 1st lesion stereo; MM post biopsy LT w/CAD; MM speciman imaging post bx Accession Number(s): ([id number]) MM/MM biopsy LT 1st lesion stereo: R92.8 ([id number]) MM/MM post biopsy LT w/CAD: CLIP PLACEMENT ([id number]) MM/MM speciman imaging post bx: POST BIOPSY Copies to: Hayden Camargo MD~ ADDENDUM 1 Final pathology: Fibroadenoma with associated microcalcifications. No evidence of malignancy. Theseresults are concordant. Follow-up with diagnostic mammogram of the left breast in 6 months is recommended to assess for stability. Impression dictated by: Andrey Puentes M.D. 10/22/2024 1:06 PM Dictation Location: [place] [address] Addendum Dictated By: Andrey Puentes II, MD Addendum Signed By: 10/22/241305 Addendum Cosigned By: DD/ TD/TT: 10/22/24 STEREOTACTIC LEFT BREAST BIOPSY WITH VACUUM ASSISTED NEEDLE AND MARKING CLIP PLACEMENT: CLINICAL INDICATION: Atypical microcalcifications in left breast TECHNIQUE AND FINDINGS: The procedure, associated risks, benefits were discussed with the patient and written, informed consent was obtained. With the patient's in craniocaudal compression, support services coordinator images of the breast were performed. The calcifications of concern within the upper outer quadrant of the left breast was visualized. Stereotactic imaging was performed and the coordinates of the lesion were calculated. Following sterile preparation and local anesthetization with lidocaine, an 9-gauge [employer] vacuum assisted core biopsy needle was advanced into the breast. Documentation of the needle positionwas performed both before and after firing of the needle. Multiple core biopsy specimens wereobtained of the area of concern. Before the needle was removed, amarking clip was placed. The postbiopsy stereotactic image confirmed a biopsy clip amongst calcifications in the upper outer quadrant.There were no immediatepostprocedural complications. MM/MM post biopsy LT w/CAD IMPRESSION: TECHNICALLY SUCCESSFUL LEFT BREAST STEREOTACTIC BIOPSY ENUMERATED ABOVE. LEFT BREAST SPECIMEN: Specimen radiograph of the tissue samples was obtained. There are multiple core tissue samples. Calcifications are seen within some of the tissue cores. IMPRESSION: STATUS POST SUCCESSFUL SAMPLING OF LEFT BREAST CALCIFICATIONS DIAGNOSTIC MAMMOGRAMS: Craniocaudal and mediolateral oblique views of the left breast were performed post stereotactic biopsy using low dose digital technique. Comparison is made to the previous mammograms dated 09/29/2024, 09/03/2003, and 08/14/2022. A marking clip is noted in the upper outer quadrant of the left breast in the area of the previously identifiedcalcifications. A small amount of air is noted in the region of the biopsy. No significant hematomais seen. The remainder of the left breast is unremarkable. IMPRESSION: STATUS POST SUCCESSFUL STEREOTACTIC REMOVAL OF CLUSTERED MICROCALCIFICATIONS IN THE UPPER OUTER QUADRANT OF THE LEFT BREAST. RESULT CODE: NL Impression dictated by: Andrey Puentes M.D. 10/21/2024 11:39 AM Dictation Location: DWS01 Dictated By: Andrey Puentes II, MD 10/21/241135 Signed By: 10/21/24 091 [facility] Work Phone: Pathology study report documentOrdered By: Nahum Dunbar on 34-72-5470Ekrqnfofs studyKettering Health [facility] Other Lon 10-21-2024L Specimen: [id number] Received: 10/21/24 Status: JERALD Dalton Num: [id number] Spec Type: Surgical Subm Dr: Andrey Puentes II, MD Tissues: A Breast Core CALCIFICATIONS (LEFT BREAST) Procedures: Zeenat, Gross/Micro L4 Age/ Patient Sex Location Account Attending Physician Pietro Arango 69/F [place] [id number] Hayden Camargo MD SPEC NUM: [id number] RECD: 10/21/24 STATUS: JERALD HOYT NUM: [id number] JENNIFER: 10/21/[address] [facility] [address]: Andrey Puentes II, MD ENTERED: 10/21/[address]: Hayden Camargo MD SPEC TYPE: Surgical DEPT: S ORDERED: HE/8, Gross/Micro L4 ORDERED: HE/8, Gross/Micro L4 Pathological Diagnosis Left breast, calcifications at 1:00, 6 cm FN, stereotactic core biopsy: - Fibroadenoma with associated microcalcifications. - No evidence of malignancy identified. Clinical Information Left breast calcifications 1:00, 6 cm from nipple Gross Description Received in formalin labeled with the patients name, date of , and left breast are two Telfa pads with eight pale cunha to yellow foster, delicate needle core biopsy segments, 0.7-1.9 cm in length with detached fragments of fibrofatty tissue, 1.3 x 1 x 0.3 cm in aggregate. The tissue from the top Telfa pad is entirely submitted in A1?A2 with the remainder of the specimen entirely submitted in A3?A4. Fixation time: Time tissue removed from patient: 1124 Time specimen placed in formalin: 1132 Cold ischemic time: 8 minutes Total fixation time: 6 hours (4, ns, Y14-4996 A) ANGEL Specimen: [id number] Received: 10/21/24 Status: ZAIDAGene Hoyt Num: [id number] Spec Type: Surgical Subm Dr: Andrey Puentes II, MD Tissues: A Breast Core CALCIFICATIONS (LEFT BREAST) Procedures: Blas CEBALLOS/Micro L4 Patient: Pietro Arango [id number] (Continued) Specimen: [id number] Received: 10/21/24 (Continued) Signed (signature on file) Nahum Dunbar MD 10/22/24 1226 Specimen: [id number] Received: 10/21/24 Status: JERALD Hoyt Num: [id number] Spec Type: Surgical Subm Dr: Andrey Puentes II, MD Tissues: A Breast Core CALCIFICATIONS (LEFT BREAST) Procedures: HE/8, Gross/Micro L4 Patient: Pietro Aragno [id number] (Continued) Specimen: [id number] Received: 10/21/24 (Continued) Microscopic Description Microscopic examination is performed. CPT Codes 30747 Specimen: [id number] Received: 10/21/24 Status: JERALD Hoyt Num: [id number] Spec Type: Surgical Subm Dr: Andrey Puentes, IIMD Tissues: A Breast Core CALCIFICATIONS (LEFT BREAST) Procedures: , Gross/Micro L4 Patient: Pietro Arango [id number] (Continued) Signed (signature on file) Nahum Dunbar MD 10/22/24 [facility] 1st lesion stereoon 17-78-8208XY biopsy LT 1st lesion [facility] [address] [place] [address] Mammography Report Signed with Dipesh Patient: Pietro Arango MR#: [id number] : 1955 Acct:[id number] Age/Sex: 69 / F Adm Date: 10/21/24 Loc: [place] Room: Type: [facility] Attending Dr: Hayden Camargo MD Ordering Provider: Hayden Camargo MD Date of Service: 10/21/24 Procedure(s): MM biopsy LT 1st lesion stereo; MM post biopsy LT w/CAD; MM speciman imaging post bx Accession Number(s): ([id number]) MM/MM biopsy LT 1st lesion stereo: R92.8 ([id number]) MM/MM post biopsy LT w/CAD: CLIP PLACEMENT ([id number]) MM/MM speciman imaging post bx: POST BIOPSY Copies to: Hayden Camargo MD ADDENDUM 1 Final pathology: Fibroadenoma with associated microcalcifications. No evidence of malignancy. These results are concordant. Follow-up with diagnostic mammogram of the left breast in 6 months is recommended to assess for stability. Impression dictated by: Andrey Puentes M.D. 10/22/2024 1:06 PM Dictation Location: [place] [address] Addendum Dictated By: Andrey Puentes II, MD Addendum Signed By: 10/22/241305 Addendum Cosigned By: DD/ TD/TT: 10/22/24 STEREOTACTIC LEFT BREAST BIOPSY WITH VACUUM ASSISTED NEEDLE AND MARKING CLIP PLACEMENT: CLINICAL INDICATION: Atypical microcalcifications in left breast TECHNIQUE AND FINDINGS: The procedure, associated risks, benefits were discussed with the patient and written, informed consent was obtained. With the patient's in craniocaudal compression, support services coordinator images of the breast were performed. The calcifications of concern within the upper outer quadrant of the left breast was visualized. Stereotactic imaging was performed and the coordinates of the lesion were calculated. Following sterile preparation and local anesthetization with lidocaine, an 9-gauge [employer] vacuum assisted core biopsy needle was advanced into the breast. Documentation of the needle position was performed both before and after firing of the needle. Multiple core biopsy specimens were obtained of the area of concern. Before the needle was removed, a marking clip was placed. The postbiopsy stereotactic image confirmed a biopsy clip amongst calcifications in the upper outer quadrant. There were no immediate postprocedural complications. MM/MM post biopsy LT w/CAD IMPRESSION: TECHNICALLY SUCCESSFUL LEFT BREAST STEREOTACTIC BIOPSY ENUMERATED ABOVE. LEFT BREAST SPECIMEN: Specimen radiograph of the tissue samples was obtained. There are multiple core tissue samples. Calcifications are seen within some of the tissue cores. IMPRESSION: STATUS POST SUCCESSFUL SAMPLING OF LEFT BREAST CALCIFICATIONS DIAGNOSTIC MAMMOGRAMS: Craniocaudal and mediolateral oblique views of the left breast were performed post stereotactic biopsy using low dose digital technique. Comparison is made to the previous mammograms dated 09/29/2024, 09/03/2003, and 08/14/2022. A marking clip is noted in the upper outer quadrant of the left breast in the area of the previously identified calcifications. A small amount of air is noted in the region of the biopsy. No significant hematoma is seen. The remainder of the left breast is unremarkable. IMPRESSION: STATUS POST SUCCESSFUL STEREOTACTIC REMOVAL OF CLUSTERED MICROCALCIFICATIONS IN THE UPPER OUTER QUADRANT OF THE LEFT BREAST. RESULT CODE: NL Impression dictated by: Andrey Puentes M.D. 10/21/2024 11:39 AM Dictation Location: [facility] Dictated By: Andrey Puentes II, MD 10/21/24 1136 Signed By: 10/21/24 1139[facility] Physician GroupMM special view LT w/CADon 50-89-7162TS special view LT w/CADSELECT [facility]ICAL [facility] [address] [place] [address] [place] [address] Mammography Report Signed Patient: Pietro Arango MR#: [id number] 420 : 1955 Acct:[id number] Age/Sex: 69 / F Adm Date: 10/08/24 Loc: [place] Room: Type: [facility] Attending Dr: Hayden Camargo MD Ordering Provider: Hayden Camargo MD Date of Service: 10/08/24 Procedure(s): MM special view LT w/CAD Accession Number(s): ([id number]) MM/MM special view LT w/CAD: R92.8 Copies to: Hayden Camargo MD CLINICAL DATA: Callback suspicious cluster microcalcifications left breast Left DIAGNOSTIC MAMMOGRAM - WITH TOMOSYNTHESIS AND CAD COMPARISON:Outside mammogram 09/29/2024 as well as others dating back to 2022 Tomosynthesis imaging was obtained using low-dose digital technique. This examination was reviewed with the aid of CAD. FINDINGS: The left breast is composed of heterogeneously dense fibroglandular tissue. A cluster of coarse/heterogeneous calcifications are seen involving the upper outer quadrant of the left breast. These have progressed in size and number when compared to the prior mammogram studies. MM/MM special view LT w/CAD IMPRESSION: A CLUSTER OF COARSE/HETEROGENEOUS CALCIFICATIONS ARE SEEN INVOLVING THE UPPER OUTER QUADRANT OF THE LEFT BREAST WHICH HAVE EVOLVED SINCE PRIOR MAMMOGRAMS. MALIGNANCY CANNOT BE EXCLUDED. STEREOTACTIC BIOPSY IS RECOMMENDED. FINDINGS WERE DISCUSSED WITH THE PATIENT SHORTLY AFTER IMAGING. RESULT CODE: 4b Suspicious Abnormality - Biopsy Intermediate Suspicion DENSITY CODE: 3 (approximately 51-75% glandular) The breasts are heterogeneously dense, which may obscure small masses. FOLLOW UP: BIO The false-negative rate of mammography is approximately 10-percent. Management of a palpable abnormality must be based on clinical grounds. Patient was entered into a reminder system with a target due date for the next mammogram. Impression dictated by: Faisal Sanders Jr., D.O. 10/08/2024 10:12 AM Dictation Location: [facility] Dictated By: Faisal Sanders Jr, DO 10/08/24 1009 Signed By: 10/08/[address] [place] [address] Physician GroupMammography reportOrdered By: Faisal Sanders on 57-32-5080Aavcwqyjsu imaging studySELECT [facility]ICAL [facility] [address] [place] [address] Mammography Report Signed Patient: Pietro Arango MR#: [id number] : 1955 Acct:[id number] Age/Sex: 69 / F Adm Date: 5 Loc: [place] Room: Type: [facility] Attending Dr: Hayden Camargo MD Ordering Provider: Hayden Camargo MD Date of Service: 10/08/24 Procedure(s): MM special view LT w/CAD Accession Number(s): ([id number]) MM/MM special view LT w/CAD: R92.8 Copies to: Hayden Camargo MD~ CLINICAL DATA: Callback suspicious cluster microcalcifications left breast Left DIAGNOSTIC MAMMOGRAM - WITH TOMOSYNTHESIS AND CAD COMPARISON:Outside mammogram 09/29/2024 as well as others dating back to 2022 Tomosynthesis imaging was obtained using low-dose digital technique. This examination was reviewed with the aid of CAD. FINDINGS: The left breast is composed of heterogeneously dense fibroglandular tissue. A cluster of coarse/heterogeneous calcifications are seen involving the upper outer quadrant of the left breast. These haveprogressed in size and number whencompared to the prior mammogram studies. MM/MM special view LT w/CAD IMPRESSION: A CLUSTER OF COARSE/HETEROGENEOUS CALCIFICATIONS ARE SEEN INVOLVING THE UPPER OUTER QUADRANT OF THELEFT BREAST WHICH HAVE EVOLVED SINCE PRIOR MAMMOGRAMS. MALIGNANCY CANNOT BE EXCLUDED. STEREOTACTIC BIOPSY IS RECOMMENDED. FINDINGS WEREDISCUSSED WITH THE PATIENT SHORTLY AFTER IMAGING. RESULT CODE: 4b Suspicious Abnormality - Biopsy Intermediate Suspicion DENSITY CODE: 3 (approximately 51-75% glandular) The breasts are heterogeneouslydense, which may obscure small masses. FOLLOW UP: BIO The false-negative rate of mammography is approximately 10-percent. Management of a palpable abnormality must be based on clinical grounds. Patient was entered into a reminder system with a target due date for the next mammogram. Impression dictated by: Faisal Sanders Jr., D.O. 10/08/2024 10:12 AM Dictation Location: [facility] Dictated By: Faisal Sanders Jr, DO 10/08/24 1009 Signed By: 10/08/24 1012 [facility] WITH AUTO DIFFERENTIALon 09-01-2024 BASOPHILS ABSOLUTE COUNT (10*3/UL) BY AUTOMATED COUNT0.1 10*3/uLNormal0.0-0.2 [facility] HospitalComment on above:Performed By: #### CBCA #### [facility] ([facility]) [address] [place] [address] VIRBASOPHILS RELATIVE PERCENT BY AUTOMATED COUNT1.0 %Normal [facility] HospitalComment on above:Performed By: #### CBCA #### [facility] ([facility]) [address] [place] [address] VIRCELLAVISION DIFFERENTIAL TYPEAUTOMATED DIFFERENTIALNormal [facility] HospitalComment on above:Performed By: #### CBCA #### [facility] ([facility]) [address] [place] [address] VIREosinophils (Bld) [#/Vol]0.1 10*3/uLNormal0.0-0.4[facility] Hospitalca [facility] HospitalComment on above:Performed By: #### CBCA #### [facility] ([facility]) [address] [place] [address] VIREOSINOPHILS RELATIVE PERCENT BY AUTOMATED COUNT1.1 %Normal [facility] HospitalComment on above:Performed By: #### CBCA #### [facility] ([facility]) [address] [place] [address] [place] [address] VIRErythrocyte distribution width (RBC) [Ratio]14.2 %Normal 11.5-15[facility] HospitalComment on above:Performed By: #### CBCA #### [facility] ([facility]) [address] [place] [address] VIRHematocrit (Bld) [Volume fraction]36.0 %Phkruk50-22EmzCqkmyzValley Baptist Medical Center – HarlingenComment on above:Performed By: #### CBCA #### [facility] ([facility]) [address] [place] [address] VIRHemoglobin (Bld) [Mass/Vol]11.7 g/cSLxcgnx32.7-15.5PUniversity Hospitals Beachwood Medical CenterComment on above:Performed By: #### CBCA #### [facility] ([facility]) [address] [place] [address] VIRLYMPHOCYTES ABSOLUTE COUNT (10*3/UL) BY AUTOMATED COUNT2.0 10*3/uLNormal1.0-3.5PUniversity Hospitals Beachwood Medical CenterComment on above:Performed By: #### CBCA #### [facility] ([facility]) [address] [place] [address] VIRLYMPHOCYTES RELATIVE PERCENT BY AUTOMATED COUNT31.6 %Normal [facility] HospitalComment on above:Performed By: #### CBCA #### [facility] ([facility]) [address] [place] [address] VIRMCH (RBC) [Entitic mass]29.3 wvGhzhgp16-35UkuLgldnzValley [facility] HarlingenComment on above:Performed By: #### CBCA #### [facility] ([facility]) [address] [place] [address] VIRMCHC (RBC) [Mass/Vol]32.6 g/pKQsiequ38-43DnaYfromyValley Baptist Medical Center – HarlingenComment on above:Performed By: #### CBCA #### [facility] ([facility]) [address] [place] [address] VIRMCV (RBC) [Entitic vol]90 cZNmltar30-005XdwLndxdoProvidence HospitalComment on above:Performed By: #### CBCA #### [facility] ([facility]) [address] [place] [address] VIRMONOCYTES ABSOLUTE COUNT (10*3/UL) BY AUTOMATED COUNT0.5 10*3/uLNormal0.0-0.9Providence HospitalComment on above:Performed By: #### CBCA #### [facility] ([facility]) [address] [place] [address] VIRMONOCYTES RELATIVE PERCENT BY AUTOMATED COUNT7.5 %Normal Providence HospitalComment on above:Performed By: #### CBCA #### [facility] ([facility]) [address] [place] [address] VIRNEUTROPHILS ABSOLUTE COUNT BY AUTOMATED COUNT3.7 10*3/uL Normal1.5-6.6Providence HospitalComsurgeons choice medical center on above:Performed By: #### CBCA #### [facility] ([facility]) [address] [place] [address] VIRNEUTROPHILS RELATIVE PERCENT BY AUTOMATED COUNT58.8 %Normal Providence HospitalComment on above:Performed By: #### CBCA #### [facility] ([facility]) [address] [place] [address] VIRPlatelet mean volume (Bld) [Entitic vol]9.2 fLNormal7-12 [facility] HospitalComment on above:Performed By: #### CBCA #### [facility] ([facility]) [address] [place] [address] VIRPlatelets (Bld) [#/Vol]249 10*3/vSZgtafl360-547ZwzUawlsb Fremont HospitalComment on above:Performed By: #### CBCA #### [facility] ([facility]) [address] [place] [address] VIRRBC COUNT4.00 X10E12/LNormal3.8-5.2PUniversity Hospitals Beachwood Medical CenterComment on above:Performed By: #### CBCA #### [facility] ([facility]) [address] [place] [address] VIRWBC (Bld) [#/Vol]6.2 10*3/uLNormal4-11ProValley [facility] Center – HarlingenComment on above:Performed By: #### CBCA #### [facility] ([facility]) [address] [place] [address] VIRCOMPREHENSIVE METABOLIC PANELon 94-49-2243Nqnnjry [Mass/Vol] 4.5 g/dLNormal3.2-5.3PUniversity Hospitals Beachwood Medical CenterComment on above:Performed By: #### CMP #### [facility] ([facility]) [address] [place] [address] VIRALP [Catalytic activity/Vol]62 U/XKozqhs05-480BcmQhzirzValley Baptist Medical Center – HarlingenComment on above:Performed By: #### CMP #### [facility] ([facility]) [address] [place] [address] VIRALT [Catalytic activity/Vol]14 U/LNormal<=31PUniversity Hospitals Beachwood Medical CenterComment on above:Performed By: #### CMP #### [facility] ([facility]) [address] [place] [address] VIRAnion gap [Moles/Vol]8 mmol/LNormal5-15ProValley [facility] Center – HarlingenComment on above:Performed By: #### CMP #### [facility] ([facility]) [address] [place] [address] VIRAST [Catalytic activity/Vol]13 U/LNormal<=41ProValley [facility] Center – HarlingenComment on above:Performed By: #### CMP #### [facility] ([facility]) [address] [place] [address] VIRBilirubin [Mass/Vol]0.4 mg/dLNormal0.3-1.2PUniversity Hospitals Beachwood Medical CenterComment on above:Performed By: #### CMP #### [facility] ([facility]) [address] [place] [address] VIRCalcium [Mass/Vol]9.9 mg/dLNormal8.5-10.5PUniversity Hospitals Beachwood Medical CenterComment on above:Performed By: #### CMP #### [facility] ([facility]) [address] [place] [address] VIRChloride [Moles/Vol]103 mmol/GHnartp00-359JyyCwbwgyValley Baptist Medical Center – HarlingenComment on above:Performed By: #### CMP #### [facility] ([facility]) [address] [place] [address] VIRCO2 [Moles/Vol]27 mmol/GNkgvkm69-51MviZzyxptUniversity Hospitals Beachwood Medical CenterComment on above:Performed By: #### CMP #### [facility] ([facility]) [address] [place] [address] VIRCreatinine [Mass/Vol]0.81 mg/dLNormal0.40-1.00ProValley [facility] Medical Center – HarlingenComment on above:Result Comment: METHOD TRACEABLE TO IDMS STANDARDPerformed By: #### CMP #### [facility] ([facility]) [address] [place] [address] VIRGFR/1.73 sq M.predicted among non-blacks MDRD (S/P/Bld) [Vol rate/Area]78 mL/min/{1.73_m2}Normal>=60ProValley [facility] Medical Center – HarlingenComment on above:Result Comment: Reported eGFR is based on the CKD-EPI 2020 equation that does not use a race coefficient.Performed By: #### CMP #### [facility] ([facility]) [address] [place] [address] VIRGlucose [Mass/Vol]111 mg/iDTeun38-20YmiNqarxbValley Baptist Medical Center – HarlingenComment on above:Performed By: #### CMP #### [facility] ([facility]) [address] [place] [address] VIRPotassium [Moles/Vol]4.6 mmol/LNormal3.5-5.0ProValley [facility] – HarlingenComment on above:Performed By: #### CMP #### [facility] ([facility]) [address] [place] [address] VIRProtein [Mass/Vol]7.4 g/dLNormal6.0-8.0ProValley [facility] – HarlingenComment on above:Performed By: #### CMP #### [facility] ([facility]) [address] [place] [address] VIRPerformed By: #### SPE #### [facility] ([facility]) [address] [place] [address] VIRSodium [Moles/Vol]138 mmol/MIataqr354-272KgtUujram Fremont HospitalComment on above:Performed By: #### CMP #### [facility] ([facility]) [address] [place] [address] VIRUrea nitrogen [Mass/Vol]19 mg/dLNormal5-27ProValley [facility] – HarlingenComment on above:Performed By: #### CMP #### [facility] ([facility]) [address] [place] [address] VIRFREE LIGHT CHAINSon 95-32-6620QRNE JULIO/LAMBD RATIO2.02High 0.26-1.65ProValley [facility] – HarlingenComment on above:Performed By: #### FLCH #### [facility] ([facility]) [address] [place] [address] VIRFREE KAPPA LT CHAINS3.32 mg/dLHigh0.33-1.94ProValley [facility] – HarlingenComment on above:Performed By: #### FLCH #### [facility] ([facility]) [address] [place] [address] VIRFREE LAMBDA LT CHAINS1.64 mg/dLNormal0.57-2.63ProValley [facility] – HarlingenComment on above:Performed By: #### FLCH #### [facility] ([facility]) [address] [place] [address] VIRPROTEIN ELECTROPHORESIS, SERUMon 84-88-0593Gkhqavp [Mass/Vol]4.1 g/dLNormal3.4-5.3PUniversity Hospitals Beachwood Medical CenterComment on above: Performed By: #### SPE #### [facility] ([facility]) [address] [place] [address] VIRALPHA 1 GLOBULIN0.3 g/dLNormal0.1-0.4ProValley [facility] Center – HarlingenComment on above:Performed By: #### SPE #### [facility] ([facility]) [address] [place] [address] VIRALPHA 2 GLOBULIN0.7 g/dLNormal0.4-1.1PUniversity Hospitals Beachwood Medical CenterComment on above:Performed By: #### SPE #### [facility] ([facility]) [address] [place] [address] VIRBETA GLOBULIN0.8 g/dLNormal0.5-1.2PUniversity Hospitals Beachwood Medical Center Comment on above:Performed By: #### SPE #### [facility] ([facility]) [address] [place] [address] VIRGAMMA GLOBULIN1.6 g/dLNormal0.5-1.6ProValley [facility] Medical Center – HarlingenComment on above:Performed By: #### SPE #### [facility] ([facility]) [address] [place] [address] VIRPROTEIN ELECTROPHORESIS INTERPSee Pathology ReportNormal ProMSan Francisco Chinese HospitalComment on above:Performed By: #### SPE #### [facility] ([facility]) [address] [place] [address] VIRSERUM IMMUNOFIXATIONon 87-89-3375QnC [Mass/Vol]101 mg/dL Nqdhmi54-140XyaMvrysaProvidence HospitalComment on above:Performed By: #### CBCA, CMP, TSHR #### [facility] ([id number]) [address] [place] [address] #### 3051-0 #### [facility] ([id number]) [address] [place], [place] [address]GcY [Mass/Vol]1802 mg/sNSroh392-8607DhgImyoub [facility] Comment on above:Performed By: #### CBCA, CMP, TSHR #### [facility] ([id number]) [address] [place] [address] #### 3051-0 #### [facility] ([id number]) [address] [place], [place] [address]NkT [Mass/Vol]60 mg/qUAhujny75-726ObzWidublProvidence Hospital Comment on above:Performed By: #### CBCA, CMP, TSHR #### [facility] ([id number]) [address] [place] [address] #### 3051-0 #### [facility] ([id number]) [address] [place], [place] [address]ODXVQVFNQ INTERPSee Pathology ReportNormalProvidence HospitalComment on above:Performed By: #### CBCA, CMP, TSHR #### [facility] ([id number]) [address] [place] [address] #### 3051-0 #### [facility] ([id number]) [address] [place], [place] [address]HCTC SCAN CENTRAL SKELETALon 74-98-2091VFQW SCAN CENTRAL SKELETALDEXA SCAN CENTRAL SKELETAL CLINICAL INFORMATION: Senile osteoporosis. Postmenopausal TECHNIQUE: Dual [...] if clinically indicated since the etiology of lowBMD cannot be determined by BMD measurement alone. The current [employer]opor[employer] guide recommends treating patients with FRAX ten year risk scores of greater than or equal to 3% for hip fracture or greater than or equal to 20% for major osteoporotic fracture, to reduce their fracture risk. Finalized by Santos Graham MD on 07/29/2024 10:[address] [facility] HospitalXR OSSEOUS SURVEY COMPLETEon [id number] OSSEOUS SURVEY COMPLETEXR OSSEOUS SURVEY COMPLETE History: Hyperproteinemia. Evaluate for [...] by Lj Hernandez MD on 06/15/2024 2:52 PMNormalProValley Baptist Medical Center – HarlingenCB AND AUTO DIFFon 34-25-1731HUGYTFDH BASOPHIL0.0 X10E9/LNormal0.0-0.2 [facility] HospitalComment on above:Performed By: #### CBCA, CMP, TSHR #### [facility] ([id number]) [address] [place] [address] #### 3051-0 #### [facility] ([id number]) [address], [address] [place], [place] [address]GUAACOBP NEUTROPHIL3.3 X10E9/LNormal1.5-6.6Providence HospitalComment on above:Performed By: #### CBCA, CMP, TSHR #### [facility] ([id number]) [address] [place] [address] #### 3051-0 #### [facility] ([id number]) [address] [place], [place] [address]Fcmbvvklx/100 WBC (Bld)0.7 %NormalProvidence Hospital Comment on above:Performed By: #### CBCA, CMP, TSHR #### [facility] ([id number]) [address] [place] [address] #### 3051-0 #### [facility] ([id number]) [address] [place], [place] [address]Wvvzjqievro (Bld) [#/Vol]0.1 10*3/uLNormal0.0-0.4ProValley [facility] Center – HarlingenComment on above:Performed By: #### CBCA, CMP, TSHR #### [facility] ([id number]) [address] [place] [address] #### 3051-0 #### [facility] ([id number]) [address] [place], [place] [address]Pdwyowvbhfw/100 WBC (Bld)1.6 %NormalProValley [facility] – Harlingen Comment on above:Performed By: #### CBCA, CMP, TSHR #### [facility] ([id number]) [address] [place] [address] #### 3051-0 #### [facility] ([id number]) [address] [place], [place] [address]Guplehjijea distribution width (RBC) [Ratio]13.3 %Normal 11.5-15.0ProValley [facility] Medical Center – HarlingenComment on above:Performed By: #### CBCA, CMP, TSHR #### [facility] ([id number]) [address] [place] [address] #### 3051-0 #### [facility] ([id number]) [address] [place], [place] [address]Kuinrksinw (Bld) [Volume fraction]37.7 %Xniaux56-21NkfMojkonValley Baptist Medical Center – HarlingenComment on above:Performed By: #### CBCA, CMP, TSHR #### [facility] ([id number]) [address] [place] [address] #### 3051-0 #### [facility] ([id number]) [address] [place], [place] [address]Avmapgzhvb (Bld) [Mass/Vol]12.7 g/jRFcbghz94.7-15.5PUniversity Hospitals Beachwood Medical CenterComment on above:Performed By: #### CBCA, CMP, TSHR #### [facility] ([id number]) [address] [place] [address] #### 3051-0 #### [facility] ([id number]) [address] [place], [place] [address]Foqwzaalwum (Bld) [#/Vol]1.4 10*3/uLNormal1.0-3.5ProMedica [facility] Kings HospitalComment on above:Performed By: #### CBCA, CMP, TSHR #### [facility] ([id number]) [address] [place] [address] #### 3051-0 #### [facility] ([id number]) [address] [place], [place] [address]Dwcehpdrsbw/100 WBC (Bld)26.3 %NormalProvidence Hospital Comment on above:Performed By: #### CBCA, CMP, TSHR #### [facility] ([id number]) [address] [place] [address] #### 3051-0 #### [facility] ([id number]) [address] [place], [place] [address]CYR (RBC) [Entitic mass]30.1 rjOzufbt23-13PvwEqtnavProvidence HospitalComment on above:Performed By: #### CBCA, CMP, TSHR #### [facility] ([id number]) [address] [place] [address] #### 3051-0 #### [facility] ([id number]) [address] [place], [place] [address]DBQX (RBC) [Mass/Vol]33.6 g/tNPdukwf68-72DfsHwapomValley Baptist Medical Center – HarlingenComment on above:Performed By: #### CBCA, CMP, TSHR #### [facility] ([id number]) [address] [place] [address] #### 3051-0 #### [facility] ([id number]) [address] [place], [place] [address]NGW (RBC) [Entitic vol]90 ySYhhenp92-729YypGbcjgl Fremont HospitalComment on above:Performed By: #### CBCA, CMP, TSHR #### [facility] ([id number]) [address] [place] [address] #### 3051-0 #### [facility] ([id number]) [address] [place], [place] [address]Kxxgcuwmg (Bld) [#/Vol]0.4 10*3/uLNormal0-0.9Providence HospitalComment on above:Performed By: #### CBCA, CMP, TSHR #### [facility] ([id number]) [address] [place] [address] #### 3051-0 #### [facility] ([id number]) [address] [place], [place] [address]Fnhliicqk/100 WBC (Bld)7.4 %[facility] Comment on above:Performed By: #### CBCA, CMP, TSHR #### [facility] ([id number]) [address] [place] [address] #### 3051-0 #### [facility] ([id number]) [address] [place], [place] [address]Qjtwuarktlz/100 WBC (Bld)64.0 %[facility] Comment on above:Performed By: #### CBCA, CMP, TSHR #### [facility] ([id number]) [address] [place] [address] #### 3051-0 #### [facility] ([id number]) [address] [place], [place] [address]Kkqolozo mean volume (Bld) [Entitic vol]9.0 fLNormal7-12 [facility] HospitalComment on above:Performed By: #### CBCA, CMP, TSHR #### [facility] ([id number]) [address] [place] [address] #### 3051-0 #### [facility] ([id number]) [address] [place], [place] [address]Ciczdupbw (Bld) [#/Vol]271 10*3/uDVkjzzc020-018LjqRygdrn [facility]ont HospitalComment on above:Performed By: #### CBCA, CMP, TSHR #### [facility] ([id number]) [address] [place] [address] #### 3051-0 #### [facility] ([id number]) [address] [place], [place] [address]ZCC COUNT4.20 X10E12/LNormal3.80-5.20[facility] Comment on above:Performed By: #### CBCA, CMP, TSHR #### [facility] ([id number]) [address] [place] [address] #### 3051-0 #### [facility] ([id number]) [address] [place], [place] [address]DJN (Bld) [#/Vol]5.2 10*3/uLNormal4.0-11.0ProValley [facility] Medical Center – HarlingenComment on above:Performed By: #### CBCA, CMP, TSHR #### [facility] ([id number]) [address] [place] [address] #### 3051-0 #### [facility] ([id number]) [address] [place] [address]WJZHEKLPSCJRS METABOLIC PANELon 63-65-0373Dluemvz [Mass/Vol]4.5 g/dLNormal3.2-5.3PUniversity Hospitals Beachwood Medical CenterComment on above:Performed By: #### CBCA, CMP, TSHR #### [facility] ([id number]) [address] [place] [address] #### 3051-0 #### [facility] ([id number]) [address] [place], [place] [address]HEA [Catalytic activity/Vol]68 U/LHfchfx30-690HleOsveglValley Baptist Medical Center – HarlingenComment on above:Performed By: #### CBCA, CMP, TSHR #### [facility] ([id number]) [address] [place] [address] #### 3051-0 #### [facility] ([id number]) [address] [place] [address]DME [Catalytic activity/Vol]24 U/LNormal0-31PUniversity Hospitals Beachwood Medical CenterComment on above:Performed By: #### CBCA, CMP, TSHR #### [facility] ([id number]) [address] [place] [address] #### 3051-0 #### [facility] ([id number]) [address] [place], [place] [address]Rffgc gap [Moles/Vol]8 mmol/LNormal5-15ProValley [facility] Medical Center – HarlingenComment on above:Performed By: #### CBCA, CMP, TSHR #### [facility] ([id number]) [address] [place] [address] #### 3051-0 #### [facility] ([id number]) [address] [place] [address]IHK [Catalytic activity/Vol]21 U/LNormal0-41ProValley [facility] Center – HarlingenComment on above:Performed By: #### CBCA, CMP, TSHR #### [facility] ([id number]) [address] [place] [address] #### 3051-0 #### [facility] ([id number]) [address] [place], [place] [address]Rjbdzjlot [Mass/Vol]0.5 mg/dLNormal0.3-1.2PUniversity Hospitals Beachwood Medical CenterComment on above:Performed By: #### CBCA, CMP, TSHR #### [facility] ([id number]) [address] [place] [address] #### 3051-0 #### [facility] ([id number]) [address] [place] [address]Lksakph [Mass/Vol]9.3 mg/dLNormal8.5-10.5PUniversity Hospitals Beachwood Medical CenterComment on above:Performed By: #### CBCA, CMP, TSHR #### [facility] ([id number]) [address] [place] [address] #### 3051-0 #### [facility] ([id number]) [address] [place], [place] [address]Shcszmze [Moles/Vol]105 mmol/DCjrshw63-897ZipIxvtkcValley Baptist Medical Center – HarlingenComment on above:Performed By: #### CBCA, CMP, TSHR #### [facility] ([id number]) [address] [place] [address] #### 3051-0 #### [facility] ([id number]) [address] [place], [place] [address]DE5 [Moles/Vol]23 mmol/PUntdcb27-61UiaAmdwmrUniversity Hospitals Beachwood Medical Center Comment on above:Performed By: #### ANGELICA ZULUAGA, TSHR #### [facility] ([id number]) [address] [place] [address] #### 3051-0 #### [facility] ([id number]) [address] [place], [place] [address]Yelykhgxfa [Mass/Vol]1.23 mg/dLHigh0.40-1.00Providence HospitalComment on above:Result Comment: METHOD TRACEABLE TO IDMS STANDARD Performed By: #### ANGELICA ZULUAGA, TSHR #### [facility] ([id number]) [address] [place] [address] #### 3051-0 #### [facility] ([id number]) [address] [place], [place] [address]YAV/1.73 sq M.predicted among non-blacks MDRD (S/P/Bld) [Vol rate/Area]47 mL/min/{1.73_m2}Low>59Providence HospitalComment on above: Result Comment: Reported eGFR is based on the CKD-EPI 2020 equation that does not use a race coefficient.Performed By: #### MARGARETH, CMP, TSHR #### [facility] ([id number]) [address] [place] [address] #### 3051-0 #### [facility] ([id number]) [address], [address] [place], [place] [address]Dulmhkf [Mass/Vol]127 mg/oHYqwm60-86LfkPsfbdvProvidence Hospital Comment on above:Performed By: #### MARGARETH, CMP, TSHR #### [facility] ([id number]) [address] [place] [address] #### 3051-0 #### [facility] ([id number]) [address] [place], [place] [address]Efbyivcos [Moles/Vol]4.3 mmol/LNormal3.5-5.0ProValley [facility] Medical Center – HarlingenComment on above:Performed By: #### CBCA, CMP, TSHR #### [facility] ([id number]) [address] [place] [address] #### 3051-0 #### [facility] ([id number]) [address] [place], [place] [address]Lkwheyr [Mass/Vol]8.5 g/dLHigh6.0-8.0Pro[facility] Comment on above:Performed By: #### CBCA, CMP, TSHR #### [facility] ([id number]) [address] [place] [address] #### 3051-0 #### [facility] ([id number]) [address] [place], [place] [address]Vnxjtu [Moles/Vol]136 mmol/SDgvkma657-456KnfNdtqsy [facility]remont HospitalComment on above:Performed By: #### CBCA, CMP, TSHR #### [facility] ([id number]) [address] [place] [address] #### 3051-0 #### [facility] ([id number]) [address], [address] [place], [place] [address]Ldyz nitrogen [Mass/Vol]25 mg/dLNormal5-27ProVal[facility] – HarlingenComment on above:Performed By: #### CBCA, CMP, TSHR #### [facility] ([id number]) [address] [place] [address] #### 3051-0 #### [facility] ([id number]) [address] [facility], [address] [place], [place] [address]IONC T3on 25-72-2664Nlzn T3 [Mass/Vol]3.18 pg/mLNormal2.50-3.90 [facility] HospitalComment on above:Performed By: #### CBCA, CMP, TSHR #### [facility] ([id number]) [address] [place] [address] #### 3051-0 #### [facility] ([id number]) [address] [facility], [address] [place], [place] [address]YRI WITH REFLEXon 71-51-2602RAK5.93 uIU/mLNormal0.49-4.67 [facility] HospitalComment on above:Performed By: #### CBCA, CMP, TSHR #### [facility] ([id number]) [address] [place] [address] #### 3051-0 #### [facility] ([id number]) [address] [place] [address], [address] [place], [place] [address]SQRMOEU ANDREY ADMITon 97-16-3304DS [Catalytic activity/Vol]49 U/L Lclijp80-654Koy [facility] Willard HospitalComment on above:Performed By: #### SCOTTY SMITHDM #### [facility] [address] [place] [address] Dr. Amy Green.MB [Mass/Vol]ng/mLNormal<=3.60The [facility] Willard HospitalComment on above:Performed By: #### LUIS CMADM #### [facility] [address] [place] [address] Dr. Amy RiosTROP5.6 pg/mLNormal4.0-51.3The [facility] Willard HospitalComment on above:Result Comment: CUT-OFF POINTS HAVE BEEN ESTABLISHED BASED ON THE FOURTH UNIVERSAL DEFINITIONS OF MYOCARDIAL INFARCTION. THE UPPER REFERENCE LIMIT (URL) OF TROPONIN, DEFINED THE 99TH PERCENTILE OF cTnI DISTRIBUTION IN A REFERENCE POPULATION, HAS BEEN CONFIRMED THE DECISION THRESHOLD FOR AL DIAGNOSIS.Performed By: #### CORWIN SMITH #### [facility] Laboratory [address] [place] [address] Dr. Amy ShethO27 ng/mLNormal9-82[facility] Hospitalment on above: Performed By: #### SCOTTY SMITHDM #### [facility] Laboratory [address] [place] [address] Dr. Amy Cunningham W MANUAL DIFFon [id number] LYMPH #NormalCherrington HospitalComment on above:Performed By: #### CBCMAN #### [facility] Laboratory [address] [place] [address] Dr. Amy LrYPICAL LYMPH %NormalCherrington HospitalComment on above: Performed By: #### CBCSHEILA #### [facility] Laboratory [address] [place] [address] Dr. Amy Day #0.0 103/ulNormal0.0-0.3The Kendalia HospitalComment on above:Performed By: #### LUKASZ #### [facility] Laboratory [address] [place] [address] Dr. Amy Day %0 %Normal0-5The [facility] HospitalComment on above:Performed By: #### CBCSHEILA #### [facility] Laboratory [address] [place] [address] Dr. Amy Madrid #0.00 103/ulNormal0.00-0.10The [facility] HospitalComment on above:Performed By: #### CBCSHEILA #### [facility] Laboratory [address] [place] [address] Dr. Amy Madrid %0.0 %Critically low0.2-2.0The [facility] HospitalComment on above:Performed By: #### CBCMAN #### [facility] Laboratory [address] [place] [address] Dr. Amy Rivas #NormalCherrington HospitalComment on above:Performed By: #### CBCSHEILA #### [facility] Laboratory [address] [place] [address] Dr. Amy PastranaBLAST %NormalThe [facility] HospitalComment on above:Performed By: #### CBCMAN #### [facility] Laboratory [address] [address] [address] Amy PastranaCORRECTED WBCNormal4.0-11.0The [facility] HospitalComment on above: Performed By: #### CBCSHEILA #### [facility] Laboratory [address] [address] [address] Amy Man #0.00 103/ulNormal0.00-0.70The [facility] HospitalComment on above:Performed By: #### CBCSHEILA #### [facility] Laboratory [address] [address] [address] Amy Man%0.0 %Critically low0.9-7.0The [facility] HospitalComment on above:Performed By: #### CBCSHEILA #### [facility] Laboratory [address] [address] [address] Amy PastranaHCT34.9 %Critically low36.0-48.0The [facility] HospitalComment on above:Performed By: #### CBCSHEILA #### [facility] Laboratory [address] [address] [address] Amy PastranaHGB11.6 g/dlCritically low12.0-16.0The [facility] HospitalComment on above:Performed By: #### CBCMAN #### [facility] Laboratory [address] [address] [address] Amy Guerrier #0.74 103/ulCritically low1.20-3.80The [facility] Comment on above:Performed By: #### CBCMAN #### [facility] Laboratory [address] [address] [address] Amy Guerrier%11.0 %Critically low20.5-60.0The [facility] HospitalComment on above:Performed By: #### CBCMAN #### [facility] Laboratory [address] [address] [address] Amy PastranaMCH29.2 amPhmhwr32.7-34.0The [facility] HospitalComment on above: Performed By: #### LUKASZ #### [facility] Laboratory [address] [address] [address] Amy VelezHC33.2 g/unIvqmbf46.9-35.2The [facility] HospitalComment on above:Performed By: #### LUKASZ #### [facility] Laboratory [address] [place] [address] Dr. Amy VelezV87.9 yLJncjfb44.0-99.0The [facility] HospitalComment on above: Performed By: #### LUKASZ #### [facility] Laboratory [address] [place] [address] Dr. Amy Delgado #NormalThe [facility] HospitalComment on above: Performed By: #### LUKASZ #### [facility] Laboratory [address] [place] [address] Dr. Amy LoyaOCYTE %NormalThe [facility] HospitalComment on above: Performed By: #### LUKASZ #### [facility] Laboratory [address] [place] [address] Dr. Amy Arguello#0.27 103/ulCritically low0.30-0.80The [facility] on above:Performed By: #### LUKASZ #### [facility] Laboratory [address] [place] [address] Dr. Amy Arguello%4.0 %Normal1.7-12.0The [facility] HospitalComment on above: Performed By: #### LUKASZ #### [facility] Laboratory [address] [place] [address] Dr. Amy ArcherV11.2 fLNormal9.5-13.5The [facility] HospitalComment on above: Performed By: #### LUKASZ #### [facility] Laboratory [address] [place] [address] Dr. Amy Stein #NormalThe [facility] Hospitalment on above:Performed By: #### LUKASZ #### [facility] Laboratory [address] [place] [address] Dr. Amy ManjarrezOCYTE %NormalThe [facility] HospitalComment on above:Performed By: #### LUKASZ #### [facility] Laboratory [address] [address] [address] Amy RoachBCNormalThe [facility] HospitalComment on above:Performed By: #### LUKASZ #### [facility] Laboratory [address] [address] [address] Amy PastranaPLT259 103/qlUyfvem797-672Fzs [facility] HospitalComment on above: Performed By: #### LUKASZ #### [facility] Laboratory [address] [place] [address] Dr. Amy BarrettC3.97 106/ulCritically low4.20-5.40The [facility] HospitalComment on above:Performed By: #### LUKASZ #### [facility] Laboratory [address] [place] [address] Dr. Amy JasmineW12.6 %Ohxalp20.0-15.0The [facility] HospitalComsurgeons choice medical center on above: Performed By: #### LUKASZ #### [facility] Laboratory [address] [place] [address] Dr. Amy Rendon #5.70 103/ulNormal1.40-6.50The [facility] HospitalComsurgeons choice medical center on above:Performed By: #### LUKASZ #### [facility] Laboratory [address] [place] [address] Dr. Amy Rendon %85.0 %Critically high43.0-75.0The [facility] on above:Performed By: #### LUKASZ #### [facility] Laboratory [address] [place] [address] Dr. Amy TranBC6.7 103/ulNormal4.0-11.0The [facility] on above: Performed By: #### LUKASZ #### [facility] Laboratory [address] [place] [address] Dr. Amy PastranaCT FACIAL BONES WO CONon [id number] FACIAL BONES WO CON EXAMINATION: CT FACIAL [...] Electronically authenticated by: BENJAMIN MAGUIRE Date: 2022-03-20 06:51[facility] CenterCT HEAD WO CONon [id number] HEAD WO CONEXAMINATION: CT HEAD WO CON, 03/20/2022 6:05 AM [...] Electronically authenticated by: BENJAMIN MAGUIRE Date: 2022-03-20 06:48[facility] CenterCovid-19 PCR (CVDTBH)on 09-12-6207VHGK-CoV-2 (COVID-19) RNA SHANTEL+probe Ql (Unsp spec)Not detectedNormalNOT DETECTEDThe [facility] Comment on above:Result Comment: When diagnostic testing is negative, the [...] for this test is supported by the Dental Ceramist of Health and Human Service's declaration that circumstances exist to justify the emergency use of in vitro diagnostics for the detection and/or diagnosis of the virus that causes COVID-19. This EUA will remain in effect for the duration of the COVID-19 declaration justifying emergency of IVDs, unless it is terminated or revoked by the FDA (after which the test may no longer be used).Performed By: #### CVDTBH #### [facility] Laboratory [address] [place] [address] Dr. Amy EscobarDIMERon 35-57-1625L-DIMER0.52 mg/L FEUNormal<=0.59The [facility] HospitalComment on above:Performed By: #### DDIM #### [facility] Laboratory [address] [place] [address] Dr. Amy Haywood COMMENTSSEE [facility] Specialty Hospital - AkronComment on above:Result Comment: Increases in D-Dimer concentration observed with thromboembolic events [...] thrombolytic or anticoagulant therapy, stress, and generalized hospitalization.Performed By: #### DDIM #### [facility] Laboratory [address] [place] [address] Dr. Amy Beckham A AND B AGon [id number] A AGNegativeNormal NEGATIVE SEE COMMENTThe [facility] HospitalComment on above:Performed By: #### INFLUAB ####[facility] [address] [address]DrLoy PastranaINFLGENARONZA B AGNegativeNormalNEGATIVE SEE COMMENTThe [facility] HospitalComment on above:Performed By: #### INFLUAB ####[facility] [address] [address]. Yilan ChangLACTATE/LACTIC ACIDon 68-72-1613Azudamw [Moles/Vol]1.1 mmol/LNormal0.4-1.9The [facility] HospitalComment on above:Performed By: #### LACT #### [facility] Laboratory [address] [address] [address] Amy PastranaPROF CHEM 8 (BAS METB)on 11-48-1871Pndya gap [Moles/Vol]14.0 mmol/LNormalThe [facility] HospitalComment on above:Performed By: #### BMP, CMADM #### [facility] Laboratory [address] [address] [address] Amy PastranaCalcium [Mass/Vol]9.4 mg/dLNormal8.5-10.1The [facility] Comment on above:Performed By: #### BMP, CMADM #### [facility] Laboratory [address] [address] [address] Amy PastranaChloride [Moles/Vol]101 mmol/YNejeao99-818Rno [facility] Comment on above:Performed By: #### BMP, CMADM #### [facility] Laboratory [address] [address] [address] Amy PastranaCO2 [Moles/Vol]24.0 mmol/XBfqptv54.0-32.0The [facility] Comment on above:Performed By: #### BMP, CMADM #### [facility] Laboratory [address] [address] [address] Amy PastranaCreatinine [Mass/Vol]0.93 mg/dLNormal0.55-1.02The [facility] HospitalComment on above:Performed By: #### BMP, CMADM #### [facility] Laboratory [address] [address] [address] Reyes ChangEGFR-AF SAMMARINESE>60Normal>=60The [facility] HospitalComment on above:Performed By: #### BMP, CMADM #### [facility] Laboratory [address] [address] [address] Amy VangGFR-NON AF NKDGVYAG62 mL/min/1.05f8Kwfxjh>=60The [facility] HospitalComment on above:Performed By: #### BMP, CMADM #### [facility] Laboratory [address] [address] [address] Amy PastranaGlucose [Mass/Vol]169 mg/dLCritically qsjk71-734Lqq [facility] HospitalComment on above:Performed By: #### BMP, CMADM #### [facility] Laboratory [address] [address] [address] Amy PastranaPotassium [Moles/Vol]4.0 mmol/LNormal3.5-5.1The [facility] Comment on above:Performed By: #### LUIS, CMADM #### [facility] Laboratory [address] [place] [address] Dr. Amy PastranaSodium [Moles/Vol]135 mmol/LCritically ags781-608Bga [facility] HospitalComment on above:Performed By: #### LUIS, CMADM #### [facility] Laboratory [address] [place] [address] Dr. Amy PastranaUrea nitrogen [Mass/Vol]12.0 mg/dLNormal7.0-18.0The [facility] HospitalComment on above:Performed By: #### LUIS, CMADM #### [facility] Laboratory [address] [place] [address] Dr. Amy Muhammad nitrogen/Creatinine [Mass ratio]12.9 mg/mgNormalThe [facility] HospitalComment on above:Performed By: #### LUIS, CMADM #### [facility] Laboratory [address] [place] [address] Dr. Amy PastranaXR CHEST 2 Von 57-54-8188PQ CHEST 2 VEXAMINATION: XR CHEST 2 V HISTORY: COUGH COMPARISON: 07/19/2017 TECHNIQUE: PA and lateral FINDINGS: LUNGS: No significant pulmonary parenchymal abnormalities. VASCULATURE: No increased pulmonary vasculature. PLEURA: No pneumothorax, effusion, or pleural thickening. CARDIAC: No cardiomegaly or cardiac silhouette abnormality. MEDIASTINUM: No visible mass or adenopathy. BONES: No fracture or visible bone lesion. OTHER: Negative. IMPRESSION: No acute disease. Electronically authenticated by: BENJAMIN MAGUIRE Date: 2022-03-20 06:44[facility] CenterMG MAMM SCREEN 3D MELECIO CADon [id number] MAMM SCREEN 3D MELECIO CAD Patient: PIETRO ARANGO Exam Date: 05/29/2021 : 1955 Gender:F Ordering : DR JUVE OLSON Admission #: [id number] Family : Order #: [id number] CLICK HERE TO VIEW EXAM RADIOLOGY REPORT [...] None Family Cancers None LOCATION: [facility] BREAST COMPOSITION: Heterogeneously dense,which may obscure [...] PALPABLE LUMP SHOULD BE BIOPSIED. Dictated by: Soni Funes M.D. on 05/29/2021 at 15:34 Approved by: Soni Funes M.D. on 05/29/2021 at 15:40[facility] CenterGeneral Surgery Office/Clinic Noteon 51-44-2860Wvcrimg Surgery Office/Clinic NoteChief Complaint self referral for ABD pain HPI Staff 64 year old female presents on self referral from [facility] ED for complaint of abdominal pain. CT ABD/pelvis completed on 11/07 while in ED. Patient thought ABD pain may be related to constipation; took mag citrate after discharge from ED which produced BM but did not improve her pain. Complains of bloating. Denies nausea or vomiting. Last colonoscopy greater then 10 years ago reportednormal per patient. Long standing history of constipation. Has taken Ex- lax, stool softeners and Miralax which help at times and not at other times. History of Present Illness 64 yo female with h/o htn, back pain, recently seen in ED at [facility] for constipation and mid/LLQ crampy abdominal [...] swallowing difficulties, no hearing loss, no ear infection(s),no nose bleeds. Cardiovascular: normal blood pressure, no chest pain, regular heartbeat, no heart murmur. Respiratory: no shortness of breath, no cough, no asthma, no wheezing. Gastrointestinal: no nausea, no vomiting, no diarrhea, mdoerate constipation, no blood in stool, nochange in bowel habits, mild abdominal pain, no [...] (hypertension) Historical No qualifying data Procedure/Surgical History [facility] - Total abdominal hysterectomy and bilateral salpingo-oophorectomy (03/03/2004), History oflumbar spine surgery. Medications aspirin 81 mg Chew [...] mellitus type 2: Mother and Brother. Hypertension: Mother.[facility] HospitalComment on above:Result Comment: Electronically Signed By: Carl LU MD\Date and Time Signed: 11/22/19 16:04 EDTFacesheeton 83-79-6693Patbeholg [id number]#1.00CD:127[facility] HospitalAmbulatory Clinical Summaryon 18-85-5738Gmnfwtdopj Clinical Summary {45-oq-38-1o-ll-42-32-21-14-f7-8u-bj-c5-14-45-92}CD:[id number] Van Wert Hospital CenterED Note-Physicianon 65-57-2836XN Note-Physician [id number]#1.00CD:[address] [place], [place] [address]RAD - CT Reporton 42-57-6724DMQ - CT Report [id number]#1.00CD:127[facility] HospitalMAGR Preoperative Recordon 03-31-0668ZEUI Preoperative RecordMAGR Pre-Op Record Summary Primary Physician: Madan Leal DO Finalized Date/Time: 08/04/18 09:26:06 Pt. Name: NBAPIETRO/Sex: 1955 FEMALE Med Rec #: [id number] Physician: Madan Leal DO Financial #: [id number] Pt. Type: D Room/Bed: [facility] Admit/Disch: 07/22/18 11:48:00 - 07/22/18 17:40:00 Institution: [...] ready for surgery. The patient remains free froms/s of injury. Patient/family express understanding of plan of care and participate in decisions affectinghis or her perioperrative plan of care. Allergies documented appropriately. Patient identifiers and consent correct. General Comments: Denies chest pain, shortness of breath or illnessess. Denies pacemaker/defib. Denies sleep apnea. Finalized By: Halley Hinkle RN Document Signatures Signed By: Halley Hinkle RN 08/04/18 09:26[facility] Medical CenterCoding Summaryon 07-29-2018 Coding SummaryCODING DATE: 07/29/2018 [facility] STATUS: Home PAYOR: Medicare MC APC DESCRIPTION [...] By: Paige Fernandes Date Saved: 07/29/2018 07:14 [facility]-FairhillConsent Formson 07-24-2018 Consent [id number]#1.00OTGTIFFKettering Health – Soin Medical CenterHistory and Physicalon 64-69-9070Plsxhqt and Physical [id number]#1.00OTPro[facility]ica [facility] Outside Recordson 89-76-9873Fgfpvew Records [id number]#1.00[facility] Provider Orderson 10-32-2195Whnygew mass conc [id number]#1.00[facility] HealthMAGR Postoperative Recordon [id number] Postoperative RecordMAGR Phase II Record Summary Primary Physician: Madan Leal DO Finalized Date/Time: 07/23/18 10:35:15 Pt. Name: PIETRO ARANGO /Sex: 1955 FEMALE Med Rec #: [id number] Physician: Madan Leal DO Financial #: [id number] Pt. Type: D Room/Bed: [facility] Admit/Disch: 07/22/18 11:48:00 - 07/22/18 17:40:00 Institution: Phase II Case Times MAGR Pre-Care Text: Patient is free from s/s of injury. Patient remains free from compromised physical state related tosurgery or anesthesia. Patient comfort maintained. Patient/family verbalize [...] discharge instructions. General Comments: CARE PER 2 [facility] NURSING STAFF Finalized By: Sharmila Grover RN Document Signatures Signed By: Sharmila Grover RN 07/23/18 10:35[facility] Medical CenterAnesthesia Noteon 31-04-7906Dclhlhlhjr NotePatient: PIETRO ARANGO Age: 63 years Sex: FEMALE : [birth year] [...] history): All Problems Hypertension / SNOMED CT 3086811473 / Confirmed Histories Family History: No family history items have been selected or recorded. Procedure history: Hysterectomy (065107830). Social History Alcohol Assessment Use: Past. Tobacco Assessment Never (less than 100 in lifetime) Tobacco Use:. Substance Abuse Assessment Substance use: Never. . Physical Examination VS/Measurements Vital Signs (last 24 hrs) Last Charted Heart Rate Peripheral 92 bpm (JULY 22 12:) Resp Rate 18 br/min (JULY 22:) SBP H 170mmHg (JULY 22:) DBP H 98mmHg (JULY 22:) SpO2 99 % (JULY 22 12:) Weight 92.900 kg (JULY 22 12:) Height 166.37 cm (JULY 22:) General: Alert and oriented, No acute distress. Airway: Mallampati classification: II (soft palate, fauces, uvula visible). Mouth: Within normal limits. Respiratory: Respirations are non-labored. Review / Management Laboratory Results ECG interpretation: Normal sinus rhythm. Plan [place] [employer] Anesthesiologists#(ASA) physical status classification: Class II. Anesthetic Preoperative Plan Anesthesia: Monitored anesthesia care. Anesthetic plan, risks, benefits, and alternatives discussedwith the patient and/or family. Patient verbalized understanding. Family/Guardian present. Informedconsent was given. Consent was signed by the patient. [Electronically Signed on: 07/22/2018 14:59 EDT] Vinny Eli MD [Verified on: 07/22/2018 14:59 EDT] Vinny Eli MDKettering Health – Soin Medical CenterEducation Noteon 61-71-0843Yhtbxytuq NoteEducation Materials DR. FARRELL POST OPERATIVE KYPHOPLASTY OR [...] or large Band-Aid until the dressing or Band- Aid are clean and dry for 2 days. You can then leave it open to air -If you have any questions or concerns, please call the office at [phone] -Follow up as scheduledNoOhioHealth Nelsonville Health CenterInpatient Patient Summaryon 43-48-4534Vzzzeseja [place] [address] Patient Discharge Instructions Name: PIETRO ARANGO : [birth year] Patient Address: [address] [place] [address] Primary Care Provider: Name: JEFFERY HERMAN After you are discharged if you find you have any questions, please, call [phone] ext [phone] to speak to a nurse. Discharge Diagnosis: [...] business decisions or sign any legal documents [facility] would like to thank you for allowing us to assist you with your healthcare needs.The following includes patient education materials and information regarding your injury/illness. PIETRO ARANGO has been given the following list of follow-up instructions, prescriptions, and patient education materials: Follow-up Instructions With: Address: When: Madan Leal [address] [place] [address], [address] [place] [address] Business (2) In 13 days 08/04/18 With: Address: When: [address], [facility] [address] [place], [place] [id number] Business (1) Medications During the course of [...] or large Band-Aid until the dressing or Band- Aid are clean and dry for 2 days. You can then leave it open to air -If you have any questions or concerns, please call the office at [phone] -Follow up as scheduled Viruses or Bacteria [...] Centers for Disease Control and Prevention November 2013[facility] MAGR Intraoperative Recordon [id number] Intraoperative RecordMAGR Intra-Op Record Summary Primary Physician: Madan Leal DO Finalized Date/Time: 07/22/18 16:05:48 Pt. Name: PIETRO ARANGO /Sex: 1955 FEMALE Med Rec #: [id number] Physician: Madan Leal DO Financial #: [id number] Pt. Type: D Room/Bed: [facility] Admit/Disch: 07/22/18 11:48:00 - Institution: Case Times [...] Andrew DO Role Performed Surgeon - Primary Senior Financial Reporting Accountant Senior Financial Reporting Accountant Time In 07/22/18 15:00:00 07/22/18 15:00:00 07/22/18 15:00:00 Time Out 07/22/18 15:50:00 07/22/18 15:50:00 07/22/18 15:50:00 Procedure Kyphoplasty Kyphoplasty Kyphoplasty Last Modified By: Sharmila Grover RN, Barbara RN Long, Barbara RN 07/22/18 15:50:46 07/22/18 15:50:46 07/22/18 15:50:46 Entry 4 Entry 5 Entry 6 Case Attendee Georgia Nair Linda M Calmes, Luke T Role Performed Scrub Personnel Senior Financial Reporting Accountant Pattern Mechanic Time In 07/22/18 15:00:00 07/22/18 15:00:00 07/22/18 15:00:00 Time Out 07/22/18 15:50:00 07/22/18 15:50:00 07/22/18 15:50:00 Procedure Kyphoplasty Kyphoplasty Kyphoplasty Last Modified By: Sharmila Grover RN, Barbara RN Long, Barbara RN 07/22/18 15:50:46 07/22/18 15:50:46 07/22/18 15:50:46 Entry 7 Entry 8 Case Attendee Candelaria Hall Jenna Role Performed Pattern Mechanic Pattern Mechanic Time In 07/22/18 15:00:00 07/22/18 15:00:00 Time [...] Performs skin preparation Im.270.1 Implements protective measures toprevent skin and tissue injury due to chemical [...] Implant/Explant 07/22/18 15:40:00 BONE CEMENT Date/Time Implanted/Explanted ElvisMadan jarrell Calibrator Barometers [employer] By: Barak JEROME Lot Number [id number] Expiration Date 04/30/20 Implant Usage Data Site Back Quantity 1 Steam Frame Operator Sterility Outcome Met (O.30) Yes Last Modified [...] Signatures Signed By: Sharmila Grover RN 07/22/18 16:05[facility] CenterOperative Report - Surgeon/Physicianon [id number] Report - Surgeon/PhysicianProcedure: Kyphoplasty T12 cavity creation with the balloon [...] operative suite and carefully positioned prone on theradiolucent table. I personally sit up unsupervised biplanar [...] carefully removed. I made sure there were nocemented tails extending into the soft tissues. The [...] [Verified on: 07/22/2018 16:01 EDT] Madan Leal [facility] SystemXR Fluoro Surgeryon 07-22-2018 XR Fluoro SurgeryEXAM: XR Spine Thoracic 2 Views, XR Fluoro [...] Alli Dunaway MD 07/23/18 7:26 am Technologist: LTCAdams County Regional Medical CenterXR Spine Thoracic 2 Viewson 07-22-2018 XR Spine Thoracic 2 ViewsEXAM: XR Spine Thoracic 2 Views, XR Fluoro [...] Alli Dunaway MD 07/23/18 7:26 am Technologist: SINDY SALASParma Community General Hospital HospitalCoding Summaryon [id number] SummaryCODING DATE: 07/20/2018 [facility] STATUS: Home PAYOR: Medicare MC APC DESCRIPTION [...] By: Kimberly Wilson Date Saved: 06/30/2018 01:44 [facility] NorthCoding Summaryon 31-08-8478Wnzoof SummaryCODING DATE: 06/30/2018 [facility] STATUS: Home PAYOR: Medicare MC APC DESCRIPTION [...] By: Kimberly Wilson Date Saved: 06/30/2018 01:44 [facility] NorthAnesthesia Noteon 16-93-1117Bhfylpyeml NotePatient: PIETRO ARANGO Age: 63 years Sex: FEMALE : 51 [...] the NTG and refered her to a finisher denture for stress testing in 08/2017. She did [...] history): All Problems Hypertension / SNOMED CT [id number] / Confirmed Histories Family History: No family history items have been selected or recorded. Procedure history: Hysterectomy ([id number]). Social History Alcohol Assessment Use: Past. Tobacco [...] 26 10:34) Resp Rate 18 br/min (JUN 26 10:34) SBP H 161mmHg (JUN 26 10:34) DBP 90 mmHg (JUN 26:34) SpO2 96 % (JUN 26:34) Weight 94.700 kg (APR 26 10:34) Height 166.37 cm (JUN 26 10:34) Review / Management Laboratory Results Plan Anesthetic Preoperative Plan Patient verbalized understanding. I discussed with the patient the need for a cardiac evaluation before proceeding with the surgery. If the surgery would be required sooner on an urgent basis she would need to have the surgery done at a facility with a mobile lab technician and an insulating machine operator. . [Electronically Signed on: 06/26/2018 12:11 EDT] Benjamin Fajardo DO [Verified on: 06/26/2018 12:11 EDT] Benjamin Fajardo [facility] SystemProess Note - Nurseon 06-26-2018 Protein mass concSpoke with Duarte at Dr. Herman's office in regards to a cardiology consult that is needed for surgery clearance. Verbalized understanding. Duarte will let pt know once she gets her an appointment. [Electronically Signed on: 06/26/2018 13:30 EDT] Ruam Pérez RN [Verified on: 06/26/2018 13:30 EDT] Ruma Pérez RN [facility] Vital Signs Date TimeVital SignValuePerforming DemiebtyjZaqmwcnx49-81-3992 11:05-0400Body hnbdmztcivk71.2 [degF]Hayden Camargo MD Work Phone: [facility]08-21-2025 11:05-0400 Diastolic blood xitrtaqd81 mm[Hg]Hayden Camargo MD Work Phone: [facility]08-21-2025 11:05-0400 Heart rate76 /Blue Camargo MD Work Phone: [facility]08-21-2025 11:05-0400 Respiratory rate18 /Blue Camargo MD Work Phone: [facility]08-21-2025 11:05-0400 SaO2% (BldA) [Mass fraction]100 %Hayden Camargo MD Work Phone: [facility]08-21-2025 11:05-0400 Systolic blood mm[Hg]Hayden Camargo MD Work Phone: [facility]07-11-2025 13:35-0400 Body .1 Dayami Connors MD Work Phone: [facility]07-11-2025 13:35-0400Body mass index (BMI) [Ratio]31.55 kg/o1FexjmZeina Connors MD Work Phone: [facility]07-11-2025 13:35-0400Body aufsyobwkzp81.1 [degF]Zeina Connors MD Work Phone: [facility] [employer] Yenjkj01-74-5904 13:35-0400Body kgZeina Connors MD Work Phone: [facility]07-11-2025 13:35-0400Diastolic blood iladvbor28 mm[Hg]Zeina Connors MD Work Phone: [facility]07-11-2025 13:35-0400Heart rate 78 /Raven Connors MD Work Phone: [facility] [employer] Mgrhpc03-89-7995 13:35-0400 Respiratory rate15 /minZeina Connors MD Work Phone: [facility]07-11-2025 13:35-0674MbY7% (BldA) [Mass fraction]98 %Zeina Connors MD Work Phone: [facility]07-11-2025 13:35-0400Systolic blood mm[Hg]Zeina Connors MD Work Phone: [address] [place], [place] 2488004-11-2025 11:17-0400Body cmiaan956.1 Dayami Connors MD Work Phone: [address] [place], [place] 2488004-11-2025 11:17-0400Body mass index (BMI) [Ratio]32.52 kg/q8DvtbxZeina Connors MD Work Phone: [phone] [place], [place] 4393304-11-2025 11:17-0400Body ynpbfjgrhiv67.5 [degF]Zeina Connors MD Work Phone: [phone] [place], [place] 4393304-11-2025 11:17-0400Body imbfzk57.63 kgZeina Connors MD Work Phone: [phone] [place], [place] 4393304-11-2025 11:17-0400Diastolic blood xthuovwx92 mm[Hg]Zeina Connors MD Work Phone: [phone] [place], [place] 4393304-11-2025 11:17-0400Heart rate 85 /minZeina Connors MD Work Phone: 1([phone])357-[address] [place], [place] 4393304-11-2025 11:17-0400 Respiratory rate18 /minZeina Connors MD Work Phone: [address] [place], [place] 2488004-11-2025 11:17-8414VjQ0% (BldA) [Mass fraction]100 %Zeina Connors MD Work Phone: [phone] [place], [place] 4393304-11-2025 11:17-0400Systolic blood qlswsmci757 mm[Hg]Zeina Connors MD Work Phone: [phone] [place], [place] 4393308-22-2024 15:38-0400Body gfnupi071.1 cmTeena Carrillo DPRula Work Phone: [facility] DivisionBmkijbjxli97-90-8525 15:38-0400Body mass index (BMI) [Ratio]32.78 kg/i6VpxwuqxTeena Carrillo DPM Work Phone: [facility] DivisionQxbthccymb32-60-0740 15:38-0400Body mvaqkq31.36 kgTeena Carrillo DPM Work Phone: [facility] Encounters Encounter DateEncounter TypeCare ProviderFacilityStart: 10-21-2024 End: 01-82-1370Ghdtxeysz to same day surgery Von Horta MD-[facility] Work Phone: Start: 10-21-2024 End: 26-58-4905uqisuetxhuXvjsvxp M Hoy MD Work Phone: [facility] Work Phone: Start: 10-08-2024 End: 17-42-6460Yjgdgrz encounter procedureHayden Horta MD-[facility] Work Phone: Start: 10-08-2024 End: 05-40-9904dclpjzoddnHsxgclp M Hoy MD Work Phone: [facility] Work Phone: Start: 09-10-2024 End: 50-69-5006Liroykbkxsgqt procedureJhon Lemon RNDoBaton [facility] General [facility] - Medical OncologyStart: 09-10-2024 End: 99-35-7580Yucjib outpatient visit 25 minutesZeina Connors MD Work Phone: [facility] - Medical OncologyComment on above:MGUS (monoclonal gammopathy of unknown significance) (Primary Dx); Elevated blood proteinStart: 09-10-2024 End: 99-79-8794tromoasykxZWLAWMetropolitan State Hospitaltart: 09-01-2024 End: 95-76-2631Gohtna Rob Milton RNDoBaton Rouge General Medical Center - Medical OncologyComment on above:Hyperproteinemia (Primary Dx); Monoclonal gammopathy; Elevated blood proteinStart: 08-13-2024 End: 64-19-0900Bskvvnlud encounterPaige Schofield CMAProMedica Physicians CardiologyStart: 07-29-2024 End: 32-19-4880ruthzzwaguNAFJWOB M [facility] Campustart: 06-11-2024 End: 91-94-9740slfugwjspnVTXOR N XIAPSt. [facility] Hospital HospitalStart: 06-11-2024 End: 11-20-0155Myretefdsvxuy procedureJoscot Lemon RNDorot Reji [facility] - Medical OncologyStart: 06-11-2024 End: 29-48-5667Yzalgn outpatient new 45 minutesZeina Connors MD Work Phone: [place] Reji [facility] - Medical OncologyComment on above:Monoclonal gammopathy (Primary Dx); Elevated blood proteinStart: 06-11-2024 End: 00-26-0982ynksqvoiboDBDWE N [facility] HospitalStart: 11-11-2023 End: 05-08-5460mcpnjxuyumANGQK C [facility] Hospitaltart: 10-23-2023 End: 61-77-4836Woeari outpatient visit 25 minutesTeena Carrillo DPM Work Phone: [facility] PODIATRYComment on above:Plantar fasciitis, bilateral (Primary Dx); Type II or unspecified type diabetes mellitus with neurological manifestations, not stated as uncontrolled(250.60) (CMS/HCC); Gastrocnemius equinus of right lower extremity; Gastrocnemius equinus of left lower extremityStart: 10-23-2023 End: 91-01-3868vsdfyvcrqgAUDROXT W CLARKENot AvailableStart: 10-23-2023 End: 64-95-3952Okeycz Veronica Carrillo DPM Work Phone: [facility] PODIATRYStart: 10-23-2023 End: 17-79-0573Bkrbvojonah Carrillo DPM Work Phone: [facility] PODIATRYStart: 03-20-2022 End: 32-40-3554qogbzrpsklFGQEL PARKERFacility:A2Egbzc: 05-29-2021 End: 85-92-3703rrdkhwqeyrOK ABEER AHMEDFacility:P8Djjrr: 08-08-2017 End: 22-52-0031JgdgmjrefnNHGARGG PHYSICIANFacility:[facility] Procedures DateProcedureProcedure DetailPerforming ClinicianStart: 37-90-5823Ekpxwjsybzq of left breastHayden Camargo MD Work Phone: Start: 88-69-0421Igvsawmo mammographyHayden Camargo MD Work Phone: Start: 68-19-4830Tequfu procedureHayden Camargo MD Work Phone: Start: 73-34-3561Qatpwjijdjc of left breastHayden Camargo MD Work Phone: Start: 78-99-1866Sysdtv-up visitFollow-upCHANG N DORY Plan of Treatment DateCare ActivityDetailAuthorStart: 86-15-0687Nnivy BMI ScreeningAdult BMI ScreeningMercy Memorial Hospital SystemStart: 22-83-9423Fnqonua ScreeningTobacco ScreeningMercy Memorial Hospital SystemStart: 04-03-2025 End: 01-11-0498NHH W Auto Differential panel - BloodCBC with auto diff Lab Routine MGUS (monoclonal gammopathy of unknown significance) Elevated blood p rotein Hyperproteinemia Monoclonal gammopathy Expected: 04/03/2025, Expires: 04/03/2026[facility] SystemComment on above:Expected: 04/03/2025, Expires: 04/03/2026Start: 04-03-2025 End: 76-97-3276Lpufiqcmikpae metabolic 2000 panel - Serum or PlasmaComprehensive metabolic panel Lab Routine MGUS (monoclonal gammopathy of unknown significance) Elevated blood protein Hyperproteinemia Monoclonal gammopathy Expected: 04/03/2025, Expires: 04/03/2026[facility] SystemComment on above:Expected: 04/03/2025, Expires: 04/03/2026Start: 04-03-2025 End: 38-40-7221Qwwb light chainsFree light chains Lab Routine MGUS (monoclonal gammopathy of unknown significance) Elevated blood protein Hyperproteinemia Monoclonal gammopathy Expected: 04/03/2025, Expires: 04/03/2026ProOhiohealth Hardin Memorial Hospital SystemComment on above:Expected: 04/03/2025, Expires: 04/03/2026Start: 04-03-2025 End: 30-25-2881Zmlcxkqngxlpvuoflbbuk for Therapy MonitoringImmunoelectrophoresis for Therapy Monitoring Lab Routine MGUS (monoclonal gammopathy of unknown sign ificance) Elevated blood protein Hyperproteinemia Monoclonal gammopathy Expected: 04/03/2025, Expires: 04/03/2026[facility] Medical CenterComment on above:Expected: 04/03/2025, Expires: 04/03/2026Start: 04-03-2025 End: 93-46-0884Cytgrdc electrophoresis, serumProtein electrophoresis, serum Lab Routine MGUS (monoclonal gammopathy of unknown significance) Elevated blood protein Hyperproteinemia Monoclonal gammopathy Expected: 04/03/2025, Expires: 04/03/2026[facility] Work Phone: Comment on above:Expected: 04/03/2025, Expires: 04/03/2026Start: 85-55-1460Qtacrktoc vaccinationInfluenza VaccineLifeBrite Community Hospital of Stokestart: 09-10-2024 End: 82-14-2266SSR W Auto Differential panel - BloodCBC with auto diff Lab Routine Hyperproteinemia Expected: 09/10/2024 (Approximate), Expires: 06/11/2025 [facility] Medical CenterComment on above:Expected: 09/10/2024 (Approximate), Expires: 06/11/2025Start: 09-10-2024 End: 55-84-5285Ufbyhweacjmij metabolic 2000 panel - Serum or PlasmaComprehensive metabolic panel Lab Routine Hyperproteinemia Expected: 09/10/2024 (Approximate), Expires: 06/11/2025[facility]itt[facility] Medical CenterComment on above: Expected: 09/10/2024 (Approximate), Expires: 06/11/2025Start: 09-10-2024 End: 99-64-5812Dzrj light chainsFree light chains Lab Routine Hyperproteinemia Expected: 09/10/2024 (Approximate), Expires: 06/11/2025[facility] Comment on above:Expected: 09/10/2024 (Approximate), Expires: 06/11/2025Start: 09-10-2024 End: 32-35-8385Doscxps electrophoresis, serumProtein electrophoresis, serum Lab Routine Hyperproteinemia Expected: 09/10/2024 (Approximate), Expires: 06/11/2025 [employer] Work Phone: Comment on above:Expected: 09/10/2024 (Approximate), Expires: 06/11/2025Start: 09-10-2024 End: 85-75-8764Hjvjs ImmunofixationSerum Immunofixation Lab Routine Hyperproteinemia Expected: 09/10/2024 (Approximate), Expires: 06/11/2025 [facility] HospitalInfoBionic SystemComment on above:Expected: 09/10/2024 (Approximate), Expires: 06/11/2025Start: 09-10-2024 End: 15-87-6115Bqgzgnf encounter zaqpvznbk35/11/2025 1:30 PM EDT Office Visit Maria Antonia Reji [facility] - Medical Oncology [facility] [place] [address] Zeina Connors MD [address] [place] [address] [address] [place], [place] [id number] [facility] - Medical OncologyStart: 06-11-2024 End: 27-74-1600FU Bones Complete Survey ViewsX-ray osseous survey complete Imaging Routine Hyperproteinemia Expected: 06/11/2024, Expires: 06/11/2025 [facility] HospitalInfoBionic SystemComment on above:Expected: 06/11/2024, Expires: 06/11/2025Start: 11-18-2023 End: 32-66-9049Dnsaxzr encounter ugxxkipmw46/17/2024 9:30 AM EDT Office Visit [facility] [address] [place] [address] Teena Carrillo, DPM [address] [place] [address] [facility]ODIATRYStart: 07-68-0701NHILO-19 Vaccine ( season) COVID-19 Vaccine ( season)[facility] SystemStart: 11-02-2023 Influenza vaccinationInfluenza Vaccine (#1)[facility] HealthcareStart: 10-23-2023 End: 81-14-6728Vijbpfi encounter wjbaimrhg53/22/2024 3:30 PM EDT Office Visit [facility] [address] [place] [address] Teena Carrillo, DPM [address] [place] [address] ArrivedNEW WAYSIDE EMERGENCY HOSPITAL PODIATRYComment on above:ArrivedStart: 77-03-0228Wxbh Risk ScreeningFall Risk ScreeningLifeBrite Community Hospital of Stokestart: 2018 Pneumococcal Vaccine: 65+ Years (1 of 1 - PCV)Pneumococcal Vaccine: 65+ Years (1 of 1 - PCV)[facility] HealthcareStart: 49-46-7927Yiglntcgthznir of varicella zoster vaccineZoster (Shingles) Vaccine (1 of 2)[facility] Stokestart: 15-12-9100Jesxqsuip for malignant neoplasm of breastMammogramNOMS Healthcare Start: 03-62-4363OPyX,Tdap and Td Vaccines (1 - Tdap)DTaP,Tdap and Td Vaccines (1 - Tdap)[facility]art: 83-96-7583Qcxaj BMI Follow Up PlanAdult BMI Follow Up PlanLifeBrite Community Hospital of Stokestart: 17-54-7419Ynrjljoncs Screening Depression ScreeningLifeBrite Community Hospital of Stokestart: 02[birth year]28-1956Medicare Annual Wellness (AWV)Medicare Annual Wellness (AWV)[facility] HealthcareStart: 1953 Screening for malignant neoplasm of colonNONM Healthcare End: 62-95-0662G[facility] W Auto Differential panel - BloodCBC auto differential Lab Routine Hyperproteinemia Monoclonal gammopathy Elevated blood protein 1 Oc currences starting 09/01/2024 until 09/01/2025[facility] SystemComment on above:1 Occurrences starting 09/01/2024 until 09/01/2025 End: 66-35-1401Viigbobjqwcdy metabolic 2000 panel - Serum or PlasmaComprehensive metabolic panel Lab Routine Hyperproteinemia Monoclonal gammopathy Elevated blood protein 1 Occurrences starting 09/01/2024 until 09/01/2025ProOhiohealth Hardin Memorial Hospital SystemComment on above:1 Occurrences starting 09/01/2024 until 09/01/2025 End: 79-81-8074Ocpw light chainsFree light chains Lab Routine Hyperproteinemia Monoclonal gammopathy Elevated blood protein 1 Occurrences starting 09/01/2024 until 09/01/2025ProOhiohealth Hardin Memorial Hospital SystemComment on above:1 Occurrences starting 09/01/2024 until 09/01/2025 End: 22-51-3946Mlblstx electrophoresis, serumProtein electrophoresis, serum Lab Routine Hyperproteinemia Monoclonal gammopathy Elevated blood protein 1 Occurrences starting 09/01/2024 until 09/01/2025[facility] Work Phone: Comment on above:1 Occurrences starting 09/01/2024 until 09/01/2025 End: 35-53-5918Xvflr ImmunofixationSerum Immunofixation Lab Routine Hyperproteinemia Monoclonal gammopathy Elevated blood protein 1 Occurrences starting 09/01/2024 until 09/01/2025[facility] Medical CenterComment on above:1 Occurrences starting 09/01/2024 until 09/01/2025 Payers DatePayer CategoryPayerPolicy [id number]-pay2024Medicare HMO [id number] [id number] [id number] 2..[id number] 2..1.861080.3.57[id number] 2.840.1.064216.3.57[id number] 2.16.840.1.597343.3.57[id number] 2.16.840.1.063687.3.57[id number] 2.16.840.1.087150.3.57[id number] 2.16.840.1.832717.3.57[id number] 2.16.840.1.127608.3.57[id number] 2.16.840.1.388524.3.579.2.1286MedicaidCaresource [id number] 2.16.840.1.8[id number] 2.16.840.1.304406.3.579.2.531 Social History DateTypeDetailFacilityStart: 08-11-2019 End: 02-89-5930Bkfqjwi smoking status NHISNever smoked tobaccoNONM Healthcare Start: 52-17-3057Ukbbajimv beverage intakeLifetime non-drinker (finding)[facility] HealthcareStart: 04-13-2020 End: 85-48-0260Ygxrdaf of Social functionNOMS HealthcareStart: 04-13-2020 End: 18-35-3236Pehnnij use panelNOMS HealthcareStart: 68-59-9909Pft assigned at birthNot on fileNOMS HealthcareTobacco smoking status NHISTobacco smoking consumption unknownNOMS HealthcareStart: 35-38-8429Rlcxhwb use and exposure Smokeless tobacco non-userProShelby [facility] Health SystemStart: 06-11-2024 End: 43-30-3328Xlakflmsz beverage intakeEx-drinker (finding)[facility] SystemChildcareUnknownProMedica Health SystemStart: 21-55-4526UqyNitzaj (finding)[facility] SystemStart: 97-05-1795Rzi Assigned At [facility] Medical Equipment Procedure CodeEquipment CodeEquipment Original TextEquipment IdentifierDatesLens Iol Ultrasert 24.5d - [id number] - [id number]: 08-17-2019 Start: 03-25-2024 Clinical Notes 10-23-2023 to 10-21-2024 Note Date & UfmtSgssHrxlukgu95-01-6303 Evaluation note* Diagnosis Onset Date Resolution Status Admit Date Breast calcification, left acuteAugust 2024 10:31am [facility] Work Phone: 1(878) 595-854107-11-2025 History of Present illness Narrative* Jhon Lemon RN - 09/10/2024 2:00 PM EDT Seen by Dr. Connors today. Orders for: SPEP, IFX, CBC, CMP 05/2025. documented in this encounterSumma Health [facility]07-11-2025 History of Present illness Narrative* Zeina Connors MD - 09/10/2024 1:30 PM EDT [facility] 09/10/24 Pietro Arango is a 69 y.o. year old female seen today in the oncology clinic. Chief Complaint Patient presents with Follow-up History of Present Illness: Mrs. Arango is a 69 y.o. female who is [...] up-to-date with her mammogram and colonoscopy screening. T12 compression fracture status post kyphoplasty 2018 (the patient had injury while sleepwalking and he the corner of the table). Interval history: The patient is doing very well, no significant bone pain no new symptoms. She told me she has a chronic issue of sleepwalking. She had to use a belt every night when she is asleep. Past Medical History: Diagnosis Date Cataract Diabetes mellitus (CMS-HCC) Dizziness Glaucoma Hyperlipidemia Hypertension Past Surgical History: Procedure Laterality Date BACK SURGERY BREAST BIOPSY EYE SURGERY HYSTERECTOMY 2005 PHACO KELMAN I IMPLANT INTRAOCULAR LENS Left 08/17/2019 Performed by [facility]y Ac[facility] SMALL INTESTINE SURG[facility] Family History Problem Relation Age of Onset Hypertension Mother Diabetes Mother Glaucoma Mother Diabetes Brother Social History Socioeconomic History Marital status: Single Tobacco Use Smoking status: Never Smokeless tobacco: Never Vaping Use Vaping status: Never Used Substance and Sexual Activity Alcohol use: Not Currently Drug use: Never Sexual activity: Defer No Known Allergies Medication List Accurate as of September 10, 2024 1:56 PM. If you have any questions, ask your nurse or doctor. Medications Continued This Visit amLODIPine 10 mg tablet Refills: 0 Commonly known as: NORVASC calcium carbonate 600 mg elemental (1,500 mg) tablet Refills: 0 Dose: 600 mg Commonly known as: OS-KINGS calcium carbonate-vitamin D3 500 mg (1,250 mg) - 200 units per tablet Refills: 0 Dose: 1 tablet Commonly known as: OSCAL 500 + D cinnamon bark extract 500 mg tablet Refills: [...] appearing, in no acute distress. Vitals: BP 135/72 Pulse 78 Temp 36.7 C (98.1 F) (Oral) Resp 15 Ht 165.1 cm (5' 5 ) Wt 86 kg (189 lb 9.6 oz) SpO2 98% BMI 31.55 kg/m Body mass index is 31.55 kg/m . Eyes: No icterus, no conjuctival erythema ENT: Pharyngeal mucosa was moist without exudate and inflammation or ulcerations. Tongue was midline and appeared normal.Gums were unremarkable. Lymph nodes: No palpable adenopathy Neck: Supple. There were no masses, tenderness. Trachea was midline. Respiratory: Respirations were non-labored. Lungs were clear to auscultation. There was no dullnessto percussion. Cardiac: Regular rate and rhythm, S1 [...] Recent Imaging: No results found. Recent Labs: Recent Results (from the past 2 weeks) Protein electrophoresis, serum Collection Time: 09/01/24 8:44 AM Result Value Ref Range TOTAL PROTEIN 7.4 6.0 - 8.0 g/dL ALPHA 1 GLOBULIN 0.3 0.1 - 0.4 g/dL ALPHA 2 GLOBULIN 0.7 0.4 - 1.1 g/dL BETA GLOBULIN 0.8 0.5 - 1.2 g/dL GAMMA GLOBULIN 1.6 0.5 - 1.6 g/dL Protein Electrophoresis Interp See Pathology Report Albumin 4.1 3.4 - 5.3 g/dL Serum Immunofixation Collection Time: 09/01/24 8:44 AM Result Value Ref Range IGA 101 68 - 378 mg/dL IGG 1,802 (H) 635 - 1,741 mg/dL IGM 60 45 - 281 mg/dL IMMUNOFIX INTERP See Pathology Report Free light chains Collection Time: 09/01/24 8:44 AM Result Value Ref Range FREE JULIO/LAMBD RATIO 2.02 (H) 0.26 - 1.65 FREE KAPPA LT CHAINS 3.32 (H) 0.33 - 1.94 mg/dL FREE LAMBDA LT CHAINS 1.64 0.57 - 2.63 mg/dL CBC auto differential Collection Time: 09/01/24 8:44 AM Result Value Ref Range WBC 6.2 4 - 11 x10E9/L RBC Count 4.00 3.8 - 5.2 X10E12/L Hemoglobin 11.7 11.7 - 15.5 g/dL Hematocrit 36.0 35 - 47 % MCV 90 80 - 100 fL MCH 29.3 27 - 34 pg MCHC 32.6 32 - 36 g/dL RDW 14.2 11.5 - 15 % Platelet Count 249 150 - 450 X10E9/L MPV 9.2 7 - 12 fL Neutrophils % 58.8 % Lymphocytes % 31.6 % Monocytes % 7.5 % Eosinophils % 1.1 % Basophils % 1.0 % Neutrophils Absolute (A) 3.7 1.5 - 6.6 10*3/uL Lymphocytes Absolute 2.0 1.0 - 3.5 10*3/uL Monocytes Absolute 0.5 0.0 - 0.9 10*3/uL Eosinophils Absolute 0.1 0.0 - 0.4 10*3/uL Basophils Absolute 0.1 0.0 - 0.2 10*3/uL Differential Type AUTOMATED DIFFERENTIAL Comprehensive metabolic panel Collection Time: 09/01/24 8:44 AM Result Value Ref Range SODIUM 138 134 - 146 mmol/L POTASSIUM 4.6 3.5 - 5.0 mmol/L CHLORIDE 103 98 - 109 mmol/L CARBON DIOXIDE 27 22 - 32 mmol/L ANION GAP 8 5 - 15 mmol/L BLOOD UREA NITROGEN 19 5 - 27 mg/dL CREATININE 0.81 0.40 - 1.00 mg/dL GLUCOSE 111 (H) 65 - 99 mg/dL CALCIUM 9.9 8.5 - 10.5 mg/dL TOTAL PROTEIN 7.4 6.0 - 8.0 g/dL ALBUMIN 4.5 3.2 - 5.3 g/dL ALKALINE PHOSPHATASE 62 39 - 130 U/L AST 13 <=41 U/L ALT 14 <=31 U/L BILIRUBIN,TOTAL 0.4 0.3 - 1.2 mg/dL EGFR Non-Race Dependent 78 >=60 ml/min/1.73sq.m Clinical Pathology Review Collection Time: 09/02/24 1:41 PM Result Value Ref Range Case Report Clinical Pathology Report Case: [id number] Authorizing Provider: Zeina Connors MD Collected: 09/02/20241340 Ordering Location: [facility] Received: 09/02/[address] [place] [address] - Lab Pathologist: Nikhil Borjas MD Specimens: 1) - Blood, Venous 2) - Blood, Venous Final Diagnosis Monoclonal protein in gamma region, 0.9 g/dL, IgG kappa. Clinical Pathology Review Collection Time: 09/02/24 1:41 PM Result Value Ref Range Case Report Clinical Pathology Report Case: [id number] Authorizing Provider: Zeina Connors MD Collected: 09/02/20241340 Ordering Location: [facility] Received: 09/02/[address] [place] [address] - Lab Pathologist: Nikhil Borjas MD Specimens: 1) - Blood, Venous 2) - Blood, Venous Final Diagnosis Monoclonal protein in gamma region, 0.9 g/dL, IgG kappa. Diagnosis Problem list: Problem List Items Addressed This Visit Immune and Lymphatic MGUS (monoclonal gammopathy of unknown significance) - Primary Other Elevated blood protein Impression: Monoclonal gammopathy 1.2 g/dl 04/2024 History of sleep walking Plan: I reviewed the patient's CMP in the past, she has been having slightly elevated protein level at 8.5 since November 2023. Most recent protein electrophoresis showed a M spike of 1.2 g/dL. Her CBC CMP shows no at organ damage. Repeat serum protein electrophoresis August 2024 showed M spike of 0.9 g/dl. Free light chains are within normal range. Most likely her monoclonal gammopathy represent MGUS, multiple myeloma can not be ruled out at thispoint but less likely. Osseous survey 06/2024 showed T12 compression fracture (injury during sleep walking 2019 s/p kyphoplasty) DEXA scan July 2024 showed no evidence of osteoporosis. F/u in 05/2025, serum protein electrophoresis IFX CBC and CMP Thank you. Zeina Connors MD Please note that portions of this note were generated using voice recognition M*Modal dictation software. Although every effort was made to ensure the accuracy of this automated practical nursing instructor, some errors in practical nursing instructor may have occurred. CC: Patient Care Team: Hayden Camargo MD as PCP - General (Family Medicine) PCP:HAYDEN CAMARGO Referring MD: Sid Murphy APRN-RED HAT OPEN STACK ADMINISTRATOR documented in this encounterSum[facility] Instructions* Patient Instructions* Zeina Connors MD - 09/10/2024 1:30 PM EDT SPEP, IFX, CBC, CMP 05/2025. documented in this encounterSumma Health [facility]06-13-2025 Miscellaneous Notes* Telephone Encounter - Paige Schofield CMA - 08/13/2024 10:12 AM EDT PT CALLED TO CANCEL RAG INSPECTOR REFERRAL SCHEDULED ON 08/16/24 WITH LLD, PER PT APPT IS NOT LONGER NEEDED ASSHE FOUND ANOTHER SOLUTION COORDINATOR AND GOT IN SOONER 08/13/2024 JSL documented in this encounterSumma Health [facility]06-13-2025 Telephone encounter Note* Telephone Encounter - Paige Schofield CMA - 08/13/2024 10:12 AM EDT PT CALLED TO CANCEL RAG INSPECTOR REFERRAL SCHEDULED ON 08/16/24 WITH LLD, PER PT APPT IS NOT LONGER NEEDED ASSHE FOUND ANOTHER SOLUTION COORDINATOR AND GOT IN SOONER 08/13/2024 JSL [facility] [id number] History of Present illness Narrative* Jhon Lemon RN - 06/11/2024 11:57 AM EDT New patient visit for hyperproteinemia. Orders received per Dr. Connors: In 3 months, check SPEP, IFX, FREE light chain, CBC, CMP. Osseous survey maninder. F/u in 3 months. Labs ordered. Osseous survery ordered. F/u scheduled 09/10/24 @ 1330. Pt v/u of instruction. documented in this encounterSumma Health W[facility]04-11-2025 History of Present illness Narrative* Zeina Connors MD - 06/11/2024 11:30 AM EDT Images from the original note were not included. [facility] 06/11/24 Pietro Arango is a 69 y.o. year old female seen today in the oncology clinic. Chief Complaint Patient presents with New Patient History of Present Illness: Mrs. Arango is a 69 y.o. female who is [...] 08/17/2019 [facility] by [facility] Family History Problem [...] were clear to auscultation. There was no dullnessto percussion. Cardiac: Regular rate and rhythm, S1 [...] myeloma can not be ruled out at thispoint but less likely. In 3 months, check SPEP, IFX, FREE light chain, CBC, CMP. Osseous survey maninder. F/u in 3 months. Thank you. Zeina Connors MD Please note that portions of this note were generated using voice recognition M*Modal dictation software. Although every effort was made to ensure the accuracy of this automated practical nursing instructor, some errors in practical nursing instructor may have occurred. CC: Patient Care Team: DEAN John as PCP - General (Family Medicine) PCP:SID MURPHY Referring MD: Sid Murphy APRN-FNP documented in this encounterSumma Health [facility]04-11-2025 Instructions* Patient Instructions* Zeina Connors MD - 06/11/2024 11:30 AM EDT In 3 months, check SPEP, IFX, FREE light chain, CBC, CMP. Osseous survey maninder. F/u in 3 months. documented in this encounterSumma Health W[facility]08-22-2024 History of Present illness Narrative* Teena Carrillo DPM - 10/23/2023 3:30 PM EDT Images from the original note were not included. Subjective Patient ID: Pietro Arango is a 68 y.o. female who presents for DM Foot Care (Pietro Arango 68yo Patient presents for Diabetic Foot check, patient relates her heels burn. Sensation started 3 months. BS 136 A1C 6.1 Jacklyn Rumschlag 06/18/2023 SS ). HPI Patient presents complaining of burning in both of her heels. She is here for a diabetic foot exam.She has been diabetic since 03/2021 and states her sugars are well controlled. Her last hemoglobin A1c was 6.1 percent. She states she has had this issue in the past, she was seen for it here in 2021.The pain did resolve in approximately 2-3 months [...] Posterior tibial tendon. NO pain with palpation ofthe tarsal tunnel MUSCLE STRENGTH 5/5 for dorsiflexion, [...] with neurological manifestations, not stated as uncontrolled(250.60) (CMS/[facility]) E11.49 3. 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 Gastrocnemius equinus of left lower extremity M62.462 Reviewed findings of diabetic foot exam - intact sensation, good Peripheral circulation. I do not believe that the burning in her heels is peripheral neuropathy. We reviewed importance of maintaininggood control of blood sugars. They are to get into a habit of looking at their feet or have someonelook at them. They are to look for [...] on Salvador's running to be fit and measuredfor shoes. Patient is unsure if she will do this due to the financial commitment. Advise no flip flops, slippers nor bare feet. Explain the anatomy of the plantar fascia and equinus. Demonstrate stretching exercises and give handout for the same. Also advise icing therapy. Patient tried Powerstep or thotics and will take them; they felt comfortable. [...] or corrected. Thank you for your understanding. Teena Carrillo DPM documented in this encounter[facility]* Diagnosis Plantar fasciitis, bilateral- Primary Type II or unspecified type diabetes mellitus with neurological manifestations, not stated as uncontrolled(250.60) (CMS/HCC) Type II or unspecified type diabetes mellitus with neurological manifestations, not stated as uncontrolled Gastrocnemius equinus of right lower extremity Gastrocnemius equinus of left lower extremity documented in this encounter [facility]* Diagnosis Monoclonal gammopathy- Primary Monoclonal paraproteinemia Elevated blood protein Other disorders of plasma protein metabolism documented in this encounter [facility]* Diagnosis Hyperproteinemia- Primary Other disorders of plasma protein metabolism documented in this encounter [facility]* Diagnosis Hyperproteinemia- Primary Other disorders of plasma protein metabolism Monoclonal gammopathy Monoclonal paraproteinemia Elevated blood protein Other disorders of plasma protein metabolism documented in this encounter [facility]* Diagnosis MGUS (monoclonal gammopathy of unknown significance)- Primary Monoclonal paraproteinemia Elevated blood protein Other disorders of plasma protein metabolism documented in this encounter [facility]* Diagnosis MGUS (monoclonal gammopathy of unknown significance)- Primary Monoclonal paraproteinemia Elevated blood protein Other disorders of plasma protein metabolism Hyperproteinemia Other disorders of plasma protein metabolism Monoclonal gammopathy Monoclonal paraproteinemia documented in this encounter [facility] SystemEvaluation noteNo assessment information available [facility] Work Phone: InstructionsNot on filedocumented in this encounter [facility] SystemInstructionsNot on filedocumented in this encounter [facility] Health SystemInstructionsNot on filedocumented in this encounter [facility] SystemInstructionsNot on filedocumented in this encounter [facility] SystemReason for referral (narrative)No reason for referral information availableC[facility]innati [facility] Work Phone: Summary Purpose Family History No Family History Records FoundNo Family History Records FoundNo Family History Records FoundNo Family History Records FoundNo Family History Records FoundNo Family History Records FoundNo Family History Records Found Advance Directives No Advanced Directives Records Found Advance Directive Response Recorded Date/ Time Advance Directives No April 1:56pm Hospital Course Note [facility] Discharge Summary PERSON INFORMATION Name PIETRO ARANGO Age 63 Years 51 Sex FEMALE Language Somali PCP JEFFERY HERMAN Marital Status Single Med Service Ambulatory Surgery Acct# Arrival 07/22/18 11:48:00 Visit Reason surgery - KYPHOPLASTY T12 Acuity LOS Address: [address] [place] [address] Comment: PROVIDER INFORMATION VITALS INFORMATION Vital Sign [...] (Avapro (more content not included)... Note Patient: PIETRO ARANGO Age: 63 years Sex: FEMALE : 51 [...] Vinny Eli MD Procedure Findings Note Patient: PIETRO ARANGO Age: 63 years Sex: FEMALE : 51 [...] on: 07/22/2018 16:00 EDT] Vinny Eli MD Chief Complaint and Reason for Visit Chief Complaint Admit Date R92.8 October 08, 2024 9:2 0am Chief Complaint Admit Date R92.8 October 08, 2024 9:2 0am R92.8 October 21, 2024 10 :31am Reason for Visit Admit Date Breast calcification, left October 21, 2024 10:31am Additional Source Comments INFORMATION SOURCE (unrecogn ized section and content) DATE CREATED AUTHOR 08/19/2017 [facility] DATE CREATED AUTHOR AUTHOR'S ORGANIZ ATION 08/09/2018 [facility] DATE CREATED AUTHOR AUTHOR'S ORGANIZ ATION 11/23/2019 [facility] DATE CREATED AUTHOR AUTHOR'S ORGANIZ ATION 03/21/2022 [facility] DATE CREATED AUTHOR AUTHOR'S ORGANIZ ATION 10/25/2023 [facility] DATE CREATED AUTHOR AUTHOR'S ORGANIZ ATION 09/15/2024 [facility] DATE CREATED AUTHOR AUTHOR'S ORGANIZ ATION 10/23/2024 [facility] Reason for Visit (unrecogniz ed section and content) ReasonCommentsDM Foot CareBeatrice Nba 68yo Patient presents for Diabetic Foot check, patient relates her heels burn. Sensation started 3 months. BS 136 A1C 6.1 Jacklyn Rumschlag 06/18/2023 SSReasonCommentsNew PatientReasonComments Follow-up Care Teams (unrecognized sec tion and content) Team MemberRelationshipSpecialtyStart DateEnd Date Unallocated, Dean Mensah MD [address] [place] [address] PCP - Generalmi Rygdkqbm73/13/23 Shannan Garvey MD [address] [place] [address] PCP - [facility]03/03/23Team MemberRelationshipSpecialtyStart DateEnd Date Unallocated, Dean Mensah MD [address] [place] [address] PCP - [facility] Yxsvuumo24/13/23 Shannan Garvey MD [address] [facility] [place] [address] PCP - [facility]03/03/23Team MemberRelationshipSpecialtyStart DateEnd Date Sid Murphy APRN-FNP [address] [address] PCP - [facility] Medicine11/11/23Team MemberRelationshipSpecialtyStart DateEnd Date Sid Murphy APRN-FNP [address] [place] [address] PCP - GeneralFamily Medicine11/11/23Team MemberRelationshipSpecialtyStart DateEnd Date Hayden Camargo MD [address] [facility], [place] [address] PCP - GeneralFamily Medicine06/11/24Team MemberRelationshipSpecialtyStart DateEnd Date Hayden Camargo MD [address] [facility], [place] [address] PCP - GeneralCass [facility] Systemly Medicine06/11/24Team MemberRelationshipSpecialtyStart DateEnd Date Hayden Camargo MD [address] [facility], [facility] [place] [address] PCP - Generalmi Medicine06/11/24Team MemberRelationshipSpecialtyStart DateEnd Date Hayden Camargo MD [address] [facility], [facility] [place] [place] [address] PCP - [facility] Medicine06/11/24 Team Status: Active Member Role Status Santos Camargo MD Primary Care Provider Active Team Status: Inactive Member Role Status Santos Camargo MD Primary Care Provider Active Start: October 08, 2024 End: October 08, 2024Joann Kim ProviderActiveStart: October 08, 2024 End: October 08, 2024 Team Status: Inactive Member Role Status Santos Camargo MD Primary Care Provider Active Start: October 21, 2024 End: October 21, 2024Joann Kim ProviderActiveStart: October 21, 2024 End: October 21, 2024 Goals (unrecognized section and content) Goals may be documented in a n alternate section FOR RECORDS PERTAINING TO PATIENTS WHO ARE [...] BE BASED ON THE PRIMARY CLINICAL RECORDS. [facility] [employer] [facility]. provides no warranty or guarantee of the accuracy or completeness of information in this document.
[2024-12-22 10:30] LABS: Hematocrit 37.6 % (36.0-48.0); Hemoglobin 12.3 g/dL (12.0-16.0); Immature Granulocytes Abs Auto 0.01 10^3/uL (0.00-0.03); Immature Granulocytes Pct Auto 0.2 % (0.0-0.5); Lymphocytes Absolute Auto 2.0 10^3/uL (1.2-3.8); Mean Corpuscular HGB Conc 32.7 g/dL (29.9-35.2); Mean Corpuscular Hemoglobin 29.8 pg (26.7-34.0); Mean Corpuscular Volume 91.0 fL (81.0-99.0); Platelet Count 282 10^3/uL (150-450); Red Blood Count 4.13 10^6/uL (4.20-5.40); White Blood Count 5.9 10^3/uL (4.0-11.0)
[2024-12-22 11:11] LABS: Alanine Aminotransferase 25 U/L (14-59); Albumin Globulin Ratio 1.0; Albumin Level 4.2 g/dL (3.4-5.0); Alkaline Phosphatase 71 U/L (46-116); Anion Gap 13.8; Aspartate Amino Transferase 16 U/L (15-37); Blood Urea Nitrogen 19.0 mg/dL (7.0-18.0); Calcium 9.9 mg/dL (8.5-10.1); Carbon Dioxide 25.4 mmol/L (21.0-32.0); Chloride 103 mmol/L (98-107); Cholesterol 146 mg/dL (<=200); Estimated GFR (African America >60 (>=60 mL/min/1.73m^2); Estimated GFR (Non-African Ame >60 (>=60 mL/min/1.73m^2); Free T3 3.11 pg/mL (2.18-3.98); Globulin 4.3 g/dL; Glucose 121 mg/dL (74-106); HDL Cholesterol 69 mg/dL (40-60); Potassium 4.2 mmol/L (3.5-5.1); Sodium 138 mmol/L (136-145); Thyroid Stimulating Hormone 0.965 uIU/mL (0.358-3.740); Total Protein 8.5 g/dL (6.4-8.2); Triglycerides 44 mg/dL (<=150); VLDL CHOLESTEROL 8.8 mg/dL
== END 2024-12-22 09:46 | disposition home or self-care (01) ==
LOC: LAB 09:49
PROVIDERS: PCP Family Medicine; Visit Provider Family Medicine
DX: Z79.899 Other long term (current) drug therapy (principal); R53.83 Other fatigue; E78.00 Pure hypercholesterolemia, unspecified; Z12.11 Encounter for screening for malignant neoplasm of colon; D64.9 Anemia, unspecified; E11.9 Type 2 diabetes mellitus without complications
CPT/HCPCS: 36415; 80053; 80061; 83036; 84436; 84443; 84481; 85025

== ENCOUNTER 2024-12-29 12:54 | Outpatient (REF) | payer OTHER, SELFPAY ==
--- OUTSIDE RECORDS SUMMARY | 2024-12-30 13:00 | XMS_ITS | Clinical Summary ---
Author Organization [facility] Healthcare Address [address] [place] [address] Care Team Providers Care Media Consultant Outside Sales Name Role Phone Shannan Rosas MD Unavailable Ivan Romeo MD Primary Care Provider [phone] Allergies No known active allergies Medications MedicationSigDispense QuantityRefillsLast FilledStart DateEnd DateStatus amLODIPine (Norvasc) 10 MG tablet Active cinnamon 500 MG capsule as directed OrallyActive metFORMIN (Glucophage) 850 MG tablet Active rosuvastatin (Crestor) 10 MG tablet Active meloxicam (Mobic) 15 MG tablet Indications:Plantar fasciitis, bilateralTAKE 1 TABLET BY MOUTH DAILY FOR 21 DAYS 21 tablet 12/30/2023ctive Active Problems No known active problems Family History RelationNameStatusCommentsFatherDeceasedMotherDeceased Social History Tobacco UseTypesPacks/DayYears UsedDateSmoking Tobacco: Never Tobacco Cessation:Counseling Given: Not Answered Alcohol UseStandard Drinks/WeekCommentsNever0 (1 standard drink = 0.6 oz pure alcohol)CommentsUnknownSex and Gender InformationValueDate RecordedSex Assigned at BirthNot on fileLegal HyzUeggez28/15/2023 7:25 PM EDTGender Identity Not on fileSexual OrientationNot on file Last Filed Vital Signs Vital SignReadingTime TakenCommentsBlood Jaylvxeq864/7603 12:00 PM EST Pulse--Temperature--Respiratory Rate--Oxygen Saturation--Inhaled Oxygen Concentration--Sbvgtm04.4 kg (197 lb)10/23/2023 3:38 PM SWBOqznlw444.1 cm (5' 5 )10/23/2023 3:38 PM EDTBody Mass Index32.78010/23/2023 3:38 PM EDT Plan of Treatment Health MaintenanceDue DateLast DoneCommentsCT Hcuqxgphmnsq84/28/1954Colonoscopy 4Colorectal Cancer Tjzcrgrsf66/28/1954iabetes: Hemoglobin A1C 1953FIT-DNA1953FIT1953FOBT1953Medicare Annual Wellness (AWV)1955 9104Wqgegtaoexqsd03/28/1954Diabetes: Retinopathy Geaequpuf60/28/1964 Diabetes: Urine Protein Xrmwjrmiw19/28/3265Pqycdduad30/28/1994Pneumococcal Vaccine: 65+ Years (1 of 1 - PCV)2003Influenza Vaccine (#1)2024 Insurance Care Teams Team MemberRelationshipSpecialtyStart DateEnd Shannan Rosas MD [address] [place] [address] PCP - [facility]03/03/24 Ivan Romeo MD [address] [place] [address] PCP - GeneralFamily Medicine11/26/24
--- OUTSIDE RECORDS SUMMARY | 2024-12-30 13:00 | XMS_ITS | Clinical Summary ---
Author Organization [employer] tem Address [id number] [address] [place] [address] Care Team Providers Care Corporate Compliance Officer Name Role Phone Ivan Romeo MD Primary Care Provider [phone] Allergies No known active allergies Medications MedicationSigDispense QuantityRefillsLast FilledStart DateEnd DateStatus latanoprost (XALATAN) 0.005 % ophthalmic solution 1 drop nightly.Active irbesartan (AVAPRO) 150 mg tablet Take 150 mg by mouth nightly.Active metoprolol succinate XL (TOPROL-XL) 50 mg 24 hr tablet Take 50 mg by mouth daily.Active meclizine (ANTIVERT) 25 mg tablet Chew 25 mg and swallow 3 (three) times a day as needed for dizziness.Active rosuvastatin (CRESTOR) 10 mg tablet Active timolol (TIMOPTIC) 0.25 % ophthalmic solution Active amLODIPine (NORVASC) 10 mg tablet Active metFORMIN (GLUCOPHAGE) 850 mg tablet Active ONETOUCH DELICA PLUS LANCET 33 gauge misc 5Active ONETOUCH ULTRA TEST strip 5Active acetaminophen (TYLENOL EXTRA STRENGTH) 500 mg tablet Active cinnamon bark extract 500 mg tablet Active calcium carbonate (OS-KINGS) 600 mg elemental (1,500 mg) tablet Take 1 tablet (600 mg total) by mouth daily with breakfast.5Active calcium carbonate-vitamin D3 (OSCAL 500 + D) 500 mg (1,250 mg) - 200 units per tablet Take 1 tablet by mouth in the morning and 1 tablet in the evening. Take with meals.Active Active Problems ProblemNoted DateDiagnosed DateMGUS (monoclonal gammopathy of unknown significance)06/11/2024Elevated blood jiiyybm3706/11/2024 Family History Medical HistoryRelationNameCommentsDiabetesBrother 1DiabetesMotherGlaucomaMother HypertensionMotherRelationNameStatusCommentsBrother 1AliveBrother 2AliveFather UnknownMotherDeceased Social History Tobacco UseTypesPacks/DayYears UsedDateSmoking Tobacco: NeverSmokeless Tobacco: NeverAlcohol UseStandard Drinks/WeekCommentsNot Currently0 (1 standard drink = 0.6 oz pure alcohol)ChildcareAnswerDate QeyumulpOvsdzmevzAzjouqt20/12/2019 EmploymentAnswerDate OxqadkyyBxmizofydpLkqriaz94/12/2019Purpose - LifeAnswerDate RecordedPurpose and direction in etdsPefxikt08/11/2021CommentsNoSex and Gender InformationValueDate RecordedSex Assigned at BirthNot on fileLegal Sex Ygnhxb9210/06/2014 11:55 AM EDTGender IdentityNot on fileSexual OrientationNot on file Last Filed Vital Signs Vital SignReadingTime TakenCommentsBlood Cnxbulrj134/7207 1:35 PM EDT Qwbhi650109/10/2024 1:35 PM GFWMjjcaqetauy15.7 ??C (98.1 ??F)09/10/2024 1:35 PM EDTRespiratory Awom749509/10/2024 1:35 PM EDTOxygen Oonspucxir92%09/10/2024 1:35 PM EDTInhaled Oxygen Concentration--Yircos05 kg (189 lb 9.6 oz)09/10/2024 1:35 PM XOEIpbqay023.1 cm (5' 5 )09/10/2024 1:35 PM EDTBody Mass Index31.55009/10/2024 1:35 PM EDT Plan of Treatment Health MaintenanceDue DateLast DoneCommentsDepression Zsbswofgr78/28/1966Adult BMI Follow Up Plan1971DTaP,Tdap and Td Vaccines (1 - Tdap)1972Zoster (Shingles) Vaccine (1 of 2)1972Fall Risk Tkvthaesz47/28/2019COVID-19 Vaccine ( season)504, 10/23/2020, 10/02/2020 Influenza Kdmspvn7111/01/2024dult BMI Cexxpjbav85Tobacco Cnfakuqwe09 Medical Devices ImplantedTypeAreaManufacturerDevice IdentifierShelf Expiration DateModel / Serial / LotLens Iol Ultrasert 24.5d - [id number] - [id number] Implanted:Qty: 1 on 08/17/2019 by Bessy Acosta MD at [facility]: [id number] 24.5 / [id number] / NA Insurance Care Teams Team MemberRelationshipSpecialtyStart DateEnd Date Ivan Romeo MD [address] [place] [address] PCP - GeneralFamily Medicine06/11/24
--- OUTSIDE RECORDS SUMMARY | 2024-12-30 13:00 | XMS_ITS | Clinical Summary ---
Author Organization [facility] Address [address] [place] [address] Care Team Providers Care Patient Services Manager Name Role Phone Unavailable Primary Care Provider Unavailabl e Social History Tobacco UseTypesPacks/DayYears UsedDateSmoking Tobacco: Never Assessed CommentsUnknownSex and Gender InformationValueDate RecordedSex Assigned at Not on fileLegal ZslWozror87/30/2022 12:06 AM EDTGender IdentityNot on file Sexual OrientationNot on file Last Filed Vital Signs Vital SignReadingTime TakenCommentsBlood Cdsdwvjk431/9005 3:34 PM EDT Pulse--Temperature--Respiratory Rate--Oxygen Ogrilgbmst17%07/07/2018 3:30 PM EDT Inhaled Oxygen Concentration--Hlozja24.9 kg (207 lb)07/07/2018 3:29 PM EDTHeight 166.4 cm (5' 5.5 )07/07/2018 3:30 PM EDTBody Mass Index33.9207/07/2018 3:29 PM EDT Plan of Treatment Not on file
== END 2024-12-29 12:55 | disposition home or self-care (01) ==
LOC: LAB 12:54
PROVIDERS: PCP Family Medicine; Visit Provider Family Medicine
DX: Z79.899 Other long term (current) drug therapy (principal); R53.83 Other fatigue; E78.00 Pure hypercholesterolemia, unspecified; Z12.11 Encounter for screening for malignant neoplasm of colon; E11.9 Type 2 diabetes mellitus without complications; D64.9 Anemia, unspecified
CPT/HCPCS: G0328